=== PATIENT | male | born 1985 | race Caucasian/White ===

== ENCOUNTER 2016-06-19 22:52 | Emergency (ER) | payer SELFPAY ==
[~2016-06-19] VITALS: Ht 162.6 cm; Wt 91.3 kg
[~2016-06-19 22:52] MED LIST: ATOR-22 PO; ESOM20CA PO; LISI-461 PO
[2016-06-19 22:54] VITALS: TEMP 36.8; Ht 162.6 cm; Wt 91.3 kg
[2016-06-19 23:14] LABS: BASO % 0.5 %; BASO ABS # 0.05 K/uL (0-0.2); COMPLETE YES; EOS % 3.5 %; IG% 0.2 %; LYMPH % 38.9 %; LYMPH ABS # 4.27 K/uL (1.2-3.4); MEAN CELL VOLUME 86.9 fL (80-100); MEAN CORPUSCULAR HEMOGLOBIN 31.8 pg (25-34); MEAN CORPUSCULAR HGB CONC 36.6 g/dl (32-36); MEAN PLATELET VOLUME 10.1 fL (7.4-10.4); MONO % 11.1 %; NEUT % 45.8 %; PLATELET COUNT 203 K/uL (130-400); RED BLOOD COUNT 5.41 M/uL (4.7-6.1); WHITE BLOOD COUNT 10.99 K/uL (4.8-10.8)
[2016-06-19 23:16] VITALS: O2SAT 96
[2016-06-19] MEDS ORDERED: KETOROLAC TROMETHAMINE 30 MG/ML VIAL IV STA (23:30)
[2016-06-19 23:38] LABS: ALT/SGPT 42 U/L (12-78); AST/SGOT 12 U/L (15-37); BLOOD UREA NITROGEN 6 mg/dl (7-18); BUN/CREATININE RATIO 6.8 (10-20); CALCIUM 8.7 mg/dl (8.5-10.1); CARBON DIOXIDE 22 mmol/L (21-32); CHLORIDE 105 mmol/L (98-107); GLUCOSE 133 mg/dl (70-99); POTASSIUM 3.4 mmol/L (3.5-5.1); SODIUM 140 mmol/L (136-145)
[2016-06-19 23:44] LABS: ALKALINE PHOSPHATASE 53 U/L (45-117)
[2016-06-20] MEDS ORDERED: PRLSR20 PO (00:38)
[2016-06-20] MEDS ORDERED: ATOR10TA88 PO (00:39)
[2016-06-20] MEDS ORDERED: POTASSIUM CHLORIDE 10 MEQ TABCR PO STA (01:14)
--- NOTE | 2016-06-20 01:35 | EMERGENCY ROOM VISIT NOTE ---
History First contact with patient: 22:57 Chief Complaint: CHEST PAIN Stated Complaint: CHEST PAIN/PAIN IN L ARM, SHAKES, LIGHT HEADED Nursing Triage Summary: pt co intermittent cp since friday, states it is his left chest. hx smoking and htn. pt denies anything making pain worse or better. states he "sometimes feels sob." denies dizziness. co cough. pt alert and oriented x4. breathing WNL. History of Present Illness The patient is a 30 year old male who presents to the Emergency Room with complaints of chest pain for the past week described as aching, ranging in severity currently 4 out of 10 to the lower anterior chest. It does not radiate. Coughing makes it worse. Patient does smoke. Patient denies dyspnea , fever, chills, abdominal pain, nausea, vomiting, diarrhea, recent travel, leg pain or swelling. He does smoke. He has high blood pressure and cholesterol. No stress test in the past. His grandmother of heart disease in her 60s. No drug use. Review of Systems See HPI for pertinent positives & negatives. A total of 10 systems reviewed and were otherwise negative. Past Medical/Surgical History Medical Problems: (1) Acid reflux (2) Hypercholesteremia (3) Hypertension Family History Cancer Diabetes mellitus Hypertension Lung disease Social History Smoking Status: Current Every Day Smoker Alcohol Use: occasionally Drug Use: none Marital Status: Housing Status: lives with family Occupation Status: employed Current/Historical Medications Scheduled Atorvastatin (Lipitor), 10 MG PO DAILY Lisinopril (Lisinopril), 10 MG PO DAILY Omeprazole (Prilosec), 20 MG PO DAILY Allergies Coded Allergies: No Known Allergies (Unverified , NONE, 08/23/15) Physical Exam Vital Signs Date Time Temp Pulse Resp B/P Pulse Ox O2 Delivery O2 Flow Rate FiO2 06/20/16 00:13 86 18 153/97 97 Room Air 06/19/16 23:16 96 Room Air 06/19/16 23:14 96 Room Air 06/19/16 23:05 75 06/19/16 22:54 36.8 85 20 160/99 96 Room Air Physical Exam VITALS: Vitals are noted on the nurse's note and reviewed by myself. Vital signs stable. GENERAL: Pleasant male with tobacco odor, in no acute distress, nondiaphoretic, well-developed well-nourished. SKIN: The skin was without rashes, erythema, edema, or bruising. There is no tenting of the skin. Capillary reflex less than 2 seconds. HEAD: Normocephalic atraumatic. EARS: External auditory canals clear, tympanic membranes pearly knowles without erythema or effusion bilaterally. EYES: Pupils equal round and reactive to light and accommodation. Conjunctivae without injection, sclerae without icterus. Extraocular movements intact. NOSE: Patent, turbinates without inflammation or discharge. MOUTH: Mucous membranes moist. Pharynx without erythema or exudate. Uvula midline. Airway patent. Tongue does not deviate. NECK: Supple without nuchal rigidity. No lymphadenopathy. No thyromegaly. Cervical spine is nontender. No JVD. HEART: Regular rate and rhythm without murmurs gallops or rubs. Chest nontender to palpation LUNGS: Clear to auscultation bilaterally without wheezes, rales or rhonchi. No dullness to percussion. No retractions or accessory muscle use. ABDOMEN: Positive bowel sounds x 4. Normal tympanic percussion. Soft, nontender, without masses or organomegaly. Asencio sign negative. No guarding or rebound tenderness. MUSCULOSKELETAL: No muscle atrophy, erythema, or edema noted. NEURO: Patient was alert and oriented to person place and time. Normal sensation to light and sharp touch. No focal neurological deficits. Medical Decision & Procedures Laboratory Results 06/19/16 23:02 Red Blood Count 5.41, Mean Corpuscular Volume 86.9, Mean Corpuscular Hemoglobin 31.8, Mean Corpuscular Hemoglobin Concent 36.6, Mean Platelet Volume 10.1, Neutrophils (%) (Auto) 45.8, Lymphocytes (%) (Auto) 38.9, Monocytes (%) (Auto) 11.1, Eosinophils (%) (Auto) 3.5, Basophils (%) (Auto) 0.5, Neutrophils # (Auto ) 5.04, Lymphocytes # (Auto) 4.27, Monocytes # (Auto) 1.22, Eosinophils # (Auto ) 0.39, Basophils # (Auto) 0.05 06/19/16 23:02 Test 06/19/16 23:02 06/19/16 23:08 06/20/16 01:17 White Blood Count 10.99 K/uL (4.8-10.8) Red Blood Count 5.41 M/uL (4.7-6.1) Hemoglobin 17.2 g/dL (14.0-18.0) Hematocrit 47.0 % (42-52) Mean Corpuscular Volume 86.9 fL (80-100) Mean Corpuscular Hemoglobin 31.8 pg (25-34) Mean Corpuscular Hemoglobin Concent 36.6 g/dl (32-36) Platelet Count 203 K/uL (130-400) Mean Platelet Volume 10.1 fL (7.4-10.4) Neutrophils (%) (Auto) 45.8 % Lymphocytes (%) (Auto) 38.9 % Monocytes (%) (Auto) 11.1 % Eosinophils (%) (Auto) 3.5 % Basophils (%) (Auto) 0.5 % Neutrophils # (Auto) 5.04 K/uL (1.4-6.5) Lymphocytes # (Auto) 4.27 K/uL (1.2-3.4) Monocytes # (Auto) 1.22 K/uL (0.11-0.59) Eosinophils # (Auto) 0.39 K/uL (0-0.5) Basophils # (Auto) 0.05 K/uL (0-0.2) RDW Standard Deviation 40.5 fL (36.4-46.3) RDW Coefficient of Variation 12.7 % (11.5-14.5) Immature Granulocyte % (Auto) 0.2 % Immature Granulocyte # (Auto) 0.02 K/uL (0.00-0.02) Anion Gap 13.0 mmol/L (3-11) Est Creatinine Clear Calc Drug Dose 120.1 ml/min Estimated GFR () 130.5 Estimated GFR (Non- 112.6 BUN/Creatinine Ratio 6.8 (10-20) Calcium Level 8.7 mg/dl (8.5-10.1) Total Bilirubin 0.5 mg/dl (0.2-1) Direct Bilirubin 0.1 mg/dl (0-0.2) Aspartate Amino Transf (AST/SGOT) 12 U/L (15-37) Alanine Aminotransferase (ALT/SGPT) 42 U/L (12-78) Alkaline Phosphatase 53 U/L (45-117) Total Creatine Kinase 122 U/L (39-308) Creatine Kinase MB < 0.5 ng/ml (0.5-3.6) Creatine Kinase MB Ratio (0-3.0) Troponin I < 0.015 ng/ml (0-0.045) Total Protein 7.6 gm/dl (6.4-8.2) Albumin 4.2 gm/dl (3.4-5.0) Lipase 132 U/L (73-393) Bedside D-Dimer 87 ng/mlFEU (0-450) Bedside Troponin I 0.000 ng/ml (0-0.045) Medications Administered Medications (Trade) Dose Ordered Sig/Leon Route Start Time Stop Time Status Last Admin Dose Admin Ketorolac Tromethamine (Toradol Inj) 30 mg NOW STAT IV 06/19/16 23:30 06/19/16 23:31 DC 06/19/16 23:37 30 MG ED Course Prior records/ancillary studies reviewed. Triage Nursing notes reviewed. The patient's history was concerning for chest pain. Differential diagnosis: Etiologies such as cardiac ischemia, aortic dissection, pulmonary embolism, pneumonia, pneumothorax, musculoskeletal, infections, pericarditis, myocarditis , esophageal rupture, gastrointestinal, as well as others were entertained. Physical examination: As above. ER treatment provided: Toradol On reassessment the patient felt better. Diagnostic interpretation by me: The electrocardiogram was negative for pathologic change. Normal sinus, normal intervals, no acute ST-T wave changes. Impression normal sinus rhythm interpreted by myself The labs revealed negative troponin 2. Negative d-dimer Imaging studies: Chest x-ray with no acute consolidation, free air or pneumothorax per my interpretation Exam and history seem consistent with chest pain does not appear to be cardiac in nature. This could be related to pleurisy. Patient has been coughing. No pneumonia on x-ray. 2 negative troponins that are 2 hours apart. Negative d- dimer. Normal EKG. Patient was advised to rest, stay well-hydrated and he was encouraged to quit smoking. She was advised follow-up family medicine in a few days or here in the ER sooner for chest pain, difficulty breathing, fevers, worsening signs or symptoms or as needed. By the evaluation outlined above emergent etiologies such as cardiac ischemia, aortic dissection, pulmonary embolism, pneumonia, pneumothorax, infections, pericarditis, myocarditis, gastrointestinal, as well as others were deemed relatively unlikely. The pt informed about the findings as listed above. All questions were answered and pleased with the treatment. Return instructions were outlined and the patient was discharged in stable condition. Referral: The patient was referred back to primary care physician for follow-up in 2 to 3 days for a recheck of the current condition. Case reviewed with my attending Medical Decision As above Impression Primary Impression: Precordial chest pain Departure Information Dispostion Home / Self-Care Condition GOOD Referrals Erika Sebastian D.O. (PCP) Patient Instructions A Signature Page, My [facility] Additional Instructions Ibuprofen(Motrin, Advil) may be used for fever or pain. Use 600mg every six hours as needed. Take with food. Avoid using more than 2400mg in a 24 hour period. Do not use 2400mg per day for more than three consecutive days without physician direction. Prolonged inappropriate use can lead to stomach upset or ulcers. (AND/OR) Acetaminophen(Tylenol) may be used for fever or pain. Use 1000mg every six hours as needed. Avoid using more than 3000mg in a 24 hour period. Rest and drink plenty of fluids as tolerated. Continue current medications. Avoid strenuous activities and anything that worsens your pain. Resume normal activities once your symptoms resolve. Return to the ER immediately for worsening or persistent chest pain, abdominal pain, vomiting, fevers, chest pains, difficulty breathing, worsening of your condition, or as needed. Follow up with your primary physician in 2-3 days for a recheck of your current condition.
[2016-06-20 01:45] VITALS: BP 141/90; PULSE 71; O2SAT 98
--- NOTE | 2016-06-20 07:27 | DIAGNOSTIC IMAGING REPORT ---
SINGLE VIEW CHEST CLINICAL HISTORY: Atypical chest pain. FINDINGS: An AP, portable, upright chest radiograph is compared to study dated 12/05/2015. The cardiomediastinal silhouette is unremarkable. The lungs and pleural spaces are clear. No pneumothorax is seen. The bony thorax is grossly intact. IMPRESSION: No active disease in the chest. Electronically signed by: Carlos Alegria M.D. 06/20/2016 7:26 AM Dictated Date/Time: 06/20/2016 7:25 AM
== END 2016-06-20 01:48 | disposition home or self-care (01) ==
LOC: C.EDB 22:53 → C.EDA 06-20 01:48
DX: R07.2 Precordial pain (principal); E78.00 Pure hypercholesterolemia, unspecified; I10 Essential (primary) hypertension; K21.9 Gastro-esophageal reflux disease without esophagitis; F17.200 Nicotine dependence, unspecified, uncomplicated; Z80.9 Family history of malignant neoplasm, unspecified; Z83.3 Family history of diabetes mellitus; Z82.49 Family history of ischemic heart disease and other diseases of the circulatory system

== ENCOUNTER 2016-10-21 20:50 | Emergency (ER) | payer SELFPAY ==
[~2016-10-21] VITALS: Ht 162.6 cm; Wt 91.0 kg
[~2016-10-21 20:50] MED LIST changes: -ATOR-22 PO; +ATOR10TA82 PO; -ESOM20CA PO; +PRLSR20 PO
[2016-10-21 20:56] VITALS: TEMP 36.8; Ht 162.6 cm; Wt 91.0 kg
--- NOTE | 2016-10-21 21:04 | EMERGENCY ROOM VISIT NOTE ---
History Report prepared by Yany: Ness Macedo Under the Supervision of: Dr. Josh Bhardwaj M.D. First contact with patient: 20:56 Chief Complaint: CHEST PAIN Stated Complaint: CHEST PAINS History of Present Illness The patient is a 31 year old male who presents to the Emergency Room with complaints of persistent chest pain that began today around 0700. He currently rates his discomfort as a 5/10 in severity. The patient states that he has a history of chest pain, noting that he has been evaluated in the emergency department before for his symptoms. He states that he has followed up with cardiology in the past. The patient states that he is an every day smoker, noting that he smokes approximately 2 packs per day. He states that his pain increases when the pressure increases in his chest, noting that he notices increased pain with smoking or drinking thorough a straw. The patient states that he is noncompliant with his blood pressure medications. Source of History: patient Onset: today around 0700 Position: chest Symptom Intensity: 5/10 Timing: other (persistent) Modifying Factors (Worsening): other (increased pressure in chest, drinking through a straw, smoking) Review of Systems See HPI for pertinent positives & negatives. A total of 10 systems reviewed and were otherwise negative. Past Medical & Surgical Medical Problems: (1) Acid reflux (2) Hypercholesteremia (3) Hypertension Family History Cancer Diabetes mellitus Hypertension Lung disease Social History Smoking Status: Current Every Day Smoker Alcohol Use: occasionally Drug Use: none Marital Status: Housing Status: lives with family Occupation Status: employed Current/Historical Medications Scheduled Atorvastatin (Lipitor), 10 MG PO DAILY Lisinopril (Lisinopril), 10 MG PO DAILY Lisinopril (Zestril), 1 TAB PO DAILY Omeprazole (Prilosec), 20 MG PO DAILY Allergies Coded Allergies: No Known Allergies (Unverified , NONE, 08/23/15) Physical Exam Vital Signs Date Time Temp Pulse Resp B/P Pulse Ox O2 Delivery O2 Flow Rate FiO2 10/21/16 22:43 67 16 149/80 99 10/21/16 22:00 76 12 160/102 98 Room Air 10/21/16 21:15 97 Room Air 10/21/16 21:15 97 Room Air 10/21/16 21:15 97 Room Air 10/21/16 21:06 71 10/21/16 20:56 36.8 68 16 175/114 97 Room Air Physical Exam GENERAL: Patient is a healthy-appearing well-nourished HEAD: Normocephalic atraumatic EYES: Ocular movements intact pupils equal and react to light OROPHARYNX mucous membranes are moist no exudates present no erythema or edema present NECK: Supple no nuchal rigidity CHEST WALL: Tender to palpation on the chest wall CHEST: Good equal expansion LUNGS: Clear and equal to auscultation CARDIAC: Normal S1 and S2 ABDOMEN: Soft nontender no guarding BACK: No CVA tenderness EXTREMITIES: No pain upon palpation normal muscle strength in all groups no clubbing cyanosis or edema NEURO: Patient is following commands is answering questions appropriately. Alert and oriented x3 Cranial Nerves 2-12 grossly intact Medical Decision & Procedures ER Provider Diagnostic Interpretation: X-ray results as stated below per interpretation by me and the radiologist: SINGLE VIEW CHEST CLINICAL HISTORY: Atypical chest pain. FINDINGS: An AP, portable, upright chest radiograph is compared to study dated 06/19/2016. The cardiomediastinal silhouette is unremarkable. The lungs and pleural spaces are clear. No pneumothorax is seen. The bony thorax is grossly intact. IMPRESSION: No active disease in the chest. Electronically signed by: Carlos Alegria M.D. 10/21/2016 9:28 PM Dictated Date/Time: 10/21/2016 9:27 PM Laboratory Results 10/21/16 21:15 Red Blood Count 5.43, Mean Corpuscular Volume 88.4, Mean Corpuscular Hemoglobin 30.9, Mean Corpuscular Hemoglobin Concent 35.0, Mean Platelet Volume 9.6, Neutrophils (%) (Auto) 43.4, Lymphocytes (%) (Auto) 40.5, Monocytes (%) (Auto) 11.9, Eosinophils (%) (Auto) 3.4, Basophils (%) (Auto) 0.6, Neutrophils # (Auto ) 4.35, Lymphocytes # (Auto) 4.05, Monocytes # (Auto) 1.19, Eosinophils # (Auto ) 0.34, Basophils # (Auto) 0.06 10/21/16 21:15 Test 10/21/16 21:15 White Blood Count 10.01 K/uL (4.8-10.8) Red Blood Count 5.43 M/uL (4.7-6.1) Hemoglobin 16.8 g/dL (14.0-18.0) Hematocrit 48.0 % (42-52) Mean Corpuscular Volume 88.4 fL (80-100) Mean Corpuscular Hemoglobin 30.9 pg (25-34) Mean Corpuscular Hemoglobin Concent 35.0 g/dl (32-36) Platelet Count 213 K/uL (130-400) Mean Platelet Volume 9.6 fL (7.4-10.4) Neutrophils (%) (Auto) 43.4 % Lymphocytes (%) (Auto) 40.5 % Monocytes (%) (Auto) 11.9 % Eosinophils (%) (Auto) 3.4 % Basophils (%) (Auto) 0.6 % Neutrophils # (Auto) 4.35 K/uL (1.4-6.5) Lymphocytes # (Auto) 4.05 K/uL (1.2-3.4) Monocytes # (Auto) 1.19 K/uL (0.11-0.59) Eosinophils # (Auto) 0.34 K/uL (0-0.5) Basophils # (Auto) 0.06 K/uL (0-0.2) RDW Standard Deviation 43.5 fL (36.4-46.3) RDW Coefficient of Variation 13.5 % (11.5-14.5) Immature Granulocyte % (Auto) 0.2 % Immature Granulocyte # (Auto) 0.02 K/uL (0.00-0.02) Anion Gap 8.0 mmol/L (3-11) Est Creatinine Clear Calc Drug Dose 116.2 ml/min Estimated GFR () 126.2 Estimated GFR (Non- 108.9 BUN/Creatinine Ratio 5.9 (10-20) Calcium Level 9.3 mg/dl (8.5-10.1) Total Bilirubin 0.3 mg/dl (0.2-1) Direct Bilirubin < 0.1 mg/dl (0-0.2) Aspartate Amino Transf (AST/SGOT) 16 U/L (15-37) Alanine Aminotransferase (ALT/SGPT) 35 U/L (12-78) Alkaline Phosphatase 43 U/L (45-117) Total Creatine Kinase 165 U/L (39-308) Creatine Kinase MB 0.5 ng/ml (0.5-3.6) Creatine Kinase MB Ratio 0.3 (0-3.0) Troponin I < 0.015 ng/ml (0-0.045) Total Protein 7.3 gm/dl (6.4-8.2) Albumin 4.1 gm/dl (3.4-5.0) Lipase 121 U/L (73-393) Labs reviewed by ED physician. Medications Administered Medications (Trade) Dose Ordered Sig/Leon Route Start Time Stop Time Status Last Admin Dose Admin Sodium Chloride (Nss 1000ml) 1,000 ml @ 999 mls/hr Q1H1M STAT IV 10/21/16 21:40 10/21/16 22:40 DC 10/21/16 22:08 999 MLS/HR Ketorolac Tromethamine (Toradol Inj) 30 mg NOW STAT IV 10/21/16 21:40 10/21/16 21:41 DC 10/21/16 22:08 30 MG Potassium Chloride (Klor-Con Tab) 40 meq NOW STAT PO 10/21/16 22:01 10/21/16 22:02 DC 10/21/16 22:14 40 MEQ Lisinopril (Zestril Tab) 10 mg NOW STAT PO 10/21/16 22:02 10/21/16 22:03 DC 10/21/16 22:13 10 MG ECG Indication: chest pain Rate (beats per minute): 5/10 Rhythm: normal sinus Findings: no acute ischemic change, no ectopy ED Course 2058: Past medical records reviewed. The patient was evaluated in room A10. A complete history and physical examination was performed. 2139: Ordered Toradol Inj 30 mg IV, Sodium Chloride 1000 ml @ 999 mls/hr IV. 2200: Potassium Chloride 40 meq PO. 2201: Ordered Lisinopril 10 mg PO. 2205: I reevaluated the patient and he is resting comfortably. I discussed the exam findings with him and I discussed the treatment plan. He verbalized complete understanding and agreement. He is ready to go home. Medical Decision Differential diagnosis: Etiologies such as cardiac ischemia, aortic dissection, pulmonary embolism, pneumonia, pneumothorax, musculoskeletal, infections, pericarditis, myocarditis , esophageal rupture, gastrointestinal, as well as others were entertained. This is a 31-year-old male who presents emergency department complaining of chest pain as well as hypertension. The patient has been evaluated in the emergency department several times for this. I will note that his chest pain has been ongoing for the past 12 hours and because of this I would expect his CK -MB troponin to be elevated if this were related to cardiac ischemia. As such it is not. Based on these findings an IV was established, patient given normal saline bolus. The patient reports he has not been taking his blood pressure medication. For this reason he was given his Cipro and emergency department I strongly cautioned that the patient's blood pressure was elevated here in the emergency department and that he needed to start taking His blood pressure medication as well as stop smoking. I also advised the patient that he needs follow-up with cardiology however I will note that his chest pain appears to be reproducible on physical examination. Impression Primary Impression: Precordial chest pain Additional Impression: Hypertension Scribe Attestation The scribe's documentation has been prepared under my direction and personally reviewed by me in its entirety. I confirm that the note above accurately reflects all work, treatment, procedures, and medical decision making performed by me. Departure Information Dispostion Home / Self-Care Prescriptions Lisinopril (ZESTRIL) 10 Mg Tab 1 TAB PO DAILY for 30 Days, #30 TAB Prov: Josh Bhardwaj MD 10/21/16 Referrals No Doctor, Assigned (PCP) Bernard Hogan, Erika Little DIno. Forms HOME CARE DOCUMENTATION FORM, IMPORTANT VISIT INFORMATION, School Instructions, Work Instructions Patient Instructions Chest Pain - [facility], ED Hypertension Conf Out Of Control, My [facility] Additional Instructions Take Blood pressure medication as prescribed Follow up with DR Hogan's office No strenuous activity until follow up You have been examined and treated today on an emergency basis only. This is not a substitute for, or an effort to provide, complete comprehensive medical care. It is impossible to recognize and treat all injuries or illnesses in a single emergency department visit. It is therefore important that you follow up closely with DR Sebastian. Call as soon as possible for an appointment. Thank you for your time and consideration. I look forward to speaking with you again soon. Please don't hesitate to call us if you have any questions. Problem Qualifiers Additional Impression: Hypertension Hypertension type: unspecified secondary hypertension Qualified Codes: I15.9 - Secondary hypertension, unspecified
[2016-10-21 21:15] VITALS: O2SAT 97
[2016-10-21 21:27] LABS: BASO % 0.6 %; BASO ABS # 0.06 K/uL (0-0.2); COMPLETE YES; EOS % 3.4 %; IG% 0.2 %; LYMPH % 40.5 %; LYMPH ABS # 4.05 K/uL (1.2-3.4); MEAN CELL VOLUME 88.4 fL (80-100); MEAN CORPUSCULAR HEMOGLOBIN 30.9 pg (25-34); MEAN PLATELET VOLUME 9.6 fL (7.4-10.4); MONO % 11.9 %; NEUT % 43.4 %; PLATELET COUNT 213 K/uL (130-400); RED BLOOD COUNT 5.43 M/uL (4.7-6.1); WHITE BLOOD COUNT 10.01 K/uL (4.8-10.8)
--- NOTE | 2016-10-21 21:29 | DIAGNOSTIC IMAGING REPORT ---
SINGLE VIEW CHEST CLINICAL HISTORY: Atypical chest pain. FINDINGS: An AP, portable, upright chest radiograph is compared to study dated 06/19/2016. The cardiomediastinal silhouette is unremarkable. The lungs and pleural spaces are clear. No pneumothorax is seen. The bony thorax is grossly intact. IMPRESSION: No active disease in the chest. Electronically signed by: Carlos Alegria M.D. 10/21/2016 9:28 PM Dictated Date/Time: 10/21/2016 9:27 PM
[2016-10-21] MEDS ORDERED: SODIUM CHLORIDE 0.9% 1000ML 1,000 ML IV STA (21:40)
[2016-10-21] MEDS ORDERED: KETOROLAC TROMETHAMINE 30 MG/ML VIAL IV STA (21:40)
[2016-10-21 21:42] LABS: ALT/SGPT 35 U/L (12-78); BLOOD UREA NITROGEN 5 mg/dl (7-18); BUN/CREATININE RATIO 5.9 (10-20); CARBON DIOXIDE 26 mmol/L (21-32); CHLORIDE 105 mmol/L (98-107); CREATININE 0.92 mg/dl (0.60-1.40); GLUCOSE 93 mg/dl (70-99); POTASSIUM 3.4 mmol/L (3.5-5.1); SODIUM 139 mmol/L (136-145)
[2016-10-21 21:47] LABS: ALKALINE PHOSPHATASE 43 U/L (45-117); AST/SGOT 16 U/L (15-37); CKMB/CK RATIO 0.3 (0-3.0)
[2016-10-21 21:58] LABS: CALCIUM 9.3 mg/dl (8.5-10.1)
[2016-10-21] MEDS ORDERED: POTASSIUM CHLORIDE 20 MEQ TABCR PO STA (22:01)
[2016-10-21] MEDS ORDERED: LISINOPRIL 10 MG TAB PO STA (22:02)
[2016-10-21] MEDS ORDERED: LISI-461 PO (22:10)
[2016-10-21 22:43] VITALS: BP 149/80; PULSE 67; O2SAT 99
== END 2016-10-21 22:44 | disposition home or self-care (01) ==
LOC: C.EDB 20:51 → C.EDA 22:44
DX: R07.2 Precordial pain (principal); I15.9 Secondary hypertension, unspecified; F17.210 Nicotine dependence, cigarettes, uncomplicated; Z91.14 Patient's other noncompliance with medication regimen; K21.9 Gastro-esophageal reflux disease without esophagitis; E78.00 Pure hypercholesterolemia, unspecified; Z80.9 Family history of malignant neoplasm, unspecified; Z83.3 Family history of diabetes mellitus; Z82.49 Family history of ischemic heart disease and other diseases of the circulatory system; Z79.899 Other long term (current) drug therapy

== ENCOUNTER 2017-07-21 19:09 | Emergency (ER) | payer OTHER ==
[~2017-07-21] VITALS: Ht 162.6 cm; Wt 93.0 kg
[2017-07-21 19:46] VITALS: TEMP 36.8; Ht 162.6 cm; Wt 93.0 kg
[2017-07-21] MEDS ORDERED: IBUPROFEN 600 MG TAB PO STA (20:09)
[2017-07-21] MEDS ORDERED: HYDROCODONE/ACETAMIN 5/325MG TAB PO ONE (20:15)
--- NOTE | 2017-07-21 20:53 | DIAGNOSTIC IMAGING REPORT ---
(CHEST) THORAX WITHOUT CT DOSE: 539.28 mGy.cm CLINICAL HISTORY: 31 years-old Male with Fall from ice. Mid back and right chest pain. Acute chest injury status post fall TECHNIQUE: Multiaxial CT images of the chest were performed without contrast. A dose lowering technique was utilized adhering to the principles of ALARA. COMPARISON: The thoracic spine of same day. FINDINGS: Thyroid is homogeneous without dominant nodule. Probable residual thymic tissue of the anterior mediastinum. No pathologic adenopathy identified. Coronary arterial calcifications are seen, greater than expected in a patient of this age group. Thoracic aorta is normal in both course and caliber. There is no pneumothorax, pleural effusion or focal airspace consolidation. There are patchy ill-defined groundglass opacities of the right lower lobe with ill-defined groundglass centrilobular opacities of the bilateral lower lobes. Central airways appear patent with mild bilateral bronchial wall thickening. No acute abnormality of the imaged upper abdomen. Contracted gallbladder. Soft tissues are unremarkable. Bones appear intact. No rib or sternal fracture. Schmorl's nodes are seen within the thoracic spine. IMPRESSION: 1. No acute posttraumatic abnormality of the chest identified. 2. Subtle patchy groundglass opacities of the right lower lobe with bibasilar centrilobular groundglass opacities suggesting mild bronchopneumonia or infectious/inflammatory pneumonitis. No lobar airspace consolidations. 3. Mild bilateral bronchial wall thickening suggests bronchitis. Electronically signed by: Albino Escalante M.D. 07/21/2017 8:52 PM Dictated Date/Time: 07/21/2017 8:44 PM
--- NOTE | 2017-07-21 20:57 | DIAGNOSTIC IMAGING REPORT ---
THORACIC SPINE WITHOUT HISTORY: 31 years-old Male Fall from ice. Mid back and right chest pain acute mid thoracic spine pain status post fall COMPARISON: CT chest of same day, thoracic spine radiographs 12/09/2009 TECHNIQUE: Multiple axial CT images of the thoracic spine were obtained without contrast. A dose lowering technique was used consistent with the principals of JAIMIE. FINDINGS: No acute fracture or subluxation identified. No compression deformity. Small multilevel Schmorl's nodes are seen throughout. No significant intervertebral disc space narrowing, central canal or foraminal narrowing identified. No rib fracture identified. Mild residual thymic tissue of the anterior mediastinum. Coronary arterial disease, greater than expected in a patient of this age group. Mild groundglass opacities are noted of the bilateral lung bases. IMPRESSION: 1. Mild multilevel degenerative changes of the thoracic spine without acute fracture or subluxation. 2. Coronary arterial disease appears greater than expected in a patient of this age group. The above report was generated using voice recognition software. It may contain grammatical, syntax or spelling errors. Electronically signed by: Albnio Escalante M.D. 07/21/2017 8:56 PM Dictated Date/Time: 07/21/2017 8:52 PM
[2017-07-21 21:57] VITALS: BP 159/98; PULSE 90; O2SAT 95
[2017-07-21] MEDS ORDERED: NORCO 5/325MG HOME PACK PO ONE (22:00)
--- NOTE | 2017-07-22 00:16 | EMERGENCY ROOM VISIT NOTE ---
History First contact with patient: 20:02 Chief Complaint: BACK PAIN Stated Complaint: BACK PAIN - SHARP STABBING PAIN TO BACK AND RIBS History of Present Illness The patient is a 31 year old male who presents to the Emergency Room with complaints of mid back and right-sided rib pain after falling about 2 hours ago. The patient states that he slipped on ice, and landed onto concrete. He did not strike his head or lose consciousness. His discomfort worsens with certain range of motion. He rates his discomfort at rest at 3/10 which increases to 8/10 with certain positions. The patient does not have distinct shortness of breath or chest pain. He has not taken anything [id number] for his discomfort. Review of Systems More than 10 systems were reviewed and otherwise negative with the exception of history of present illness. Past Medical/Surgical History Medical Problems: (1) Acid reflux (2) Hypercholesteremia (3) Hypertension Family History Cancer Diabetes mellitus Hypertension Lung disease Social History Smoking Status: Current Every Day Smoker Alcohol Use: occasionally Drug Use: none Marital Status: Housing Status: lives with family Occupation Status: employed Current/Historical Medications No Active Prescriptions or Reported Meds Physical Exam Vital Signs Date Time Temp Pulse Resp B/P (MAP) Pulse Ox O2 Delivery O2 Flow Rate FiO2 07/21/17 21:57 90 18 159/98 95 07/21/17 19:46 36.8 90 18 154/83 95 Room Air Physical Exam VITALS: Vitals are noted on the nurse's note and reviewed by myself. Vital signs stable. GENERAL: Well-developed, well-nourished, white male, who is in no acute distress and resting comfortably. Patient is cooperative with the examination. HEAD: Normocephalic atraumatic. EARS: External ear normal. External auditory canals clear, tympanic membranes pearly knowles without erythema or effusion bilaterally. EYES: Pupils equal round and reactive to light and accommodation. Conjunctivae without injection, sclerae without icterus. Extraocular movements intact. NOSE: Patent, turbinates without inflammation or discharge. MOUTH: Mucous membranes moist. Tonsils are not enlarged. Pharynx without erythema, blood, or exudate. Uvula midline. Airway patent. NECK: Supple without nuchal rigidity. No lymphadenopathy. No thyromegaly. Cervical spine is nontender. HEART: Regular rate and rhythm without murmurs gallops or rubs. LUNGS: Clear to auscultation bilaterally without wheezes, rales or rhonchi. No retractions or accessory muscle use. ABDOMEN: Positive normal bowel sounds x 4. Soft, nontender, without masses or organomegaly. No guarding or rebound tenderness. MUSCULOSKELETAL: Tenderness appreciated throughout the mid right side of the thoracic spine. No upper or lower spinal tenderness appreciated. There is rib visible tenderness throughout the right side ribs roughly the seventh and eighth distribution laterally NEURO: Patient was alert and oriented to person place and time. CN II through XII grossly intact. No focal neurological deficits. Deep tendon reflexes 2+ throughout. SKIN: The skin was without rashes, erythema, edema, or bruising. Capillary refill less than 2 seconds. Medical Decision & Procedures ER Provider Diagnostic Interpretation: (CHEST) THORAX WITHOUT CT DOSE: 539.28 mGy.cm CLINICAL HISTORY: 31 years-old Male with Fall from ice. Mid back and right chest pain. Acute chest injury status post fall TECHNIQUE: Multiaxial CT images of the chest were performed without contrast. A dose lowering technique was utilized adhering to the principles of ALARA. COMPARISON: The thoracic spine of same day. FINDINGS: Thyroid is homogeneous without dominant nodule. Probable residual thymic tissue of the anterior mediastinum. No pathologic adenopathy identified. Coronary arterial calcifications are seen, greater than expected in a patient of this age group. Thoracic aorta is normal in both course and caliber. There is no pneumothorax, pleural effusion or focal airspace consolidation. There are patchy ill-defined groundglass opacities of the right lower lobe with ill-defined groundglass centrilobular opacities of the bilateral lower lobes. Central airways appear patent with mild bilateral bronchial wall thickening. No acute abnormality of the imaged upper abdomen. Contracted gallbladder. Soft tissues are unremarkable. Bones appear intact. No rib or sternal fracture. Schmorl's nodes are seen within the thoracic spine. IMPRESSION: 1. No acute posttraumatic abnormality of the chest identified. 2. Subtle patchy groundglass opacities of the right lower lobe with bibasilar centrilobular groundglass opacities suggesting mild bronchopneumonia or infectious/inflammatory pneumonitis. No lobar airspace consolidations. 3. Mild bilateral bronchial wall thickening suggests bronchitis. THORACIC SPINE WITHOUT HISTORY: 31 years-old Male Fall from ice. Mid back and right chest pain acute mid thoracic spine pain status post fall COMPARISON: CT chest of same day, thoracic spine radiographs 12/09/2009 TECHNIQUE: Multiple axial CT images of the thoracic spine were obtained without contrast. A dose lowering technique was used consistent with the principals of JAIMIE. FINDINGS: No acute fracture or subluxation identified. No compression deformity. Small multilevel Schmorl's nodes are seen throughout. No significant intervertebral disc space narrowing, central canal or foraminal narrowing identified. No rib fracture identified. Mild residual thymic tissue of the anterior mediastinum. Coronary arterial disease, greater than expected in a patient of this age group. Mild groundglass opacities are noted of the bilateral lung bases. IMPRESSION: 1. Mild multilevel degenerative changes of the thoracic spine without acute fracture or subluxation. 2. Coronary arterial disease appears greater than expected in a patient of this age group. Medications Administered Medications (Trade) Dose Ordered Sig/Leon Route Start Time Stop Time Status Last Admin Dose Admin Acetaminophen/ Hydrocodone Bitart ([place] 5/325 Tab) 1 tab NOW ONCE PO 07/21/17 20:15 07/21/17 20:16 DC 07/21/17 20:24 1 TAB Ibuprofen (Motrin Tab) 600 mg NOW STAT PO 07/21/17 20:09 07/21/17 20:10 DC 07/21/17 20:24 600 MG Acetaminophen/ Hydrocodone Bitart ([place] 5/325mg Home Pack) 1 homepack UD ONCE PO 07/21/17 22:00 07/21/17 22:01 DC 07/21/17 21:54 1 HOMEPACK ED Course Physical exam and history were performed. Nursing notes, EMR, and Medication List were personally reviewed. Patient appears to have suffered a fall on ice with injury to his back and right -sided ribs. The patient does have reproducible tenderness on palpation. He was given a dose of Vicodin and ibuprofen by mouth here in the department. CT scans were performed. The patient's CT scans are as above and reviewed by myself and radiology. He does not appear to have an acute bony abnormality. I did review the results with the patient, who is not currently having respiratory difficulty. The patient will need to follow with his primary care physician in the next few days for recheck. I will give him a home pack of a medication and invited back to the ER with any new, worsening, or concerning symptoms. The chart was completed utilizing [employer] Speech Voice Recognition Software. Grammatical errors, random word insertions, pronoun errors, and incomplete sentences are an occasional consequence of this system due to software limitations, ambient noise, and hardware issues. Any formal questions or concerns about the content, text, or information contained within the body of this dictation should be directly addressed to the provider for clarification. . Medical Decision Differential diagnosis includes, but is not limited to: Sprain, strain, fracture , dislocation, subluxation, contusion, and others Impression Primary Impression: Fall from slipping on ice Additional Impression: Contusion of back Departure Information Dispostion Home / Self-Care Condition GOOD Prescriptions No Active Prescriptions or Reported Meds Forms HOME CARE DOCUMENTATION FORM, Work Instructions, Additional Instructions: Patient was seen and evaluated today in the emergency department fo medical care. Return to work on 07/25/2017. Please excuse. IMPORTANT VISIT INFORMATION Patient Instructions [facility] Additional Instructions You were seen and evaluated today on an emergency basis only. This is not a substitute for, or an effort to provide, complete comprehensive medical care. It is not possible to recognize and treat all injuries or illnesses in a single emergency department visit. For this reason it is recommended that you followup with your primary care physician this week for recheck For baseline pain relief you may alternate ibuprofen and acetaminophen every 4 hours for pain control. Take 600 mg ibuprofen (Advil) and then 4 hours later take 1000 mg acetaminophen (Tylenol). Do not take more than 3000 mg acetaminophen in a single day. [place] (hydrocodone/acetaminophen) 5/325 mg (homepack) every 6 hours as needed for worsening breakthrough pain. Do not drink or drive on [place]. This medication will likely make you tired. Do not take [place] and Tylenol at the same time as both contain acetaminophen. [place] may cause constipation. You may wish to take an [id number] stool softener like Colace if this occurs. You are welcome to return to the emergency department anytime with new, worsening, or concerning symptoms. Work Instructions Additional Work Instructions: Patient was seen and evaluated today in the emergency department for medical care. Return to work on 07/25/2017. Please excuse. Problem Qualifiers
== END 2017-07-21 21:57 | disposition home or self-care (01) ==
LOC: C.EDB 19:10 → C.EDD 21:57
DX: S20.229A Contusion of unspecified back wall of thorax, initial encounter (principal); R07.9 Chest pain, unspecified; W00.0XXA Fall on same level due to ice and snow, initial encounter; I10 Essential (primary) hypertension; E78.00 Pure hypercholesterolemia, unspecified; F17.210 Nicotine dependence, cigarettes, uncomplicated

== ENCOUNTER 2017-08-05 22:24 | Emergency (ER) | payer OTHER ==
[~2017-08-05] VITALS: Ht 162.6 cm; Wt 91.5 kg
[2017-08-05 22:26] VITALS: TEMP 36.8; Ht 162.6 cm; Wt 91.5 kg
[2017-08-05] MEDS ORDERED: ACETAMINOPHEN 325 MG TAB PO STA (22:32)
[2017-08-05] MEDS ORDERED: IBUPROFEN 600 MG TAB PO STA (22:32)
[2017-08-05] MEDS ORDERED: DOXYCYCLINE HYCLATE 100 MG CAP PO STA (22:32)
--- NOTE | 2017-08-05 22:41 | EMERGENCY ROOM VISIT NOTE ---
History Report prepared by Yany: Lamine Mckeon Under the Supervision of: Dr. Chapito Banegas M.D. First contact with patient: 22:32 Chief Complaint: BITE Stated Complaint: ACHES, RANDOM FALLING OVER, TICK BITE History of Present Illness The patient is a 31 year old white male with a past medical history of HTN and HLD who presents to the ED with a cc of persistent weakness beginning yesterday morning. Positive tick bite (removed), lower extremity joint pain, black area on right thigh where bite was. Negative nausea, vomiting. He notes that he probably got bitten by the tick 2 days ago, and removed the tick bite yesterday afternoon by himself. The patient says that he does not take any medications on a daily basis, and he has no surgical history. He is a smoker. Source of History: patient Onset: Yesterday morning Position: other (global) Symptom Intensity: tick bite Quality: other (weakness) Timing: other (persistent) Associated Symptoms: No nausea, No vomiting Note: Positive lower extremity joint pain, black area on right thigh where bite was. Review of Systems See HPI for pertinent positives and negatives. A total of ten systems were reviewed and were otherwise negative. Past Medical & Surgical Medical Problems: (1) Acid reflux (2) Hypercholesteremia (3) Hypertension Family History Cancer Diabetes mellitus Hypertension Lung disease Social History Smoking Status: Current Every Day Smoker Alcohol Use: occasionally Drug Use: none Marital Status: Housing Status: lives with family Occupation Status: employed Current/Historical Medications Scheduled Atorvastatin (Lipitor), 10 MG PO DAILY Doxycycline Monohydrate (Monodox), 100 MG PO BID Lisinopril (Lisinopril), 10 MG PO DAILY Omeprazole (Prilosec), 20 MG PO DAILY [Hydroxycut], 1 TAB PO DAILY Allergies Coded Allergies: No Known Allergies (Unverified , NONE, 08/23/15) Physical Exam Vital Signs Date Time Temp Pulse Resp B/P (MAP) Pulse Ox O2 Delivery O2 Flow Rate FiO2 08/05/17 22:26 36.8 77 18 125/77 96 Room Air Physical Exam GENERAL: Awake, alert, well-appearing, NAD HENT: Normocephalic, atraumatic. EYES: Normal conjunctiva. Sclera non-icteric. NECK: Supple. No nuchal rigidity. FROM. RESPIRATORY: CTAB, no rhonchi, wheezing, crackles CARDIAC: RRR, no MRG ABDOMEN: Soft, NTND, BS+ MSK: Proximal anterior thigh, small half-cm eschar with surrounding blanching erythema. Compartments are soft in that thigh, MVI distally, good ROM of hip, knee, and ankle. No chest wall TTP. NEURO: GCS 15, CN 2-12 intact, moves all 4s on command SKIN: No rash or jaundice noted. Medical Decision & Procedures Laboratory Results 08/05/17 22:00 Red Blood Count 4.94, Mean Corpuscular Volume 88.7, Mean Corpuscular Hemoglobin 33.0, Mean Corpuscular Hemoglobin Concent 37.2, Mean Platelet Volume 9.8, Neutrophils (%) (Auto) 47.0, Lymphocytes (%) (Auto) 34.5, Monocytes (%) (Auto) 13.1, Eosinophils (%) (Auto) 4.6, Basophils (%) (Auto) 0.6, Neutrophils # (Auto ) 4.85, Lymphocytes # (Auto) 3.55, Monocytes # (Auto) 1.35, Eosinophils # (Auto ) 0.47, Basophils # (Auto) 0.06 08/05/17 22:00 Test 08/05/17 22:00 White Blood Count 10.30 K/uL (4.8-10.8) Red Blood Count 4.94 M/uL (4.7-6.1) Hemoglobin 16.3 g/dL (14.0-18.0) Hematocrit 43.8 % (42-52) Mean Corpuscular Volume 88.7 fL (80-100) Mean Corpuscular Hemoglobin 33.0 pg (25-34) Mean Corpuscular Hemoglobin Concent 37.2 g/dl (32-36) Platelet Count 190 K/uL (130-400) Mean Platelet Volume 9.8 fL (7.4-10.4) Neutrophils (%) (Auto) 47.0 % Lymphocytes (%) (Auto) 34.5 % Monocytes (%) (Auto) 13.1 % Eosinophils (%) (Auto) 4.6 % Basophils (%) (Auto) 0.6 % Neutrophils # (Auto) 4.85 K/uL (1.4-6.5) Lymphocytes # (Auto) 3.55 K/uL (1.2-3.4) Monocytes # (Auto) 1.35 K/uL (0.11-0.59) Eosinophils # (Auto) 0.47 K/uL (0-0.5) Basophils # (Auto) 0.06 K/uL (0-0.2) RDW Standard Deviation 42.1 fL (36.4-46.3) RDW Coefficient of Variation 13.1 % (11.5-14.5) Immature Granulocyte % (Auto) 0.2 % Immature Granulocyte # (Auto) 0.02 K/uL (0.00-0.02) Anion Gap 6.0 mmol/L (3-11) Est Creatinine Clear Calc Drug Dose 126.1 ml/min Estimated GFR () 132.7 Estimated GFR (Non- 114.5 BUN/Creatinine Ratio 10.5 (10-20) Calcium Level 8.4 mg/dl (8.5-10.1) Medications Administered Medications (Trade) Dose Ordered Sig/Leon Route Start Time Stop Time Status Last Admin Dose Admin Ibuprofen (Motrin Tab) 600 mg NOW STAT PO 08/05/17 22:32 08/05/17 22:42 DC 08/05/17 22:59 600 MG Acetaminophen (Tylenol Tab) 650 mg NOW STAT PO 08/05/17 22:32 08/05/17 22:42 DC 08/05/17 22:59 650 MG Doxycycline Hyclate (Vibramycin Cap) 100 mg NOW STAT PO 08/05/17 22:32 08/05/17 22:42 DC 08/05/17 22:59 100 MG ED Course 2234: The patient was evaluated in room B9. A complete history and physical exam was performed. 1157: Upon reexamination, the patient was feeling well. I discussed the test results and treatment plan with him. The patient will be d/c'ed to home w/ antibiotics. Medical Decision The patient is a 31 year old white male with a past medical history of HTN and HLD who presents to the ED with a cc of persistent weakness beginning yesterday morning. Positive tick bite (removed), lower extremity joint pain, black area on right thigh where bite was. Negative nausea, vomiting Differential diagnosis: Lyme disease, cellulitis Patient was seen and evaluated the bedside. Patient did state that he had a tick bite that he noticed yesterday. Patient removed it. This was noted on the right upper thigh. Patient was complaining of some mild joint discomfort as well. Patient not taking anything for pain. Patient does have a area of small eschar with surrounding erythema. Not a true target lesion at this time. Given that the patient states that it was a tick with the erythema and the patient was given doxycycline. Patient was also tested for Lyme's. Patient's blood work did show mild hypokalemia and hypocalcemia. Patient was told of these findings. Patient was given a prescription for doxycycline. Given that true Lyme's arthritis is more of a late manifestation he was treated for 14 days and not for 28 days. Patient was deemed suitable for outpatient follow-up and treatment at this time. Patient was counseled on smoking cessation. Patient was also told that he may apply warm compresses to the area and when he is not he should apply bandage with antibiotic limit. Patient was given strict follow-up, discharge, and return precautions. All questions were answered. Patient was deemed suitable for outpatient follow-up at this time. Patient agreed with the plan of care and was safely discharged home. Medication Reconcilliation Current Medication List: was personally reviewed by me Blood Pressure Screening Patient's blood pressure: Normal blood pressure Impression Primary Impression: Lyme disease Additional Impressions: Tick bite of right lower leg Hypokalemia Hypocalcemia Encounter for smoking cessation counseling Scribe Attestation The scribe's documentation has been prepared under my direction and personally reviewed by me in its entirety. I confirm that the note above accurately reflects all work, treatment, procedures, and medical decision making performed by me. Departure Information Dispostion Home / Self-Care Prescriptions Doxycycline Monohydrate (Monodox) 100 Mg Cap 100 MG PO BID for 14 Days, #28 CAP Prov: Chapito Banegas M.D. 08/05/17 Referrals Erika Sebastian D.O. (PCP) Patient Instructions ED Bite Tick Abx Tx, ED Facts Tick, ED Hypocalcemia, ED Lyme Disease, ED Smoking Cessation, Hypokalemia [place], [facility] Additional Instructions Please return to the emergency department if you have worsening or recurrent symptoms not amenable to at-home treatment. Please call for a follow-up appointment with her primary care physician. Please take your medications as prescribed. If you have other concerns and/or complaints please feel free to also call your primary care physician's office or return the ED for further evaluation, management, and treatment. You may take 600 mg Ibuprofen every 6 hours as needed for pain with food for no more than 2 consecutive days. You may take tylenol 1000 mg every 6 hours as needed for pain. You may take motrin and tylenol separately or at the same time. You may apply warm compresses to the bite area. Apply some antibiotic ointment to the area and bandage. Take your medications as prescribed. If taking an antibiotic consider taking a probiotic and/or eating yogurt, but at the least, please take with food as it can cause upset stomach. Consider smoking cessation. You have been examined and treated today on an emergency basis only. This is not a substitute for, or an effort to provide, complete comprehensive medical care. It is impossible to recognize and treat all injuries or illnesses in a single emergency department visit. It is therefore important that you follow up closely with [facility], your PCP, and/or your specialist(s). Call as soon as possible for an appointment. Thank you for your time and consideration. I look forward to speaking with you again soon. Please don't hesitate to call us if you have any questions. Problem Qualifiers Additional Impressions: Tick bite of right lower leg Encounter type: initial encounter Qualified Codes: S80.861A - Insect bite ( nonvenomous), right lower leg, initial encounter; W57.XXXA - Bitten or stung by nonvenomous insect and other nonvenomous arthropods, initial encounter
[2017-08-05] MEDS ORDERED: LISI-461 PO (23:00)
[2017-08-05] MEDS ORDERED: HYDROXYCUT PO (23:02)
[2017-08-05] MEDS ORDERED: ATOR10TA82 PO (23:02)
[2017-08-05] MEDS ORDERED: PRLSR20 PO (23:02)
[2017-08-05 23:03] LABS: BASO % 0.6 %; BASO ABS # 0.06 K/uL (0-0.2); EOS % 4.6 %; EOS ABS # 0.47 K/uL (0-0.5); HEMATOCRIT 43.8 % (42-52); HEMOGLOBIN 16.3 g/dL (14.0-18.0); IG# 0.02 K/uL (0.00-0.02); LYMPH % 34.5 %; LYMPH ABS # 3.55 K/uL (1.2-3.4); MEAN CELL VOLUME 88.7 fL (80-100); MEAN CORPUSCULAR HGB CONC 37.2 g/dl (32-36); MEAN PLATELET VOLUME 9.8 fL (7.4-10.4); MONO % 13.1 %; MONO ABS # 1.35 K/uL (0.11-0.59); NEUT ABS # 4.85 K/uL (1.4-6.5); PLATELET COUNT 190 K/uL (130-400); RED CELL DISTRIBUTION WIDTH CV 13.1 % (11.5-14.5); RED CELL DISTRIBUTION WIDTH SD 42.1 fL (36.4-46.3)
[2017-08-05 23:22] LABS: CALCIUM 8.4 mg/dl (8.5-10.1); CREATININE 0.85 mg/dl (0.60-1.40); POTASSIUM 3.2 mmol/L (3.5-5.1)
[2017-08-05] MEDS ORDERED: DOXY100C76 PO (23:47)
[2017-08-06 00:09] VITALS: BP 124/82; PULSE 78; O2SAT 98
== END 2017-08-06 00:15 | disposition home or self-care (01) ==
LOC: C.EDB 22:25
DX: A69.20 Lyme disease, unspecified (principal); S80.861A Insect bite (nonvenomous), right lower leg, initial encounter; W57.XXXA Bitten or stung by nonvenomous insect and other nonvenomous arthropods, initial encounter; I10 Essential (primary) hypertension; E87.6 Hypokalemia; E78.5 Hyperlipidemia, unspecified; E83.51 Hypocalcemia; F17.210 Nicotine dependence, cigarettes, uncomplicated; K21.9 Gastro-esophageal reflux disease without esophagitis; E78.00 Pure hypercholesterolemia, unspecified; Z79.899 Other long term (current) drug therapy; Z71.6 Tobacco abuse counseling

== ENCOUNTER 2017-10-19 14:04 | Emergency (ER) | payer OTHER ==
[~2017-10-19] VITALS: Ht 162.6 cm; Wt 90.2 kg
[~2017-10-19 14:04] MED LIST changes: +HYDROXYCUT PO
[2017-10-19 14:10] VITALS: TEMP 36.6; Ht 162.6 cm; Wt 90.2 kg
[2017-10-19] MEDS ORDERED: GUAISYP4 PO (14:23)
[2017-10-19] MEDS ORDERED: PRED10TA PO (14:23)
[2017-10-19] MEDS ORDERED: AZITTAB PO (14:23)
[2017-10-19] MEDS ORDERED: ATOR-22 PO (14:23)
--- NOTE | 2017-10-19 14:26 | EMERGENCY ROOM VISIT NOTE ---
History First contact with patient: 14:15 Chief Complaint: BACK PAIN Stated Complaint: BACK PAIN FROM FALL History of Present Illness The patient is a 32 year old male who presents to the Emergency Room via private vehicle with complaints of "back pain from fall". The patient states that earlier today around 730 or 8 AM he was walking with his kids down steps when he fell landing on his tailbone causing him to slide down about 20 steps on his tailbone. He notes pain since that time in the tailbone region that radiates up into his low back. He denies any worsening neck pain, mid back pain , chest pain, abdominal pain, hip pain or extremity pain. He notes the pain is localized to that of the tailbone and the low back. He rates this pain as a 7/ 10. He states that he is currently taking azithromycin, prednisone and hydrocodone cough syrup for bronchitis of which he began yesterday. He denies any syncope, loss of consciousness, chest pain or shortness of breath as a cause of his fall today. Review of Systems A complete 6-point Review of Systems was discussed with the patient, with pertinent positives and negatives listed in the History of Present Illness. All remaining Review of Systems questions can be considered negative unless otherwise specified. Past Medical/Surgical History Medical Problems: (1) Acid reflux (2) Hypercholesteremia (3) Hypertension Family History Cancer Diabetes mellitus Hypertension Lung disease Social History Smoking Status: Current Every Day Smoker Alcohol Use: occasionally Drug Use: none Marital Status: Housing Status: lives with family Occupation Status: employed Current/Historical Medications Scheduled Atorvastatin (Lipitor), 20 MG PO DAILY Azithromycin (Zithromax Z-David), 1 PKT PO UD Lisinopril (Lisinopril), 10 MG PO DAILY Omeprazole (Prilosec), 20 MG PO DAILY Scheduled PRN Guaifenesin/Codeine (Robitussin-Ac Syrup), 5 ML PO Q4 PRN for Cough Miscellaneous Medications Prednisone Tab (Prednisone), 10 MG PO Physical Exam Vital Signs Date Time Temp Pulse Resp B/P (MAP) Pulse Ox O2 Delivery O2 Flow Rate FiO2 10/19/17 14:10 36.6 94 18 137/82 93 Room Air Physical Exam VITAL SIGNS - Vital signs and nursing notes were reviewed. Stable. GENERAL -32-year-old male appearing his stated age who is in no acute distress. Communicates well with provider and answers questions appropriately. SKIN - Without rashes. No meningeal or petechial rash. The skin overlying the low back is unremarkable. HEAD - NC/AT. EYES - PERRL with EOMI bilaterally. Sclera anicteric. EARS - No deformities of external structures noted on gross examination bilaterally. NOSE - Midline and without cyanosis. No epistaxis or purulent drainage noted. MOUTH/OROPHARYNX - Without perioral cyanosis. NECK - Neck with FROM. Supple to palpation. no lymphadenopathy noted. No nuchal rigidity. LUNGS - Chest wall symmetric without accessory muscle use, intercostals retractions, or central cyanosis. Normal vesicular breath sounds CTA B/L. No wheezes, rales, or rhonchi appreciated. CARDIAC - RRR with S1/S2. No murmur, rubs, or gallops appreciated. ABDOMEN - Abdominal contour normal without pulsations or visible masses. BS normoactive all four quadrants. No tenderness, palpable masses, hepatosplenomegaly, or ascites noted. EXTREMITIES - No clubbing or peripheral cyanosis. No pretibial edema present.+5/ 5 strength noted in UE/LE bilaterally. Patient is able to axially load. MUSCULOSKELETAL: There is minimal tenderness to that of the sacrum, coccyx and inferior lumbar paraspinous musculature and spinous process region. No other tenderness to palpation overlying the back, chest, abdomen or pelvis region. Extremities are unremarkable. NEUROLOGIC - Cranial nerves II through XII grossly intact. Sensory intact to light touch throughout. PSYCH - A&O, and cooperates fully with examiner. Pt is very pleasant and interacts well with examiner. Medical Decision & Procedures ER Provider Diagnostic Interpretation: L-SPINE MIN 4 VIEWS ROUTINE, SACRUM COCCYX MIN 2 VIEWS CLINICAL HISTORY: Fall down steps on tailbone, Low back pain and tailbone pain COMPARISON STUDY: Thoracic spine 05/20/2018. Lumbar spine 12/09/2009. FINDINGS: Mild disc space are at L5-S1, unchanged. The remaining disc spaces are relatively preserved. Small endplate osteophytes seen at L3 and L4. No fractures identified within the lumbar spine, sacrum, or coccyx. Presacral soft tissues are intact. No subluxation within the lumbar spine. IMPRESSION: No fractures within the lumbar spine, sacrum, or coccyx. Electronically signed by: Ravindra Major M.D. 10/19/2017 2:51 PM Dictated Date/Time: 10/19/2017 2:47 PM Medical Decision Patient was seen and evaluated as above in room D9. Review was performed of nursing notes and vital signs. After obtaining a thorough history and physical examination the above work up was performed. He is tender overlying the coccyx region as well as inferior lumbar region. He is able to axially load. He declined pain medication. He is nontoxic on exam. X-rays were obtained. No acute fracture dislocation. This was verified by the radiologist. Results as above. I believe he is stable for outpatient management. He is to utilize over -the-counter pain medication and follow with the family doctor. The patient was educated upon management, had questions answered prior to discharge, and was discharged home in good condition. I suspect is likely experiencing contusion. In the evaluation and treatment of this patient the following differential diagnoses were entertained: Fracture, dislocation, subluxation, strain, among others. Impression Primary Impression: Fall down steps Additional Impressions: Tail bone pain Low back pain Departure Information Dispostion Home / Self-Care Condition GOOD Referrals Erika Sebastian D.O. (PCP) Patient Instructions My [facility] Additional Instructions You have been treated in the Emergency Department for Back Pain. For pain control, you can use the following [id number] medicines: - Regular strength (325mg/tab) Tylenol (acetaminophen) 2 tabs every 4-6 hours as needed. Do not exceed 12 tablets in a 24 hour period. Avoid taking more than 3 grams (3000 mg) of Tylenol per day. This includes any other sources of acetaminophen you may take on a regular basis. - Regular strength (200 mg/tab) Advil (ibuprofen) 1-2 tabs every 4-6 hours as needed. Do not exceed a dose of 3200 mg per day. If this is an acute injury, ice can be applied to the area of pain for the first 3 days to help decrease pain and inflammation. After the first 3 days, a heating pad can be used over the area for continued soothing relief. You should schedule a follow-up appointment in 2-3 days with your Primary Care Provider for further evaluation and treatment of your back pain. Return to the Emergency Department if your current symptoms worsen despite treatment course outlined above, or if you develop any of the following symptoms : intractable pain despite aforementioned treatment course, loss of control of your bowel or bladder, numbness or tingling in your groin, or development of a fever. Problem Qualifiers
--- NOTE | 2017-10-19 14:52 | DIAGNOSTIC IMAGING REPORT ---
L-SPINE MIN 4 VIEWS ROUTINE, SACRUM COCCYX MIN 2 VIEWS CLINICAL HISTORY: Fall down steps on tailbone, Low back pain and tailbone pain COMPARISON STUDY: Thoracic spine 05/20/2018. Lumbar spine 12/09/2009. FINDINGS: Mild disc space are at L5-S1, unchanged. The remaining disc spaces are relatively preserved. Small endplate osteophytes seen at L3 and L4. No fractures identified within the lumbar spine, sacrum, or coccyx. Presacral soft tissues are intact. No subluxation within the lumbar spine. IMPRESSION: No fractures within the lumbar spine, sacrum, or coccyx. Electronically signed by: Ravindra Major M.D. 10/19/2017 2:51 PM Dictated Date/Time: 10/19/2017 2:47 PM
[2017-10-19 15:22] VITALS: BP 131/76; PULSE 77; O2SAT 98
== END 2017-10-19 15:23 | disposition home or self-care (01) ==
LOC: C.EDB 14:07 → C.EDD 15:23
DX: M54.5 Low back pain (principal); M53.3 Sacrococcygeal disorders, not elsewhere classified; W10.9XXA Fall (on) (from) unspecified stairs and steps, initial encounter; E78.00 Pure hypercholesterolemia, unspecified; I10 Essential (primary) hypertension; F17.200 Nicotine dependence, unspecified, uncomplicated

== ENCOUNTER 2023-10-07 13:15 | Inpatient (IN) ==
[2023-10-07] MEDS: TICAGRELOR 90 MG TAB ONE (13:27)
--- NOTE | 2023-10-07 13:38 | Emergency Department Note ---
Impression & Plan Acute TN, inferior wall, Acute TN, true posterior wall, Chest pain ED Provider Note NAME: ERIN MORAN AGE: 38 SEX: M : 1985 ARRIVES VIA: Ambulance INFORMANT: Patient, EMS ED PROVIDER(S): Nazario Pemberton DO CHIEF COMPLAINT: Chest pain HPI: The patient is a 38-year-old male who presented to the emergency department by ambulance for chest pain. The patient states approximate hour and 20 minutes ago he was at rest when he noticed he was having trouble breathing and shortness of breath as well as chest pain. The patient states that his significant other did call 911. The patient was evaluated by the ambulance. I did receive a prehospital notification about the patient. The patient was found to have an abnormal EKG. He was treated with aspirin and IV fluids prior to arrival. After the medic command call was over and the heart alert was called the patient did receive a dose of push dose epinephrine for ongoing hypotension. At this time the patient states his pain is mildly improved but he still rates it a 4-5 out of 10. The patient does not have a history of coronary artery disease but he does have a history of hypertension high cholesterol diabetes and tobacco use. ROS: See above HPI for pertinent positives & negatives. A total of 10 systems reviewed and were otherwise negative. PAST MEDICAL HISTORY: See Below PAST SURGICAL HISTORY: See Below FAMILY HISTORY: See Below SOCIAL HISTORY: See Below HOME MEDICATIONS: See Below ALLERGIES: See Below VITALS: See Below PHYSICAL EXAMINATION: GENERAL: The patient is awake and alert. The patient is somewhat anxious appearing. EYES: The conjunctivae are clear. The pupils are round and reactive. EARS, NOSE, MOUTH AND THROAT: The nose is without any evidence of any deformity. NECK: The neck is nontender and supple. RESPIRATORY: Normal respiratory effort is noted there is no evidence of wheezing rhonchi or rales CARDIOVASCULAR: Regular rate and rhythm noted there no murmurs rubs or gallops normal S1 normal S2. GASTROINTESTINAL: The abdomen is soft. Abdomen is nontender. MUSCULOSKELETAL/EXTREMITIES: There is no evidence of gross deformity full range of motion is noted in the hips and shoulders. SKIN: There is no significant pedal edema. Pulses are symmetric in both wrist. NEUROLOGIC: Patient is awake alert and oriented x3 MEDICAL DECISION MAKING: The patient is a 38-year-old male who presented to the emergency department for an evaluation of chest pain. The patient was made a heart alert prior to arrival after I received a prehospital notification about the patient. His initial EKG appeared to be consistent with an inferior wall TN with reciprocal changes. Subsequent EKGs do appear to be consistent with posterior wall extension. I discussed the patient's EKG with him. The patient was evaluated by the access services librarian at the bedside. He was felt to be a good candidate for cardiac catheterization. The patient was agreeable this and signed consent. The patient was treated with aspirin prior to arrival. He also received a fluid bolus as well as push dose epinephrine prior to arrival. The patient received Brilinta in the emergency department as well as heparin. The patient's pain was slightly improved on my reevaluation. I did discuss the patient's condition with his as well. She was taken directly to the cardiac Director Case Management waiting room. Triage Nursing notes reviewed. Prior medical records reviewed Vital Signs: reviewed and remarkable for no significant abnormalities Differential diagnosis: Cardiac ischemia, aortic dissection, pulmonary embolism, pneumothorax, pneumonia, pericarditis, myocarditis, esophageal rupture, GERD, cholecystitis, pancreatitis, musculoskeletal, as well as other pathologies. ER treatment provided: See below Diagnostics interpreted by me: ECG: EKG was obtained in the emergency department. My interpretation is normal sinus rhythm at 85 bpm. There is no ectopy. There is ST segment elevation noted in the inferior leads with reciprocal changes noted in the high lateral anterior and apical leads. This appears to be consistent with acute inferior posterior wall myocardial infarction. This was compared to a tracing from December 07, 2020. The ST segment abnormalities are new compared to the previous tracing. Prehospital EKG was reviewed. My interpretation is normal sinus rhythm at 84 bpm. There is no ectopy. Acute ST segment elevations were noted in the inferior leads. Reciprocal changes were noted in the high lateral and anterior leads. This appears to be consistent with acute inferior wall TN with possible posterior wall extension. The posterior wall changes are increased compared to the tracing obtained in the emergency department. Cardiac Monitoring: An order was placed for continuous cardiac monitoring. The monitor shows a rate of 89 bpm with sinus rhythm. Laboratory studies: As stated above and show below. Imaging studies: See below. Consultation(s): I discussed this case with Dr. Felipe who is on for cardiac catheterization. He did evaluate the patient in the emergency department. I discussed this case with N[facility] ED COURSE: Procedures: none Critical Care: I have personally spent greater than 35 minutes of critical care time in the direct management of this patient. This includes bedside care, interpretation of diagnostic studies, and testing, discussion with consultants, patient, and family members, and other required patient management activities. This 35 minutes is in excess of all separately billable procedures. Past Med/Surg History Medical History Diabetes Acid reflux Hypercholesteremia Hypertension Surgical History No pertinent past surgical history Social History Smoking Status: Current every day smoker Tobacco Type: Cigarettes packs per day: 2.5; Preferred Language: Moldovan Feels Safe at Home: Yes Allergies Allergies Allergy/AdvReac Type Severity Reaction Status Date / Time No Known Allergies Allergy Verified 06/21/23 23:31 Home Meds Home Medications Medication Instructions Recorded Confirmed No Known Home Medications 06/21/23 06/21/23 Results & Data (ED) Vital Signs Vital Signs - 24 hr 10/07/23 13:19 10/07/23 13:26 Temperature 36.8 C Temperature Source Oral Pulse Rate 86 89 Respiratory Rate 18 Respiratory Effort / Characteristics Non-Labored Spontaneous Respiratory Depth Normal Blood Pressure 145/110 H Blood Pressure Mean 121 Pulse Oximetry 99 Oxygen Delivery Method Nasal Cannula Oxygen Flow Rate 2 Sepsis Recent Fever Within 48 Hours No Sepsis New/Unexplained Change in Mental Status N/A Sepsis Action Taken by Nursing No Action Required Home Medications Current Medication List: was personally reviewed by hi Laboratory Data Attestation: I reviewed the patient's lab results. 10/07/23 13:48 10/07/23 13:48 Lab Results 10/07/23 10/07/23 Range/Units 13:48 13:49 WBC 12.35 H (4.8-10.8) K/ul RBC 5.11 (4.70-6.10) M/uL Hgb 15.8 (14.0-18.0) g/dl Hct 43.5 (42.0-52.0) % MCV 85.1 (80.0-100.0) fL MCH 30.9 (25.0-34.0) pg MCHC 36.3 H (32.0-36.0) g/dL RDW Std Deviation 37.6 (36.4-46.3) fL RDW Coeff of Kylee 12.1 (11.5-14.5) % Plt Count 244 (130-400) K/uL MPV 10.5 (9.4-12.4) fL Immature Gran % (Auto) 0.4 % Neut % (Auto) 60.7 % Lymph % (Auto) 26.2 % [place] % (Auto) 9.0 % Eos % (Auto) 2.8 % Baso % (Auto) 0.9 % Neut # (Auto) 7.51 H (1.40-6.50) K/uL Lymph # (Auto) 3.23 (1.20-3.40) K/uL [place] # (Auto) 1.11 H (0.11-0.59) K/uL Eos # (Auto) 0.34 (0.00-0.50) K/uL Baso # (Auto) 0.11 (0.00-0.20) K/uL Immature Gran # (Auto) 0.05 (0.01-0.20) K/uL Activ Coag Time Kaolin 190 H (94-140) SECONDS Sodium 137 (136-145) mmol/L Potassium 3.4 L (3.5-5.1) mmol/L Chloride 104 (98-107) mmol/L Carbon Dioxide 21 (21-32) mmol/L Anion Gap 12 H (3-11) BUN 15 (6-23) mg/dl Creatinine 1.01 (0.6-1.4) mg/dl Est Cr Clr Drug Dosing 116.1 ml/min Est GFR ( Amer) 107.3 ml/min Est GFR (Non-Af Amer) 92.6 ml/min BUN/Creatinine Ratio 14.9 (10-20) Glucose 196 H (70-99(Fasting)) mg/dl Calcium 9.0 (8.6-10.3) mg/dl Total Bilirubin 0.5 (0.2-1.0) mg/dl AST 35 (13-39) U/L ALT 59 H (7-52) U/L Alkaline Phosphatase 54 (34-104) U/L Total Protein 6.9 (6.0-8.3) gm/dl Albumin 4.1 (3.4-5.0) gm/dl Globulin 2.8 (2.5-4.0) gm/dl Albumin/Globulin Ratio 1.5 (0.9-2) Lipase 140 H (11-82) U/L Administered Medications Discontinued Medications Atropine Sulfate (Atropine Sulfate 0.1 Mg/Ml 10ml Syr) Confirm Administered Dose 1 mg IV .STK-MED ONE Stop: 10/07/23 13:38 Last Admin: 10/07/23 14:26 Dose: Not Given Documented By: [facility] Diphenhydramine HCl (Diphenhydramine 50 Mg/Ml Vial) Confirm Administered Dose 50 mg .ROUTE .STK-MED ONE Stop: 10/07/23 14:01 Last Admin: 10/07/23 14:25 Dose: 50 mg Documented By: [facility] Fentanyl Citrate (Fentanyl Citrate Pf 100 Mcg/2 Ml Vial) Confirm Administered Dose 100 mcg .ROUTE .STK-MED ONE Stop: 10/07/23 13:13 Last Admin: 10/07/23 14:24 Dose: 100 mcg Documented By: [facility] Fentanyl Citrate (Fentanyl Citrate Pf 100 Mcg/2 Ml Vial) Confirm Administered Dose 100 mcg .ROUTE .STK-MED ONE Stop: 10/07/23 14:11 Last Increment: 10/07/23 14:30 Dose: 50 mcg Documented By: [facility] Heparin Sodium (Porcine) (Heparin (Porcine) 1000 Unit/Ml 10 Ml (Director Case Management Use Only)) Confirm Administered Dose 10,000 units .ROUTE .STK-MED ONE Stop: 10/07/23 13:13 Last Admin: 10/07/23 14:30 Dose: 10,000 units Documented By: [facility] Heparin Sodium (Porcine) (Heparin (Porcine) 1000 Unit/Ml 10 Ml (Director Case Management Use Only)) Confirm Administered Dose 10,000 units .ROUTE .STK-MED ONE Stop: 10/07/23 14:28 Last Admin: 10/07/23 14:30 Dose: 4,000 units Documented By: [facility] Heparin Sodium/Sodium Chloride (Heparin In Nss Infusion 1000 Unit/500 Ml (2 U/Ml) Bag) Confirm Administered Dose 3,000 units IV .STK-MED ONE Stop: 10/07/23 13:13 Last Admin: 10/07/23 14:24 Dose: 3,000 units Documented By: [facility] Ioversol (Optiray 350) Confirm Administered Dose 1 ml .ROUTE .STK-MED ONE Stop: 10/07/23 13:13 Last Admin: 10/07/23 14:29 Dose: 180 ml Documented By: [facility] Midazolam HCl (Midazolam Hcl 1 Mg/Ml 2ml Vial) Confirm Administered Dose 2 mg .ROUTE .STK-MED ONE Stop: 10/07/23 13:13 Last Admin: 10/07/23 14:25 Dose: 2 mg Documented By: [facility] Midazolam HCl (Midazolam Hcl 1 Mg/Ml 2ml Vial) Confirm Administered Dose 2 mg .ROUTE .STK-MED ONE Stop: 10/07/23 13:53 Last Admin: 10/07/23 14:25 Dose: 2 mg Documented By: [facility] Midazolam HCl (Midazolam Hcl 1 Mg/Ml 2ml Vial) Confirm Administered Dose 2 mg .ROUTE .STK-MED ONE Stop: 10/07/23 14:10 Last Admin: 10/07/23 14:25 Dose: 2 mg Documented By: [facility] Nicardipine HCl (Nicardipine Hcl Inj 2.5 Mg/Ml 10 Ml Amp) Confirm Administered Dose 25 mg .ROUTE .STK-MED ONE Stop: 10/07/23 13:13 Last Admin: 10/07/23 14:25 Dose: 25 mg Documented By: [facility] Nitroglycerin/Dextrose (Nitroglycerin/D5w 100mcg/Ml 20ml Syr) Confirm Administered Dose 2,000 mcg .ROUTE .STK-MED ONE Stop: 10/07/23 13:13 Last Admin: 10/07/23 14:25 Dose: 2,000 mcg Documented By: [facility] Ondansetron HCl (Ondansetron Inj 2 Mg/Ml 2 Ml Vial) Confirm Administered Dose 4 mg .ROUTE .STK-MED ONE Stop: 10/07/23 13:57 Last Admin: 10/07/23 14:25 Dose: 4 mg Documented By: [facility] Ticagrelor (Ticagrelor 90 Mg Tab) Confirm Administered Dose 180 mg .ROUTE .STK- MED ONE Stop: 10/07/23 13:16 Last Admin: 10/07/23 13:27 Dose: 180 mg Documented By: [facility] Discharge Plan Visit Data Chief Complaint: Heart Alert Stated Complaint: CHEST PAIN, HEART ALERT ED Provider: Nazario Pemberton Discharge Problem: Acute TN, inferior wall, Acute TN, true posterior wall, Chest pain Patient Disposition: Being Evaluated by Hospitalist Discharge Instructions Interventions: ED Discharge Assessment Last Done: 10/07/23 13:28 Discharge Problem: Chest pain Qualifiers: Chest pain type: chest pain due to myocardial ischemia Ischemic chest pain type: unspecified angina pectoris type Qualified Code(s): I25.9 - Chronic ischemic heart disease, unspecified
[2023-10-07 14:11] LABS: Basophils # (auto) 0.11 K/uL (0.00-0.20); Basophils % (auto) 0.9 %; Eosinophils # (auto) 0.34 K/uL (0.00-0.50); Eosinophils % (auto) 2.8 %; Hematocrit (blood only) 43.5 % (42.0-52.0); Hemoglobin 15.8 g/dl (14.0-18.0); Immature Granulocytes # (auto) 0.05 K/uL (0.01-0.20); Immature Granulocytes % (auto) 0.4 %; Lymphocytes # (auto) 3.23 K/uL (1.20-3.40); Lymphocytes % (auto) 26.2 %; Mean Corpuscular Hemoglobin 30.9 pg (25.0-34.0); Mean Corpuscular Hgb Conc 36.3 g/dL (32.0-36.0); Mean Corpuscular Volume 85.1 fL (80.0-100.0); Mean Platelet Volume 10.5 fL (9.4-12.4); Monocytes # (auto) 1.11 K/uL (0.11-0.59); Neutrophils # (auto) 7.51 K/uL (1.40-6.50); Neutrophils % (auto) 60.7 %; Platelet Count 244 K/uL (130-400); RDW Coefficient of Variation 12.1 % (11.5-14.5); RDW Standard Deviation 37.6 fL (36.4-46.3); Red Blood Count 5.11 M/uL (4.70-6.10); White Blood Count 12.35 K/ul (4.8-10.8)
[2023-10-07] MEDS: fentaNYL citrate PF 100 MCG/2 ML VIAL ONE ×2 (14:24→14:30)
[2023-10-07] MEDS: niCARdipine HCL INJ 2.5 MG/ML 10 ML AMP ONE (14:25)
[2023-10-07] MEDS: diphenhydrAMINE 50 MG/ML VIAL ONE (14:25)
[2023-10-07] MEDS: ONDANSETRON INJ 2 MG/ML 2 ML VIAL ONE (14:25)
[2023-10-07] MEDS: NITROGLYCERIN/D5W 100MCG/ML 20ML SYR ONE (14:25)
[2023-10-07] MEDS: MIDAZOLAM HCL 1 MG/ML 2ML VIAL ONE ×3 (14:25)
[2023-10-07] MEDS: ATROPINE SULFATE 0.1 MG/ML 10ML SYR IV ONE (14:26)
[2023-10-07 14:29] LABS: Albumin Globulin Ratio 1.5 (0.9-2); Albumin Level 4.1 gm/dl (3.4-5.0); BUN Creatinine Ratio 14.9 (10-20); Bilirubin,Total 0.5 mg/dl (0.2-1.0); Creatinine Clr Calc Pharmacy 116.1 ml/min; Est GFR (African American) 107.3 ml/min; Est GFR (Non-African American) 92.6 ml/min; Globulin 2.8 gm/dl (2.5-4.0); Potassium 3.4 mmol/L (3.5-5.1); Total Protein 6.9 gm/dl (6.0-8.3)
[2023-10-07] MEDS: OPTIRAY 350 ONE (14:29)
[2023-10-07] MEDS: HEPARIN (PORCINE) 1000 UNIT/ML 10 ML (CATH LAB USE ONLY) ONE ×3 (14:30→14:57)
[2023-10-07 14:35] LABS: Troponin I High Sensitivity 11.1 pg/ml (0-20)
[2023-10-07 14:38] LABS: Partial Thromboplastin Ratio 2.7; Partial Thromboplastin Time 75 Seconds (21-31); Prothrombin Time 11.2 Seconds (9.0-12.0)
[2023-10-07] MEDS ORDERED: EPTIFIBATIDE BOLUS/DRIP IV STA (14:39)
[2023-10-07] MEDS ORDERED: STAT IV Infusion **Titration per Protocol STA (14:39)
--- NOTE | 2023-10-07 14:42 | Pre Anesthesia Assessment ---
Date of Service October 07, 2023 Pre Sedation Assessment Vital Signs Temp Pulse Resp BP Pulse Ox O2 Del Method O2 Flow Rate 10/07/23 13:26 89 10/07/23 13:19 36.8 C 86 18 145/110 H 99 Nasal Cannula 2 Cardiovascular RRR, no murmur, no edema Respiratory normal respiratory effort, lungs clear to auscultation Pre-Sedation Airway Assessment Smoking Status: Current every day smoker mallampati 3 ASA 4 Notes The planned sedation has been discussed with the patient. Informed Consent was obtained. I have identified the patient, determined the appropriateness of sedation and have assessed the patient immediately prior to the procedure. All medicine(s) and interventions are by my order.
[2023-10-07] MEDS: EPTIFIBATIDE 0.75 MG/ML 75MG VIAL (CATH LAB USE ONLY) IV ONE (14:57)
[2023-10-07] MEDS: EPTIFIBATIDE 2 MG/ML 10 ML VIAL (CATH LAB USE ONLY) IV ONE (14:57)
[2023-10-07] MEDS: HEPARIN 25000 UNIT/500 ML D5W IV ONE (14:58)
--- NOTE | 2023-10-07 15:11 | Post Anesthesia Assessment ---
Date of Service October 07, 2023 Post Sedation Assessment Vital Signs Temp Pulse Pulse Resp BP BP Pulse Ox 10/07/23 15:00 36.8 C 90 18 145/96 H 100 10/07/23 14:45 36.8 C 80 18 136/80 98 10/07/23 13:26 89 10/07/23 13:19 36.8 C 86 18 145/110 H 99 O2 Del Method O2 Flow Rate 10/07/23 15:00 Room Air 10/07/23 14:45 Room Air 10/07/23 13:26 10/07/23 13:19 Nasal Cannula 2 Recovery Score Activity: Moves 4 extremities Respiration: Deep Breath/Cough Circulation: +/-20% PreAnes Value Consciousness: Fully Awake Oxygen Saturation: > 92% On Room Air Post Anesthesia Score: 10 Discharge Sedation Level of Care: Fast Track Phase II Post Sedation Plan On clinical assessment, the patient appears to have tolerated the sedation without complications. Patient is recovering as anticipated. Patient will continue to be monitored by nursing and may be discharged when sedation discharge criteria are met per below protocol. Upon Completions of procedure up to 15 minutes continue every 5 minute vital signs and the P.A.R. score; then discharge to a Phase I or Fast Track to Phase II per the following guidelines: * Discharge Patient to appropriate Phase II area if PAR is 8 or greater or return to pre- procedure baseline. The post - procedure orders will be as directed. * If PAR score is less than 8 or not return to pre-procedure baseline then patient will follow Phase I monitoring till PAR is reached for Phase II. The Phase I may be done in procedure room or may call to secure a Phase I area. * If naloxone or flumazenil are used for reversal, hold in Phase I for continued monitoring from when last reversal dose was given for a minimum of 60 minutes or longer pending the nurse and/or physician discretion of patient condition before discharge to Phase II. Please call the Sedation Physician to re-evaluate and complete post-note for discharge to Phase II area. Do NOT discharge from procedure sedation or Phase 1 until post- sedation evaluation note is complete by procedure /sedation MD Sedation Discharge Instructions to be given to the patient at discharge to home. [facility] Procedure Codes (Charges) Indication for Procedure Indication for procedure: INFERIOR STEMI Sedation/Anesthesia Procedure 1: Sedation/Anesthesia: 83075 Mod Sedation by the same physician;Init15 Min Child Age 5 & Up (initial 15 min, start 1340) Total Sedation Time (minutes): 54 Procedure 2: Sedation/Anesthesia: 28897 Mod Sedation by the same physician; Ea [id number] Minutes (additional 39 min, end 1434) Total Sedation Time (minutes): 54
--- NOTE | 2023-10-07 15:14 | Post Anesthesia Assessment ---
Date of Service October 07, 2023 Post Sedation Assessment Vital Signs Temp Pulse Pulse Resp BP BP Pulse Ox 10/07/23 15:00 36.8 C 90 18 145/96 H 100 10/07/23 14:45 36.8 C 80 18 136/80 98 10/07/23 13:26 89 10/07/23 13:19 36.8 C 86 18 145/110 H 99 O2 Del Method O2 Flow Rate 10/07/23 15:00 Room Air 10/07/23 14:45 Room Air 10/07/23 13:26 10/07/23 13:19 Nasal Cannula 2 Recovery Score Activity: Moves 4 extremities Respiration: Deep Breath/Cough Circulation: +/-20% PreAnes Value Consciousness: Fully Awake Oxygen Saturation: > 92% On Room Air Post Anesthesia Score: 10 Discharge Sedation Level of Care: Fast Track Phase II Post Sedation Plan On clinical assessment, the patient appears to have tolerated the sedation without complications. Patient is recovering as anticipated. Patient will continue to be monitored by nursing and may be discharged when sedation discharge criteria are met per below protocol. Upon Completions of procedure up to 15 minutes continue every 5 minute vital signs and the P.A.R. score; then discharge to a Phase I or Fast Track to Phase II per the following guidelines: * Discharge Patient to appropriate Phase II area if PAR is 8 or greater or return to pre- procedure baseline. The post - procedure orders will be as directed. * If PAR score is less than 8 or not return to pre-procedure baseline then patient will follow Phase I monitoring till PAR is reached for Phase II. The Phase I may be done in procedure room or may call to secure a Phase I area. * If naloxone or flumazenil are used for reversal, hold in Phase I for continued monitoring from when last reversal dose was given for a minimum of 60 minutes or longer pending the nurse and/or physician discretion of patient condition before discharge to Phase II. Please call the Sedation Physician to re-evaluate and complete post-note for discharge to Phase II area. Do NOT discharge from procedure sedation or Phase 1 until post- sedation evaluation note is complete by procedure /sedation MD Sedation Discharge Instructions to be given to the patient at discharge to home.
[2023-10-07] MEDS ORDERED: ATROPINE SULFATE 0.1 MG/ML 10ML SYR IV PRN (15:15)
--- NOTE | 2023-10-07 15:25 | Critical Care Consultation ---
Date of Consultation October 07, 2023 Assessment & Plan (1) Acute PR, true posterior wall: (2) Acute PR, inferior wall: (3) Chest pain: (4) Hypertension: (5) Tobacco abuse: (6) Obstructive sleep apnea, adult: Plan 38-year-old male status post left heart cath which revealed RCA occlusion. Stenting was unsuccessful. Patient currently on Integrilin infusion. Plan per cardiology is to reattempt left heart catheterization with stenting in the next 24 to 48 hours depending on clinical picture. Completed Integrilin infusion. Continue dual antiplatelet therapy. Initiate beta-blockade when hemodynamics allow. Initiate high-dose statin. Initiate DAVID inhibitor. Check lipids and A1c. Monitor on telemetry. Continue frequent neurovascular checks. Follow-up echo results. Trend troponins till peak. IV fluids per cardiology. Patient also with elevated BPs. Will give an metoprolol dose of 25 mg now. Smoking cessation strongly encouraged to the patient is a 2.5 pack/day smoker since this teenage years. Will provide the patient with a nicotine patch to help with nicotine withdrawal. He also has a history of JONAS and is noncompliant with CPAP. Will monitor in the ICU per cardiology recommendations over the next 24 to 48 hours. Thank you for the consult. Please call questions History of Present Illness Reason for Consultation: STEMI status post left heart cath Attending Physician: Stanley Felipe MD, PhD History of Present Illness 38-year-old male with a history of significant tobacco abuse, hypertension, hyperlipidemia and acid reflux who presented to the ER via ambulance today. Around noon he noticed shortness of breath and substernal chest pain. Patient was hypotensive on arrival then reduced a bolus of epinephrine. Hypotension and pain have resolved. He was evaluated in the ER and received aspirin and Brilinta. EKG was concerning for inferior and posterior wall PR. Left heart catheterization was performed by news video editor in the cardiac suite. There was difficulty with radial access and ultimately femoral access was utilized. He was found to have an occluded RCA. Stent was unable to be a past and the procedure was aborted. Patient was started on Integrilin infusion. Plan is for recatheterization in 24 to 48 hours per cardiology. Patient will be monitored in the ICU for hemodynamic and telemetry issues. Allergies Allergy/AdvReac Type Severity Reaction Status Date / Time No Known Allergies Allergy Verified 06/21/23 23:31 Home Medications Medication Instructions Recorded Confirmed Type albuterol sulfate 2.5 mg NEB DIRECTED 10/07/23 10/07/23 History atorvastatin 20 mg tablet 20 mg PO DAILY 10/07/23 10/07/23 History lisinopril 10 12.5 tab PO DAILY 10/07/23 10/07/23 History mg-hydrochlorothiazide 12.5 mg tablet metformin 1,000 mg tablet 1,000 mg PO BIDM 10/07/23 10/07/23 History omeprazole 20 mg capsule,delayed 20 mg PO DAILY 10/07/23 10/07/23 History release varenicline 0.5 mg tablet 0.5 mg PO BID 10/07/23 10/07/23 History Patient History Medical History (Updated 10/07/23 @ 16:44 by Baldomero Steele MD) Obstructive sleep apnea, adult Tobacco abuse Diabetes Acid reflux Hypercholesteremia Hypertension Surgical History No pertinent past surgical history Social History Smoking Status: Current every day smoker Tobacco Type: Cigarettes packs per day: 2.5; Cigarettes Per Day: 2 ppd; Do You Dip or Chew Tobacco: No; Hx Alcohol Use: No Hx Substance Use: No Preferred Language: Czech Communication Ability: Effective Strategic Planning Analyst Required: No Beliefs That Will Affect Care: None Current Living Situation: Spouse Feels Safe at Home: Yes Assistive Devices: CPAP and Glasses Review of Systems Review of Systems: All systems reviewed & are unremarkable except as noted in HPI & below Physical Exam Physical Exam: Constitutional: Patient appears to be of their stated age. Patient is in no apparent distress. Patient is well-developed. Eyes: Pupils are equal round and reactive to light. Conjunctivae are normal. Anicteric sclera. Ears nose, mouth and throat: Mallampati class []. Normal posterior oropharynx. Uvula is midline. Neck: Trachea is midline. Visual inspection is normal. Respiratory: Clear to auscultation bilaterally. No use of accessory muscles. No significant clubbing noted. Cardiovascular: Regular rate and rhythm. No murmurs. No edema. Gastrointestinal: Normal bowel sounds, soft, nontender and nondistended. No hep atosplenomegaly noted. Musculoskeletal: No cyanosis. Patient is able to move all extremities. Strength is 5 out of 5 in the upper and lower extremities. Skin: No rashes, warm dry and intact. Neurologic: No obvious focal neurological deficits seen. Psychiatric: Alert and oriented x3 with a euthymic affect. Results & Data Results & Data Vital Signs (Past 12 Hours) Vital Signs Temp Pulse Pulse Resp BP BP Pulse Ox 10/07/23 15:00 36.8 C 90 18 145/96 H 100 10/07/23 14:45 36.8 C 80 18 136/80 98 10/07/23 13:26 89 10/07/23 13:19 36.8 C 86 18 145/110 H 99 O2 Del Method O2 Flow Rate 10/07/23 15:00 Room Air 10/07/23 14:45 Room Air 10/07/23 13:26 10/07/23 13:19 Nasal Cannula 2 Coding Level of Care Code 63997 IN/OBS CONSULT LVL 4,60M Diagnoses Acute PR, true posterior wall I21.29 Acute PR, inferior wall I21.19 Chest pain I25.9 Chest pain type: chest pain due to myocardial ischemia Ischemic chest pain type: unspecified angina pectoris type Hypertension, unspecified type I10 Hypertension type: unspecified Tobacco abuse Z72.0 Obstructive sleep apnea, adult G47.33 (3) Chest pain Chest pain type: chest pain due to myocardial ischemia Ischemic chest pain type: unspecified angina pectoris type Qualified Code(s): I25.9 - Chronic ischemic heart disease, unspecified (4) Hypertension Hypertension type: unspecified Qualified Code(s): I10 - Essential (primary) hypertension
[2023-10-07] MEDS ORDERED: GLUCAGON FOR INJ 1 MG VIAL SQ PRN (16:05)
[2023-10-07] MEDS ORDERED: PHARMACY GLYCEMIC MGMT CONSULT PRN (16:05)
[2023-10-07] MEDS ORDERED: GLUCOSE 40% GEL 15 GM TUBE PO PRN (16:05)
[2023-10-07] MEDS ORDERED: GLUCOSE 10 TAB/TUBE PO PRN (16:05)
[2023-10-07] MEDS ORDERED: CARBOHYDRATES FOR HYPOGLYCEMIA PO PRN (16:05)
[2023-10-07] MEDS ORDERED: DEXTROSE 50% 50 ML SYRINGE IV PRN (16:05)
--- NOTE | 2023-10-07 16:21 | Cardiology Consultation ---
Date of Consultation October 07, 2023 Assessment & Plan (1) Acute IN, inferior wall: He had a large caliber very tortuous RCA with occlusion of the large posterolateral branch. Some flow established after heparin and wire passage. Mechanically unable to deliver a stent to the lesion where it bifurcated. Reattempts in combination with his movement/coughing or suggestive of dissection at the lesion or lifting of the plaque. In any case, we chose medical management using heparin drip and Integrilin drip. We will initiate guideline directed medical therapy for secondary prevention including low-dose aspirin, high intensity statin therapy, beta-jason, and angiotensin receptor jason. We will clinically reassess him and as long as he has little to no chest pain we will remain conservative in our approach. We also need to obtain an echocardiogram. Consider reattempt here pending evolution of his clinical course versus potential transfer to tertiary center given difficulty and risk of complication of his known lesion. (2) Hypertension: Metoprolol to tartrate 25 mg p.o. twice daily and losartan 25 mg daily. We will titrate for target blood pressure. (3) Hypercholesteremia: Patient is high risk (diabetes and coronary disease). High intensity statin therapy initiated with atorvastatin 40 mg daily. Will check a fasting lipid panel. Plan Patient to remain in the ICU for 24 hours. Will likely run the heparin drip for 48 hours. Integrilin will stop after 12 hours. Follow enzymes and obtain an echocardiogram. Further recommendations pending results and evolution of his clinical course. History of Present Illness Reason for Consultation: Inferior ST elevation IN Attending Physician: Valeria Frias MD History of Present Illness 38-year-old diabetic male with comorbid disease including hypertension and hyper lipidemia presented with acute onset chest pain and shortness of breath. EMS was called and they obtained an EKG in the field suggesting acute inferior ST elevation IN. He was provided nitroglycerin but his blood pressure dropped and they therefore gave him epinephrine. He came to the emergency department apartment where I was asked to see him. At that time he continued with significant chest discomfort, EKG consistent with acute inferior ST elevation IN, and we therefore took him emergently to the cardiac catheterization suite. We performed diagnostic coronary angiography via the right radial artery approach. However, the patient was uncooperative, moved often, was difficult to sedate, and had a chronic cough. We attempted PCI of a very tortuous occluded RCA into the posterolateral branch. We did reestablish some blood flow but we could not deliver any stents to the area. His chest pain resolved with medication and advancement of the guidewire. We decided to attempt femoral access in hopes that we would gain mechanical advantage and be able to deliver stents. This initially seemed to give us better backup but we were unable to deliver balloon or stents to the lesion because of tortuosity and the fact that the vessel affected by the stenosis was distal. The patient continued with coughing and inability to lay still well enough for us to keep equipment in [place] ce. Since he was having no further chest pain we decided to discontinue attempts out of concern for potential devastating complication. He was therefore placed on heparin drip plus Integrilin drip. He had been loaded with Brilinta and aspirin. Patient has not been taking his medications as ordered by his primary care provider. He continues to smoke 2-1/2 packs/day despite the fact that he has diabetes. He has had no syncope, near syncope, orthopnea, PND, racing heartbeat, palpitations, or edema. Unfortunately, I do not have access to his outpatient records so I am not clear on what has been previously attempted or in fact his current medications. At this time he is being transferred to the ICU for further workup and management. Allergies Allergy/AdvReac Type Severity Reaction Status Date / Time No Known Allergies Allergy Verified 06/21/23 23:31 Home Medications Medication Instructions Recorded Confirmed Type No Known Home Medications 06/21/23 06/21/23 History Patient History Medical History Tobacco abuse Diabetes Acid reflux Hypercholesteremia Hypertension Surgical History No pertinent past surgical history Social History Smoking Status: Current every day smoker Tobacco Type: Cigarettes packs per day: 2.5; Preferred Language: Omani Feels Safe at Home: Yes Review of Systems Review of Systems: Negative except as per HPI Physical Exam Constitutional: WD/WN, vitals as above (Morbidly obese middle-age male) Eyes: Extraocular muscles intact. Sclera are anicteric ENMT: [place] is pink moist and intact Neck: No JVD. Thick. Respiratory: Clear to auscultation bilaterally. No wheezing, rhonchi, or rales. Poor air movement. Cardiovascular: Regular rate and rhythm. Distant heart sounds. S4 gallop. Cannot appreciate any murmurs today. Musculoskeletal: no cyanosis or clubbing, extremities motor strength 5/5 Neurologic: Cognition is intact. Speech is fluent. No focal deficits. No tremor. Psychiatric: A+Ox3, euthymic affect Results & Data Vital Signs (Past 12 Hours) Vital Signs Temp Pulse Pulse Resp BP BP Pulse Ox 10/07/23 15:00 36.8 C 90 18 145/96 H 100 10/07/23 14:45 36.8 C 80 18 136/80 98 10/07/23 13:26 89 10/07/23 13:19 36.8 C 86 18 145/110 H 99 O2 Del Method O2 Flow Rate 10/07/23 15:00 Room Air 10/07/23 14:45 Room Air 10/07/23 13:26 10/07/23 13:19 Nasal Cannula 2 PG Care Time/CCT Total # of Minutes Spent Total Time Spent with Patient: Total time spent is greater than 50% in coordination of care (as documented) at patient's floor/unit and/or counseling patient: 60 minutes A total of 60 minutes critical care time was spent in the initial evaluation, review of records, examination, discussion with the patient, discussion with care team in the emergency department, discussion with the Relief Man team, formulation and implementation of a plan of care and all associated documentation. This time is exclusive of the time spent on the procedure. Coding Level of Care Code 74576 CRITICAL CARE 1ST 30-74M Diagnoses Acute IN, inferior wall I21.19 Hypertension I10 Hypercholesteremia E78.00
--- NOTE | 2023-10-07 16:22 | Electrocardiogram Report ---
Test Reason : Blood Pressure : / mmHG Vent. Rate : 085 BPM Atrial Rate : 085 BPM P-R Int : 146 ms QRS Dur : 084 ms QT Int : 340 ms P-R-T Axes : 029 062 107 degrees QTc Int : 404 ms Normal sinus rhythm Acute inferior infarction ACUTE IA / STEMI Abnormal ECG When compared with ECG of 07-DEC-2020 21:37, Acute inferior infarction is now Present ST now depressed in Anterolateral leads Confirmed by Bud Knight ([id number]) on 10/07/2023 4:22:06 PM Referred By: Confirmed By:Bud Knight
[2023-10-07] MEDS: SODIUM CHLORIDE 0.9% 1,000 ML IV SCH (16:43)
[2023-10-07 17:12] LABS: Basophils # (auto) 0.06 K/uL (0.00-0.20); Basophils % (auto) 0.4 %; Eosinophils # (auto) 0.09 K/uL (0.00-0.50); Eosinophils % (auto) 0.7 %; Hematocrit (blood only) 46.6 % (42.0-52.0); Hemoglobin 16.7 g/dl (14.0-18.0); Immature Granulocytes # (auto) 0.07 K/uL (0.01-0.20); Immature Granulocytes % (auto) 0.5 %; Lymphocytes # (auto) 2.23 K/uL (1.20-3.40); Lymphocytes % (auto) 16.4 %; Mean Corpuscular Hemoglobin 30.9 pg (25.0-34.0); Mean Corpuscular Hgb Conc 35.8 g/dL (32.0-36.0); Mean Corpuscular Volume 86.1 fL (80.0-100.0); Mean Platelet Volume 10.1 fL (9.4-12.4); Monocytes # (auto) 0.85 K/uL (0.11-0.59); Monocytes % (auto) 6.2 %; Neutrophils # (auto) 10.32 K/uL (1.40-6.50); Neutrophils % (auto) 75.8 %; Platelet Count 242 K/uL (130-400); RDW Coefficient of Variation 12.2 % (11.5-14.5); RDW Standard Deviation 38.5 fL (36.4-46.3); Red Blood Count 5.41 M/uL (4.70-6.10); White Blood Count 13.62 K/ul (4.8-10.8)
[2023-10-07] MEDS: TICAGRELOR 90 MG TAB PO ONE (17:29)
[2023-10-07] MEDS: HEPARIN SOD (PORCINE) 1000 UNIT/ML ONE (17:29)
[2023-10-07] MEDS: SODIUM CHLORIDE 0.9% 500 ML IV STA (17:29)
[2023-10-07] MEDS: METOPROLOL TARTRATE 25 MG TAB PO STA (17:44)
[2023-10-07] MEDS: INSULIN ASPART PER UNIT CHARGE SC SCH (17:45)
[2023-10-07] MEDS: NICOTINE 21 MG/24 HR TDSY TD SCH (18:01)
--- NOTE | 2023-10-07 18:15 | History & Physical Report ---
Date of Service October 07, 2023 Assessment & Plan (1) Acute OR, inferior wall: Plan: Bennie Cohen is a 38y/o male with PMH of HTN, DM type II, hypercholesteremia, acid reflux, obesity, JONAS and tobacco use disorder [2.5 pack/day] who presented to the ED via EMS for evaluation of chest pain and was found to have an acute inferior ST elevation OR. -Patient was emergently taken to the cardiac catheterization suite, where he was discovered to have an occlusion in the large posterolateral branch of the RCA. Partial flow was established following heparin and wire passage, however, Dr. Felipe was unable to mechanically deliver a stent and the procedure was a borted. -Per cardiology, will reattempt cardiac catheterization w/ stenting in the next 24-48hrs depending on clinical picture. -Continue Integrilin drip, stop after 12hrs per cardiology. Continue heparin drip, stop after 48hrs per cardiology. -Cardiology initiated high-intensity statin, low-dose aspirin, beta-jason and DAVID inhibitor therapy for secondary prevention. -Monitor on telemetry -Trend troponins till peak, F/U echo results -Continue frequent neurovascular checks (2) Acute OR, true posterior wall: (3) Obstructive sleep apnea, adult: Plan: -Hx of noncompliance with CPAP (4) Tobacco abuse: Plan: -Smoking cessation strongly encouraged to the patient. -Provided with nicotine patch to alleviate symptoms of nicotine withdrawal. (5) Diabetes: Plan: -Order ISS, check A1C in AM (6) Hypertension: Plan: -Started on metoprolol tartrate 25mg po BID and losartan 25mg daily, per cardiology. -Titrate for target blood pressure (7) Hypercholesteremia: Plan: -Started on high-intensity statin therapy with atorvastatin 40mg daily, per cardiology. -Check fasting lipid panel in AM. DVT Prophylaxis: IV Heparin Code Status: Full Code PCP: Erika Sebastian, Dispo: Admit to ICU for monitoring Patient seen in collaboration with Dr. Frias. Please see addendum. I spent a total of 75 minutes coordinating, documenting, and providing care for this patient excluding time spent in the performance of separately billed services. This included personally reviewing all current laboratories and imaging studies, medical reconciliation, outpatient chart review and discussion with specialists. Admission and Anticipated Discharge Date Admission Date: October 07, 2023 History of Present Illness Chief Complaint: Chest Pain Primary Care Provider: Erika Sebastian DO Bennie Cohen is a 38y/o male with PMH of HTN, DM type II, hypercholesteremia, acid reflux, obesity, JONAS and tobacco use disorder [2.5 pack/day] who presented to the ED via EMS for evaluation of chest pain. History obtained from the patient, PCP records and prior documentation from current visit. Patient reported SOB and substernal chest pain beginning around noon. Patient's spouse called 911. Patient was found to have an abnormal EKG by EMS. Heart alert was activated at that time. He was then evaluated in the ED, where he was loaded with aspirin and Brilinta. EKG was confirmed to be an acute inferior ST elevation OR by Dr. Felipe in the ED. Patient was seen in the ICU s/p cardiac catheterization. Patient was accompanied by his , Trista. Patient reiterated the events leading up to his arrival in the ED via EMS, which are described above. Patient states that he did not take any of his prescribed home medications this morning before going to work. Patient reports that he left work around 10am this morning [patient works day s hift] d/t feeling sweaty and generally uncomfortable. He continued to not feel well at home. Then, as mentioned above, the substernal chest pain and SOB started around noon. He called his , who had recently left their house to take her mother to an appointment, and instructed her to return back home. His then called 911 from their house when she returned home, as previously outlined, and that led to his arrival at the ED for further evaluation. Patient does report that he consumes approximately 3-4 Monster energy drinks per day, in addition to smoking [as described above]. Patient's states that he was provided with a nicotine patch to help ease the symptoms of nicotine withdrawal. At this time, patient reports no chest pain or SOB. He also denies any GI dysfunction or urinary issues. Patient mentions that he is feeling much better now since being transferred from the cardiac catheterization suite to the ICU. Patient reports that he did consume dinner w/o any complications, such as dysphagia. Allergies Allergy/AdvReac Type Severity Reaction Status Date / Time No Known Allergies Allergy Verified 10/07/23 19:01 Home Medications Medication Instructions Recorded Confirmed Type albuterol sulfate 2.5 mg NEB DIRECTED 10/07/23 10/07/23 History atorvastatin 20 mg tablet 20 mg PO DAILY 10/07/23 10/07/23 History lisinopril 10 12.5 tab PO DAILY 10/07/23 10/07/23 History mg-hydrochlorothiazide 12.5 mg tablet metformin 1,000 mg tablet 1,000 mg PO BIDM 10/07/23 10/07/23 History omeprazole 20 mg capsule,delayed 20 mg PO DAILY 10/07/23 10/07/23 History release varenicline 0.5 mg tablet 0.5 mg PO BID 10/07/23 10/07/23 History Past Med/Surg History Medical History Obstructive sleep apnea, adult Tobacco abuse Diabetes Acid reflux Hypercholesteremia Hypertension Surgical History No pertinent past surgical history Social History Smoking Status: Current every day smoker Tobacco Type: Cigarettes packs per day: 2.5; Cigarettes Per Day: 2 ppd; Do You Dip or Chew Tobacco: No; Hx Alcohol Use: No Hx Substance Use: No Preferred Language: Telugu Communication Ability: Effective Furniture Inspector Required: No Beliefs That Will Affect Care: None Current Living Situation: Spouse Other Information That Helps Us Care for You: No Feels Safe at Home: Yes Safety Concerns: Feels Safe At This Time Assistive Devices: CPAP and Glasses Review of Systems Review of Systems: At least ten systems reviewed and negative, except as noted in the HPI. Physical Exam Physical Exam: General Appearance: WD/WN, vitals as above, NAD, sitting up in bed, pleasant, conversing. Head: Normocephalic, atraumatic Eyes: Normal inspection, PERRL, conjunctivae normal, anicteric sclerae ENT: External ear and nose normal, oropharynx normal Neck: Normal visual inspection, trachea midline. Nontender and supple. Respiratory: Normal respiratory effort, lungs clear to auscultation, no wheeze, rales, rhonchi. No accessory muscle use. Cardiovascular: Regular rate, rhythm, no murmur, normal peripheral pulses, no BLE edema. Vessels: No JVD Chest: Normal inspection of chest Abdomen/GI: Normal bowel sounds, soft, nontender, no hepatosplenomegaly Extremities/Musculoskeletal: Right wrist guard in place, no evidence of bleeding at this radial artery access site. Neurologic: PERRL, EOMI, accommodation nl, no face palsy, no dysarthria, CN's II-XI intact bilaterally and moves all extremities Psychiatric: A+Ox3, euthymic affect Skin: No rashes, normal color, warm/dry Results & Data Results & Data Vital Signs (Past 12 Hours) Vital Signs Temp Pulse Pulse Resp BP BP Pulse Ox 10/07/23 16:30 88 13 158/95 H 98 10/07/23 16:20 102 H 18 178/103 H 96 10/07/23 16:15 90 21 178/103 H 98 10/07/23 16:00 90 14 99 10/07/23 16:00 90 10/07/23 15:45 90 21 97 10/07/23 15:30 90 13 98 10/07/23 15:00 36.8 C 90 18 145/96 H 100 10/07/23 14:45 36.8 C 80 18 136/80 98 10/07/23 13:26 89 10/07/23 13:19 36.8 C 86 18 145/110 H 99 O2 Del Method O2 Flow Rate 10/07/23 16:30 Room Air 10/07/23 16:20 Room Air 10/07/23 16:15 Room Air 10/07/23 16:00 10/07/23 16:00 10/07/23 15:45 10/07/23 15:30 10/07/23 15:00 Room Air 10/07/23 14:45 Room Air 10/07/23 13:26 10/07/23 13:19 Nasal Cannula 2 Laboratory Results Short CBC 10/07/23 10/07/23 Range/Units 13:48 16:52 WBC 12.35 H 13.62 H (4.8-10.8) K/ul Hgb 15.8 16.7 (14.0-18.0) g/dl Hct 43.5 46.6 (42.0-52.0) % Plt Count 244 242 (130-400) K/uL BMP 10/07/23 13:48 Sodium 137 Potassium 3.4 L Chloride 104 Carbon Dioxide 21 BUN 15 Creatinine 1.01 Glucose 196 H Calcium 9.0 Liver Function 10/07/23 Range/Units 13:48 Total Bilirubin 0.5 (0.2-1.0) mg/dl AST 35 (13-39) U/L ALT 59 H (7-52) U/L Alkaline Phosphatase 54 (34-104) U/L Albumin 4.1 (3.4-5.0) gm/dl Medications Administered Sodium Chloride (Nss) 1,000 mls @ 75 mls/hr IV .[id number] [facility] Stop: 11/06/23 15:14 Last Admin: 10/07/23 16:43 Dose: 75 mls/hr Documented By: ROSAMARIA Insulin Aspart (Insulin Aspart Per Unit Charge) 0 units SC ACHS [facility] Stop: 11/06/23 16:59 Last Admin: 10/07/23 17:45 Dose: 5 units Documented By: ROSAMARIA Co-signed By: BLAKE Nicotine (Nicotine 21 Mg/24 Hr Tdsy) 1 patch TD QAM [facility] Stop: 11/06/23 16:29 Last Admin: 10/07/23 18:01 Dose: 1 patch Documented By: ROSAMARIA Discontinued Medications Atropine Sulfate (Atropine Sulfate 0.1 Mg/Ml 10ml Syr) Confirm Administered Dose 1 mg IV .STK-MED ONE Stop: 10/07/23 13:38 Last Admin: 10/07/23 14:26 Dose: Not Given Documented By: [facility] Diphenhydramine HCl (Diphenhydramine 50 Mg/Ml Vial) Confirm Administered Dose 50 mg .ROUTE .STK-MED ONE Stop: 10/07/23 14:01 Last Admin: 10/07/23 14:25 Dose: 50 mg Documented By: [facility] Eptifibatide (Eptifibatide 2 Mg/Ml 10 Ml Vial (Dispatch Coordinator Use Only)) Confirm Ad ministered Dose 60 mg IV .STK-MED ONE Stop: 10/07/23 14:39 Last Admin: 10/07/23 14:57 Dose: 22.6 ml Documented By: [facility] Eptifibatide (Eptifibatide 0.75 Mg/Ml 75mg Vial (Dispatch Coordinator Use Only)) Confirm Administered Dose 75 mg IV .STK-MED ONE Stop: 10/07/23 14:39 Last Admin: 10/07/23 14:57 Dose: 75 mg Documented By: [facility] Fentanyl Citrate (Fentanyl Citrate Pf 100 Mcg/2 Ml Vial) Confirm Administered Dose 100 mcg .ROUTE .STK-MED ONE Stop: 10/07/23 13:13 Last Admin: 10/07/23 14:24 Dose: 100 mcg Documented By: [facility] Fentanyl Citrate (Fentanyl Citrate Pf 100 Mcg/2 Ml Vial) Confirm Administered Dose 100 mcg .ROUTE .STK-MED ONE Stop: 10/07/23 14:11 Last Increment: 10/07/23 14:30 Dose: 50 mcg Documented By: [facility] Heparin Sodium (Porcine) (Heparin (Porcine) 1000 Unit/Ml 10 Ml (Dispatch Coordinator Use Only)) Confirm Administered Dose 10,000 units .ROUTE .STK-MED ONE Stop: 10/07/23 13:13 Last Admin: 10/07/23 14:30 Dose: 10,000 units Documented By: [facility] Heparin Sodium (Porcine) (Heparin Sod (Porcine) 1000 Unit/Ml) Confirm Administered Dose 1,000 units .ROUTE .STK-MED ONE Stop: 10/07/23 13:18 Last Admin: 10/07/23 17:29 Dose: Not Given Documented By: [facility] Heparin Sodium (Porcine) (Heparin (Porcine) 1000 Unit/Ml 10 Ml (Dispatch Coordinator Use Only)) Confirm Administered Dose 10,000 units .ROUTE .STK-MED ONE Stop: 10/07/23 14:28 Last Admin: 10/07/23 14:30 Dose: 4,000 units Documented By: [facility] Heparin Sodium (Porcine) (Heparin (Porcine) 1000 Unit/Ml 10 Ml (Dispatch Coordinator Use Only)) Confirm Administered Dose 10,000 units .ROUTE .STK-MED ONE Stop: 10/07/23 14:51 Last Admin: 10/07/23 14:57 Dose: 5,000 units Documented By: [facility] Heparin Sodium/Dextrose (Heparin 31912 Unit/500 Ml D5w) Confirm Administered Dose 25,000 units IV .STK-MED ONE Stop: 10/07/23 14:31 Last Admin: 10/07/23 14:58 Dose: 1,500 units Documented By: [facility] Co-signed By: AP Heparin Sodium/Sodium Chloride (Heparin In Nss Infusion 1000 Unit/500 Ml (2 U/Ml) Bag) Confirm Administered Dose 3,000 units IV .STK-MED ONE Stop: 10/07/23 13:13 Last Admin: 10/07/23 14:24 Dose: 3,000 units Documented By: ELLEN Sodium Chloride (Nss) 500 mls @ 999 mls/hr IV .Q31M STA Stop: 10/07/23 13:34 Last Admin: 10/07/23 17:29 Dose: Not Given Documented By: ROSAMARIA Ioversol (Optiray 350) Confirm Administered Dose 1 ml .ROUTE .STK-MED ONE Stop: 10/07/23 13:13 Last Admin: 10/07/23 14:29 Dose: 180 ml Documented By: TULIO Metoprolol Tartrate (Metoprolol Tartrate 25 Mg Tab) 25 mg PO NOW STA Stop: 10/07/23 16:44 Last Admin: 10/07/23 17:44 Dose: 25 mg Documented By: ROSAMARIA Midazolam HCl (Midazolam Hcl 1 Mg/Ml 2ml Vial) Confirm Administered Dose 2 mg .ROUTE .STK-MED ONE Stop: 10/07/23 13:13 Last Admin: 10/07/23 14:25 Dose: 2 mg Documented By: ELLEN Midazolam HCl (Midazolam Hcl 1 Mg/Ml 2ml Vial) Confirm Administered Dose 2 mg .ROUTE .STK-MED ONE Stop: 10/07/23 13:53 Last Admin: 10/07/23 14:25 Dose: 2 mg Documented By: ELLEN Midazolam HCl (Midazolam Hcl 1 Mg/Ml 2ml Vial) Confirm Administered Dose 2 mg .ROUTE .STK-MED ONE Stop: 10/07/23 14:10 Last Admin: 10/07/23 14:25 Dose: 2 mg Documented By: ELLEN Nicardipine HCl (Nicardipine Hcl Inj 2.5 Mg/Ml 10 Ml Amp) Confirm Administered Dose 25 mg .ROUTE .STK-MED ONE Stop: 10/07/23 13:13 Last Admin: 10/07/23 14:25 Dose: 25 mg Documented By: ELLEN Nitroglycerin/Dextrose (Nitroglycerin/D5w 100mcg/Ml 20ml Syr) Confirm Administered Dose 2,000 mcg .ROUTE .STK-MED ONE Stop: 10/07/23 13:13 Last Admin: 10/07/23 14:25 Dose: 2,000 mcg Documented By: ELLEN Ondansetron HCl (Ondansetron Inj 2 Mg/Ml 2 Ml Vial) Confirm Administered Dose 4 mg .ROUTE .STK-MED ONE Stop: 10/07/23 13:57 Last Admin: 10/07/23 14:25 Dose: 4 mg Documented By: ELLEN Ticagrelor (Ticagrelor 90 Mg Tab) Confirm Administered Dose 180 mg .ROUTE .STK- MED ONE Stop: 10/07/23 13:16 Last Admin: 10/07/23 13:27 Dose: 180 mg Documented By: CHEO Ticagrelor (Ticagrelor 90 Mg Tab) 180 mg PO ONE ONE Stop: 10/07/23 13:33 Last Admin: 10/07/23 17:29 Dose: Not Given Documented By: NMS Code Status & VTE Plan Code Status FULL CODE Supervising Physician Co-Signing Physician Notes I have seen and discussed the case with the collaborating advanced practitioner. I agree with the above H&P. I have reviewed and confirmed the patients medical history, the findings on physical examination, and the patients diagnosis and treatment plan with Jose R REINA and agree with the information documented. In short, Mr. Cohen is a 38 year old gentleman with history of tobacco use, JONAS, morbid obesity who is admitted for anterior wall OR. Patient is s/p LHC with noted "large caliber very tortuous RCA with occlusion of the large posterolateral branch." The vessel was unable to be stented. Patient feels well and is chest pain free after LHC. Resting comfortably at bedside. GENERAL APPEARANCE: AxOx4, no acute distress. HEENT: NC, AT. MMM. EOMI, clear conjunctiva, oropharynx clear. NECK: Supple without lymphadenopathy. No stiffness or restricted ROM. HEART: Normal rate and regular rhythm, borderline tachycardic LUNGS: CTAB, moving air well. No crackles or wheezes are heard. ABDOMEN: Soft, nontender, nondistended with good bowel sounds heard. BACK: No CVAT, no obvious deformity. EXTREMITIES: Without cyanosis, clubbing or edema. NEUROLOGICAL: Grossly nonfocal. Alert and oriented, moving all 4 extremities. CN not formally tested but appear grossly intact Skin: Warm and dry without any rash. #Acute OR, inferior wall: -large caliber very tortuous RCA with occlusion of the large posterolateral branch, unable to stent Continue heparin drip and Integrilin drip. -low-dose aspirin, high intensity statin therapy, beta-jason, and angiotensin receptor jason. -Transition to PO Brilinta in am upon d/c of integrellin # Hypertension Metoprolol to tartrate 25 mg p.o. twice daily losartan 25 mg daily. #Hypercholesteremia: atorvastatin 40 mg daily. lipid panel am #DMTII A1C in am rest of plan as above I spent a total of 35 minutes coordinating, documenting, and providing care for this patient excluding time spent in the performance of separately billed services. All of the aforementioned completed outside of collaborating with the assigned advanced practitioner for a full treatment plan. I have reviewed the advanced practitioner's documentation, and I agree with, and take responsibility for the plan of care (5) Diabetes Diabetes mellitus type: type 2 (6) Hypertension Hypertension type: unspecified Qualified Code(s): I10 - Essential (primary) hypertension
[2023-10-07] MEDS ORDERED: Heparin IV Adult Wt-Based Low-Dose w/ INITIAL Bolus Protocol IV STA (18:45)
[2023-10-07] MEDS ORDERED: HEPARIN SOD (PORCINE) 1000 UNIT/ML IV ONE (19:01)
[2023-10-07] MEDS: EPTIFIBATIDE 75 MG/100 ML VIAL IV SCH (19:13)
[2023-10-07] MEDS: HEPARIN SODIUM/DEXTROSE 25,000 UNITS/500 ML BAG IV SCH (19:15)
[2023-10-07] MEDS: METOPROLOL TARTRATE 25 MG TAB PO SCH (20:41)
[2023-10-07 23:41] LABS: ANTI-Xa, UFH(UnfractionatedHep 0.15 IU/ml (0.3-0.7)
[2023-10-08] MEDS: HEPARIN SOD (PORCINE) 1000 UNIT/ML IV ONE ×3 (00:42→17:32)
--- NOTE | 2023-10-08 02:42 | Communication Note ---
Date of Service: October 08, [id number]- called to bedside secondary to increase in ventricular ectopy associated with BP in 90s/50s and patient feeling short of breath. He states that his greta st pain is not any worse. - Patient is resting in bed and also just got done rolling in bed to assist nurses with linen change- not objectively having difficulty breathing. - ECG obtained that is without ischemic changes as noted on presenting ECG- as well as PVCS appear to have resolved - Electrolytes are pending - Bedside POCUS performed - without evidence of pericardial effusion, squeeze ap pears to be adequate with limited views and technique limitations - His HR is in the 60s, which may be new for him as well as his BP in the now 100s range which is also new- may consider reduction in BB dose. - He is warm and well perfused with strong pulses, no change in right groin cath site, remains soft without strikethrough or hematoma- doubt at this time acute blood loss - Tolerated CPAP for about 1-2 hours and self removed. Await BMP for electrolytes. No immediate emergent cause for symptoms- at this time likely related to hemodynamics, which both HR and BP are reduced from his normal ranges. Consider crystalloid bolus if needed and replete electrolytes. Cem CARDOZA (ACN-)
[2023-10-08 02:43] LABS: Calcium 8.5 mg/dl (8.6-10.3); Magnesium 1.6 mg/dl (1.7-2.4); Potassium 3.7 mmol/L (3.5-5.1)
[2023-10-08 02:49] LABS: BUN Creatinine Ratio 16.8 (10-20); Est GFR (African American) 107.3 ml/min; Est GFR (Non-African American) 92.6 ml/min
[2023-10-08] MEDS: MAGNESIUM SULFATE / D5W 1 GM/100 ML BAG IV SCH (02:54)
[2023-10-08] MEDS: POTASSIUM CHLORIDE CRTAB 20 MEQ TABCR PO STA (03:02)
[2023-10-08] MEDS: SODIUM CHLORIDE 0.9% 500 ML IV ONE (05:47)
[2023-10-08 08:10] LABS: Chol HDL Ratio 4.2 (0-5)
[2023-10-08 08:12] LABS: Estimated Average Glucose 157 mg/dl; Hemoglobin A1C 7.1 % (4.5-5.6)
[2023-10-08 08:21] LABS: Troponin I High Sensitivity 24670.5 pg/ml (0-20)
--- NOTE | 2023-10-08 08:27 | Critical Care Progress Note ---
Date of Service October 08, 2023 Assessment & Plan (1) Acute NH, true posterior wall: (2) Acute NH, inferior wall: (3) Chest pain: (4) Hypertension: (5) Tobacco abuse: (6) Obstructive sleep apnea, adult: (7) Shortness of breath: (8) Hypotension: (9) Nauseated: Plan 38-year-old male status post left heart cath which revealed RCA occlusion. Stenting was unsuccessful. Patient currently on Integrilin infusion. Unfortunately, the patient's left heart cath 10/07/2023 was unsuccessful at ballooning or stenting the culprit RCA lesion due to difficult anatomy. Today he is having episodic shortness of breath is also nauseated. He has been hypotensive mildly with systolics in the 80s to 100s. EKG this morning reveals a probable STEMI with a right ventricular inferior distribution. EKG findings communicated with cardiology. Patient remains on heparin infusion. I jose castillo reviewed the patient's chest x-ray which was ordered stat this morning. There were slightly increased interstitial markings, but otherwise it was clear. No mediastinal widening was noted. Repeat stat CBC and BMP with magnesium this morning. Replace electrolytes as needed. Acute acute STEMI care per cardiology. As reviewed from Dr. Felipe's note yesterday evening, patient may need transfer to tertiary center for further evaluation. Smoking cessation strongly encouraged to the patient is a 2.5 pack/day smoker since this teenage years. Continue nicotine patch to help with nicotine withdrawal. He also has a history of JONAS and is noncompliant with CPAP. Will monitor in the ICU per cardiology recommendations. Thank you for the consult. Please call questions Admission and Anticipated Discharge Date Admission Date: October 07, 2023 Subjective Patient seen and examined this morning. Overnight he had some runs of ventricular ectopy and associated asymptomatic hypotension. This did improve transiently, but this morning he remains hypotensive with systolics ranging from the 80s to the low 100s. He also noted some nausea earlier today. He describes shortness of breath at rest which is a new symptom for him. Review of Systems Review of Systems: All systems reviewed & are unremarkable except as noted in HPI & below Physical Exam Physical Exam: Constitutional: Patient appears to be of their stated age. Mildly distressed Eyes: Pupils are equal round and reactive to light. Conjunctivae are normal. Anicteric sclera. Ears nose, mouth and throat: Mallampati class 3. Normal posterior oropharynx. Uvula is midline. Neck: Trachea is midline. Visual inspection is normal. Respiratory: Diminished bilaterally. No significant increase in work of breathing. Mild crackles lower lobes. No wheezing. Cardiovascular: Regular rate and rhythm. No murmurs. No edema. Gastrointestinal: Normal bowel sounds, soft, nontender and nondistended. No hepatosplenomegaly noted. Musculoskeletal: No cyanosis. Patient is able to move all extremities. Strength is 5 out of 5 in the upper and lower extremities. Skin: No rashes, warm dry and intact. Neurologic: No obvious focal neurological deficits seen. Psychiatric: Alert and oriented x3 with a euthymic affect. Results & Data Results & Data Vital Signs (Past 12 Hours) Vital Signs Temp Pulse Resp BP Pulse Ox O2 Del Method O2 Flow Rate 10/08/23 04:12 36.6 C 10/08/23 03:30 59 L 27 H 100 Nasal Cannula 2 10/08/23 03:00 107/66 10/08/23 03:00 64 13 98 10/08/23 02:33 66 18 98 10/08/23 02:33 100/59 L 10/08/23 02:30 63 14 98 10/08/23 02:30 92/54 L 10/08/23 02:20 94/56 L 10/08/23 02:20 70 21 96 10/08/23 02:00 65 20 97 10/08/23 02:00 93/59 L 10/08/23 01:50 79 24 99 10/08/23 01:46 92/56 L 10/08/23 01:46 72 17 99 10/08/23 01:40 74 12 98 10/08/23 01:31 72 14 91 10/08/23 01:31 92/50 L 10/08/23 01:30 68 18 97 10/08/23 01:20 67 16 97 10/08/23 01:10 74 16 97 10/08/23 01:01 107/63 10/08/23 01:01 72 23 96 10/08/23 00:45 64 29 H 96 10/08/23 00:30 128/70 10/08/23 00:30 61 27 H 96 10/08/23 00:30 36.6 C 10/08/23 00:15 83 22 96 10/08/23 00:00 112/76 10/08/23 00:00 70 30 H 96 10/07/23 23:45 68 28 H 96 10/07/23 23:31 65 17 97 10/07/23 23:30 121/78 10/07/23 23:29 73 12 96 10/07/23 23:22 73 14 97 10/07/23 23:02 81 19 94 10/07/23 23:02 108/43 L 10/07/23 23:00 73 21 96 10/07/23 22:41 76 10/07/23 22:30 131/70 10/07/23 22:30 75 19 96 10/07/23 22:00 83 14 100 10/07/23 21:31 106/61 10/07/23 21:31 77 18 96 10/07/23 21:30 84 16 96 10/07/23 21:00 77 20 96 10/07/23 21:00 150/93 H 10/07/23 20:30 151/93 H 10/07/23 20:30 81 15 95 Coding Level of Care Code 24546 CRITICAL CARE 1ST 30-74M Diagnoses Acute NH, true posterior wall I21.29 Acute NH, inferior wall I21.19 Chest pain I25.9 Chest pain type: chest pain due to myocardial ischemia Ischemic chest pain type: unspecified angina pectoris type Hypertension, unspecified type I10 Hypertension type: unspecified Tobacco abuse Z72.0 Obstructive sleep apnea, adult G47.33 Shortness of breath R06.02 Hypotension I95.9 Nauseated R11.0 Time Spent (min) 44 (3) Chest pain Chest pain type: chest pain due to myocardial ischemia Ischemic chest pain type: unspecified angina pectoris type Qualified Code(s): I25.9 - Chronic ischemic heart disease, unspecified (4) Hypertension Hypertension type: unspecified Qualified Code(s): I10 - Essential (primary) hypertension
[2023-10-08] MEDS: LANTUS PER UNIT CHARGE SC SCH ×2 (08:30→20:07)
--- NOTE | 2023-10-08 08:35 | XRay Report ---
SINGLE VIEW CHEST CLINICAL HISTORY: Hypoxia FINDINGS: An AP, portable, upright chest radiograph is compared to study dated 05/24/2022. The cardio mediastinal silhouette is unremarkable. There is prominence of the pulmonary vasculature. There is mi ld bibasilar atelectasis. The lungs and pleural spaces are otherwise clear. No pneumothorax is seen. The bony thorax is grossly intact. IMPRESSION: 1. There is prominence of the pulmonary vasculature. Correlate clinically for evidence of fluid overl oad. 2. No airspace consolidation or pleural effusion is identified. ACT 112: Negative or not required by law. Electronically signed by: Carlos Alegria M.D. 10/08/2023 8:33 AM
[2023-10-08 08:42] LABS: ANTI-Xa, UFH(UnfractionatedHep 0.15 IU/ml (0.3-0.7)
[2023-10-08 08:49] LABS: Basophils # (auto) 0.08 K/uL (0.00-0.20); Basophils % (auto) 0.4 %; Eosinophils # (auto) 0.15 K/uL (0.00-0.50); Eosinophils % (auto) 0.8 %; Hematocrit (blood only) 41.2 % (42.0-52.0); Hemoglobin 14.1 g/dl (14.0-18.0); Immature Granulocytes # (auto) 0.13 K/uL (0.01-0.20); Immature Granulocytes % (auto) 0.7 %; Lymphocytes # (auto) 3.15 K/uL (1.20-3.40); Mean Corpuscular Hemoglobin 30.3 pg (25.0-34.0); Mean Corpuscular Hgb Conc 34.2 g/dL (32.0-36.0); Mean Corpuscular Volume 88.4 fL (80.0-100.0); Mean Platelet Volume 10.6 fL (9.4-12.4); Monocytes # (auto) 1.99 K/uL (0.11-0.59); Monocytes % (auto) 10.8 %; Neutrophils # (auto) 12.99 K/uL (1.40-6.50); Neutrophils % (auto) 70.3 %; Platelet Count 242 K/uL (130-400); RDW Coefficient of Variation 12.6 % (11.5-14.5); RDW Standard Deviation 40.5 fL (36.4-46.3); Red Blood Count 4.66 M/uL (4.70-6.10); White Blood Count 18.49 K/ul (4.8-10.8)
[2023-10-08] MEDS ORDERED: LOSARTAN POTASSIUM 25 MG TAB PO SCH (09:00)
[2023-10-08 09:02] LABS: BUN Creatinine Ratio 14.4 (10-20); Calcium 8.1 mg/dl (8.6-10.3); Creatinine Clr Calc Pharmacy 124.6 ml/min; Est GFR (African American) 123.4 ml/min; Est GFR (Non-African American) 106.5 ml/min; Magnesium 2.5 mg/dl (1.7-2.4); Potassium 4.2 mmol/L (3.5-5.1)
[2023-10-08] MEDS: ATORVASTATIN 40 MG TAB PO SCH (09:09)
[2023-10-08] MEDS: FUROSEMIDE INJ 20 MG/2 ML VIAL IV ONE (09:09)
[2023-10-08] MEDS: ASPIRIN 81 MG ECTAB PO SCH (09:09)
[2023-10-08] MEDS: TICAGRELOR 90 MG TAB PO SCH (09:10)
[2023-10-08] MEDS: PANTOprazole 40 MG TAB PO SCH (09:10)
[2023-10-08] MEDS: oxyCODONE/ACETAMINOPHEN 5mg/325mg TAB PO PRN (12:09)
--- NOTE | 2023-10-08 15:10 | Pharmacy Report ---
Pharmacy Glycemic Short Note 2 - Date of Service October 08, 2023 - Glycemic Short BSG Results (Last 24 hours): 10/07/23 10/07/23 10/08/23 15:59 20:40 02:00 Glucose 162 H POC Glucose 147 H 136 H 10/08/23 10/08/23 10/08/23 07:25 07:33 11:09 Glucose 162 H POC Glucose 248 H 160 H OUTPATIENT ANTIDIABETIC REGIMEN: * metformin 1000 mg BIDM * A1c 7.1 % 10/08/23 ASSESSMENT: * Patient is a 38 yo male w/ hx of type II diabetes admitted with STEMI. Tighter glycemic control desired in setting of ACS. * Initially ordered between weight based stress of 1 and 2 novolog and basal held * Fasting this morning 248 mg/dL, will add stress of 1 basal insulin today. * Continue current novolog parameters PLAN FOR INPATIENT GLYCEMIC CONTROL: * Hold outpatient oral diabetes medications * Basal insulin * Lantus 5 units SQ x1 this morning, start 9 units BID this evening * Bolus insulin * NovoLog per scale ACHS or Q6hrs while NPO * Goal Range: Low 120 mg/dL - High 150 mg/dL * Correction Factor: 30 mg/dL/unit * Nutritional / Prandial insulin per carb ratio of 1 unit per 10 grams CHO consumed
[2023-10-08 15:45] LABS: Basophils # (auto) 0.04 K/uL (0.00-0.20); Basophils % (auto) 0.3 %; Eosinophils # (auto) 0.07 K/uL (0.00-0.50); Eosinophils % (auto) 0.4 %; Hematocrit (blood only) 39.8 % (42.0-52.0); Hemoglobin 13.9 g/dl (14.0-18.0); Immature Granulocytes # (auto) 0.07 K/uL (0.01-0.20); Immature Granulocytes % (auto) 0.4 %; Lymphocytes # (auto) 2.03 K/uL (1.20-3.40); Lymphocytes % (auto) 12.8 %; Mean Corpuscular Hemoglobin 30.9 pg (25.0-34.0); Mean Corpuscular Hgb Conc 34.9 g/dL (32.0-36.0); Mean Corpuscular Volume 88.4 fL (80.0-100.0); Mean Platelet Volume 10.1 fL (9.4-12.4); Monocytes # (auto) 1.71 K/uL (0.11-0.59); Monocytes % (auto) 10.8 %; Neutrophils # (auto) 11.96 K/uL (1.40-6.50); Neutrophils % (auto) 75.3 %; Platelet Count 200 K/uL (130-400); RDW Coefficient of Variation 12.4 % (11.5-14.5); RDW Standard Deviation 40.2 fL (36.4-46.3); White Blood Count 15.88 K/ul (4.8-10.8)
[2023-10-08 15:51] LABS: ANTI-Xa, UFH(UnfractionatedHep 0.17 IU/ml (0.3-0.7)
[2023-10-08] MEDS: ONDANSETRON INJ 2 MG/ML 2 ML VIAL IV PRN (16:27)
--- NOTE | 2023-10-08 16:40 | Cardiology Progress Note ---
Date of Service October 08, 2023 Assessment & Plan (1) Shortness of breath: Plan: Seems to be most likely secondary to mild CHF on top of his chronic lung disease from smoking. There may be some contribution of the Brilinta given sudden onset of symptoms. Will diurese with IV loop diuretics to see how he does. Fortunately, there is no echo evidence of mechanical complication from his myocardial infarction at this point. We will reassess again tomorrow. (2) Acute IN, inferior wall: Plan: Occluded posterolateral branch. We could not deliver stent or angioplasty balloon to the lesion although we initially had some success clearing clot. He will complete 48 hours of heparin therapy. He should remain on aspirin as well but I think the Brilinta should be changed to Plavix at this point. This may help improve his dyspnea. He is still at risk for mechanical complication of IN until tomorrow. He should remain in the ICU. In the event that he has VSD or papillary muscle rupture as a complication we would have to identify them by echo and then transfer emergently to tertiary center for cardiac surgery. An intra-aortic balloon pump or Impella device would be a prerequisite to transfer. For now, he will continue with his current medical regimen except as altered above or below. (3) Hypertension: Plan: He was having some lower blood pressures. He does not take his home medications regularly and I suspect that he actually needs a little less blood pressure medication that he is currently taking. We would like to keep him on an DAVID inhibitor and at least a low-dose beta-jason. Because of the lower blood pressures today and think will continue to hold until he begins to show an elevated blood pressure. (4) Hypercholesteremia: Plan: He is high risk. High intensity statin therapy ongoing. Plan I will have Dr. Han assessed the patient tomorrow as I will not be in town. I will also have him review the coronary angiography. Depending on the patient's clinical course consideration may be made for repeat angiography and then appropriate therapy determined at that time. Medical management is the foundation for his treatment at this point and it would be most ideal if we could postpone angiography for a few weeks. Of course, if he becomes clinically unstable and that we will not be possible. Likelihood that would be able to deliver a stent to the occluded posterior lateral branch with his known tortuous vessels remains low, however, if he is not coughing and moving there remains a small possibility of success. Admission and Anticipated Discharge Date Admission Date: October 08, 2023 Subjective Asked to see the patient about dyspnea. He has several episodes of dyspnea overnight but he denies any chest pain heaviness or tightness. His EKG showed residual inferior ST elevations. Patient had undergone full study echo earlier in the day but his new onset symptoms which were more protracted this a.m. occurred after that. Therefore we had a very brief stat echo performed to exclude mechanical complication of myocardial infarction. This did not show papillary muscle rupture with acute severe mitral regurgitation nor did show evidence of VSD or free wall rupture. He was hemodynamically stable. Patient wishes to go outside and smoke. Review of Systems Review of Systems: Negative except as per HPI Physical Exam Constitutional: WD/WN, vitals as above (Morbidly obese middle-age male) Eyes: Extraocular muscles intact. Sclera are anicteric ENMT: [place] is pink moist and intact Neck: No JVD. Thick. Respiratory: Bilateral crackles bases to half up. No wheezing or rhonchi appreciated. Poor air movement. Cardiovascular: Regular rate and rhythm. Distant heart sounds. S4 gallop. Cannot appreciate any murmurs or rubs today. Access site is clean dry and intact. Good distal perfusion. Neurologic: Cognition is intact. Speech is fluent. No focal deficits. No tremor. Psychiatric: A+Ox3, euthymic affect Results & Data Vital Signs (Past 12 Hours) Vital Signs Temp Pulse Pulse Resp BP BP Pulse Ox 10/08/23 13:02 37.6 C 70 20 110/75 97 10/08/23 11:01 69 14 98 10/08/23 11:01 124/70 10/08/23 11:00 70 12 98 10/08/23 10:00 90/52 L 10/08/23 10:00 66 11 L 90/52 L 99 10/08/23 08:50 69 16 122/66 98 10/08/23 08:30 72 15 107/70 97 10/08/23 08:30 10/08/23 08:23 100/66 10/08/23 08:17 74 19 85/68 L 90 10/08/23 08:01 68 23 91/56 L 100 10/08/23 08:00 10/08/23 08:00 75 05/01/24 07:00 66 20 123/66 98 O2 Del Method O2 Flow Rate 10/08/23 13:02 Nasal Cannula 2 10/08/23 11:01 10/08/23 11:01 10/08/23 11:00 10/08/23 10:00 10/08/23 10:00 Nasal Cannula 2 10/08/23 08:50 Nasal Cannula 2 10/08/23 08:30 Nasal Cannula 2 10/08/23 08:30 Nasal Cannula 2 10/08/23 08:23 10/08/23 08:17 Nasal Cannula 2 10/08/23 08:01 Nasal Cannula 2 10/08/23 08:00 Nasal Cannula 10/08/23 08:00 10/08/23 07:00 Room Air PG Care Time/CCT Total # of Minutes Spent Total Time Spent with Patient: Total time spent is greater than 50% in coordination of care (as documented) at patient's floor/unit and/or counseling patient: Coding Level of Care Code 18534 SUB INP/OBS CARE 3/50MIN Diagnoses Shortness of breath R06.02 Acute IN, inferior wall I21.19 Hypertension, unspecified type I10 Hypertension type: unspecified Hypercholesteremia E78.00 (3) Hypertension Hypertension type: unspecified Qualified Code(s): I10 - Essential (primary) hypertension
--- NOTE | 2023-10-08 16:44 | Hospitalist Progress Note ---
Date of Service October 08, 2023 Assessment & Plan (1) Acute [place], inferior wall: Plan: Bennie Cohen is a 38y/o male with PMH of HTN, DM type II, hypercholesteremia, acid reflux, obesity, JONAS and tobacco use disorder [2.5 pack/day] who presented to the ED via EMS for evaluation of chest pain and was found to have an acute inferior ST elevation [place]. STEMI --S/P left heart catheterization on 10/07/2023--unsuccessful at ballooning/stenting of culprit RCA lesion due to difficult anatomy --CXR:There is prominence of the pulmonary vasculature. Correlate clinically for evidence of fluid overload.. No airspace consolidation or pleural effusion is identified. --ECHO pending -- HbA1c 7.9 --Lipid panel within normal limits --Elevated troponins --Continue aspirin, Lipitor, IV heparin, Brilinta Consider resuming metoprolol as able Appreciate critical care, cardiology input Continue to monitor in ICU (2) Acute [place], true posterior wall: (3) Obstructive sleep apnea, adult: Plan: -Hx of noncompliance with CPAP (4) Tobacco abuse: Plan: Counseled to quit smoking . (5) Diabetes: Plan: HbA1c 7.9 Continue insulin per protocol Monitor BGs (6) Hypertension: Plan: On Lisinopril-HCTZ at home Currently not on meds Monitor and adjust medications as needed (7) Hypercholesteremia: Plan: Continue statin DVT Px: IV Heparin Code Status: Full Code Admission and Anticipated Discharge Date Admission Date: October 08, 2023 Subjective Patient is seen and examined at bedside States having retrosternal chest pain associated with nausea, dyspnea and dizziness Also reports some back pain Discussed with cardiology and patient's family at bedside Currently on IV heparin drip No other complaints Review of Systems Review of Systems: All systems reviewed & are unremarkable except as noted in Subjective Physical Exam Physical Exam: Physical Exam: Vitals signs as noted above General Appearance:Obese, no apparent distress Head: normocephalic, Atraumatic Eyes: normal inspection, EOMI Neck: supple, Trachea midline Respiratory/Chest: Decreased breath sounds, CTA, No accessory muscle use Cardiovascular: S1, S2, No murmur Abdomen/GI:Soft, Non tender, Bowel sounds present Extremities/Musculoskeletal:normal inspection, no edema Neurologic/Psych:AAOX3, grossly no focal neurological deficits Skin: normal color, warm Results & Data Results & Data Vital Signs (Past 12 Hours) Vital Signs Temp Pulse Pulse Resp BP BP Pulse Ox 10/08/23 13:02 37.6 C 70 20 110/75 97 10/08/23 11:01 69 14 98 10/08/23 11:01 124/70 10/08/23 11:00 70 12 98 10/08/23 10:00 90/52 L 10/08/23 10:00 66 11 L 90/52 L 99 10/08/23 08:50 69 16 122/66 98 10/08/23 08:30 72 15 107/70 97 10/08/23 08:30 10/08/23 08:23 100/66 10/08/23 08:17 74 19 85/68 L 90 10/08/23 08:01 68 23 91/56 L 100 10/08/23 08:00 10/08/23 08:00 75 10/08/23 07:00 66 20 123/66 98 O2 Del Method O2 Flow Rate 10/08/23 13:02 Nasal Cannula 2 10/08/23 11:01 10/08/23 11:01 10/08/23 11:00 10/08/23 10:00 10/08/23 10:00 Nasal Cannula 2 10/08/23 08:50 Nasal Cannula 2 10/08/23 08:30 Nasal Cannula 2 10/08/23 08:30 Nasal Cannula 2 10/08/23 08:23 10/08/23 08:17 Nasal Cannula 2 10/08/23 08:01 Nasal Cannula 2 10/08/23 08:00 Nasal Cannula 10/08/23 08:00 10/08/23 07:00 Room Air Laboratory Results Short CBC 10/07/23 10/08/23 10/08/23 Range/Units 16:52 07:33 15:29 WBC 13.62 H 18.49 H 15.88 H (4.8-10.8) K/ul Hgb 16.7 14.1 13.9 L (14.0-18.0) g/dl Hct 46.6 41.2 L 39.8 L (42.0-52.0) % Plt Count 242 242 200 (130-400) K/uL BMP 10/08/23 10/08/23 02:00 07:33 Sodium 133 L 133 L Potassium 3.7 4.2 Chloride 103 105 Carbon Dioxide 23 21 BUN 17 13 Creatinine 1.01 0.90 Glucose 162 H 162 H Calcium 8.5 L 8.1 L (5) Diabetes Diabetes mellitus type: type 2 (6) Hypertension Hypertension type: unspecified Qualified Code(s): I10 - Essential (primary) hypertension
--- NOTE | 2023-10-08 17:10 | Cardiac Catheterization ---
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 Cardiac Status Clinical evaluation leading to the procedure CAD Presenation: STEMI Anginal Classification: CCS IV Heart Failure: No Cardiogenic Shock within 24 Hours: No Cardiac Arrest within 24 Hours: No Imaging Studies Past 6 Months: No Coronary Anatomy Dominant: Right Left Main (% Stenosis): Normal LAD (% Stenosis): Proximal (Less than 20%) and Distal (Up to 50%) D1 (% Stenosis): Normal D2 (% Stenosis): Normal D3 (% Stenosis): Normal Circumflex (% Stenosis): Normal OM1 (% Stenosis): Normal RCA (% Stenosis): Proximal (Mild) R PDA (% Stenosis): Normal R PL1 (% Stenosis): Proximal (100% with thrombus) Diagnostic Physicians Name: Stanley Felipe MD, PhD Closure Device Percutaneous Entry Location: Radial and femoral Closure Device: Angio-Seal and Radial Band Recommendations: Medical Therapy and/or Counseling Reason For Delay in PCI:: Difficulty crossing culprit lesion Intraprocedure Events Significant Disection: No Perforation: No Cardiac Cath Procedure Full Procedure Date October 08, 2023 Pre-Procedure Diagnosis Pre-Procedure Diagnosis: STEMI AUC Score AUC Score: 09 Post-Procedure Diagnosis Post-Procedure Diagnosis: Severe CAD and Unsuccessful PCI Procedure(s) Performed Procedure(s) Performed: Coronary Angiography and Ultrasound Guided Vascular Access Die Polisher Stanley Felipe MD, PhD Estimated Blood Loss Estimated Blood Loss: 20 mL Medication(s) Medication(s): Diphenhydramine, Fentanyl and Versed Summary of Findings Brief description: Patient was brought emergently to the cardiac catheterization suite where he was shaved and prepped in a sterile fashion. Sedated using IV Versed, fentanyl, and Benadryl. Soft tissues of the right wrist were anesthetized using 2 mL of 1% Xylocaine. The right radial artery was accessed using ultrasound and a modified Seldinger technique. A 6 British radial artery glide sheath was placed. Patient was provided with anticoagulation using IV heparin and antispasmodics including nicardipine and nitroglycerin. All catheters were advanced and exchanged over a 0.035 J-tip wire. Right coronary angiography was performed in orthogonal views with a 6 British JR4 guide catheter. We proceeded immediately to attempted PCI. BMW reversal guidewire was advanced through the guidewire but could not cross the lesion in the posterolateral branch of the RCA. Therefore, a 5 British guide liner guide catheter was advanced over the wire. The guidewire was able to be advanced further and then and positioned beyond the lesion. A 2.5 x 12 mm trek balloon was advanced to help in advancing the guidewire far enough down the branch of the posterior lateral so that we could deliver the balloon and perform angioplasty. However, the patient has nausea and persistent coughing. Each time that he coughs and moves we are unable to maintain guide catheter position and the guidewire and even the trek balloon were moved out of position. Patient was given Zofran and additional sedation but we continued to have this issue. Ultimately, we decided to attempt intervention from the right groin. Soft tissue the right groin were anesthetized using 10 mL of 1% Xylocaine. Using ultrasound for guidance, the right femoral artery was accessed and a 6 British femoral artery sheath was placed. A 6 British JR4 guide catheter was then advanced over the J-wire and used to engage the right coronary artery. A new BMW reversal guidewire was advanced and again could not adequately pass the lesion in the posterolateral. Therefore a 2.5 x 12 mm trek balloon was advanced to add support but we could not advance the guidewire adequately. Trek balloon was removed and the guide liner was reinserted. The trek balloon was then reinserted through this but we were unable to deliver the balloon across the l esion. Patient continued with coughing and only had increasingly more difficult time advancing the balloon and the guidewire. Fortunately the patient's chest pain was significantly improved although not completely resolved. We did shoot ticketer angiography and what had been initially opened with the guidewire was no longer open. I was concerned for dissection at the plaque from attempts to pass the wire and the trek balloon. I also was concerned about causing additional problems or worsening/extending the occluded segment. It was very evident that we would not be able to deliver anything safely to this branch vessel and decision was made to abandon further attempts. Therefore, the trek balloon, guide liner, and BMW wire were withdrawn and final angiographic evaluation was performed demonstrating the vessel to be with residual OLAF 0 flow. The guide catheter was then removed from the patient. We completed coronary angiography with a 5 British JL 3.5 diagnostic catheter. All catheters were removed. Limited right femoral artery angiography was performed to evaluate for closure. Findings were favorable, therefore, the femoral artery sheath was removed and hemostasis was obtained using a 6 British Angio-Seal closure device. Then, the radial artery sheath was removed and hemostasis there was obtained using the TR band. Patient was hemodynamically stable. He was then admitted to the ICU for further workup and management. He was placed on heparin drip, Integrilin drip after double bolus administration, and he had been given Brilinta in the emergency department prior to catheterization. This ended the case. Coronary angiography findings: RCA-large caliber ectatic and very tortuous vessel. Bifurcates distally into a large PDA and a large branching posterolateral. Proximal RCA has mild less than 30% stenosis. The mid and distal vessel also have diffuse luminal irregularities. PDA is large and long with mild luminal irregularities. The posterolateral branch is large and is 100% occluded proximally with significant thrombus and OLAF 0 flow. [id number] and short vessel with luminal irregularities. LAD-large and reaches apex. Proximal has diffuse less than 20% stenosis. First 2 branches are the septal and first diagonal. Each of these are relatively small. Mid LAD has no significant disease. He gives a large branching second diagonal which has mild luminal irregularities. The distal vessel becomes smaller as it approaches the apex. There is up to 50% stenosis. There is a medium caliber third diagonal without significant disease. [id number] and nondominant. Proximal segment with mild luminal irregularities. Gives a small atrial branch and then becomes a large caliber OM1 which has luminal irregularities. Attempted PCI of posterolateral branch. Remains 100% occluded proximally. OLAF 0 flow. No perforation. Cannot exclude dissection versus rethrombosis. After initial wire passage and heparin there was some flow beyond the occluded portion and most of the clot seemed to have resolved. The posterolateral is seen to have several branches with a probable atherosclerotic lesion at the first branch point appearing 90% stenosed or greater. Unfortunately, attempts to maintain the wire distally and deliver a balloon for angioplasty were unsuccessful. Summary: 1. Acute inferior FL secondary to posterolateral branch occlusion. 2. Mild nonocclusive disease in the left coronary system. 3. Attempted PCI of the posterolateral branch unsuccessful secondary to a multitude of complicating factors including tortuous and ectatic RCA and tortuous posterolateral branch. Also, inadequate guide support and patient with persistent coughing and movement causing equipment to dislodge and not remain in place. 4. Patient will remain on heparin drip for 48 hours, dual antiplatelet therapy, and Integrilin drip for 12 hours. We are hoping for resolution of the thrombus which seems to be the main component of his posterolateral branch occlusion. ICU admission for close monitoring. He will be placed on guideline directed medical therapy for secondary prevention of coronary disease. We will consider repeat catheterization and attempt at PCI pending evolution of his clinical course. Hemodynamics Rest Ao:: 150/106 mmHg Final Ao: 135/106 mmHg LV: Not performed Recommendations Recommendations: Medical Therapy and/or Counseling Radiation Exposure (mGy) 2442 mGy, fluoroscopy time 13.2 minutes Contrast (mls) 180 Anesthesia 50 mg Benadryl, 150 mcg fentanyl, 6 mg Versed IV. Start 1340, end 1434 Procedural Complication(s) None Disposition ICU I attest to the content of the Intraoperative Record and any orders documented therein. Any exceptions are noted below. [facility] Card Cath Procedure Codes Cardiac Catheterization Procedure 1: Cardiovascular Cath Procedures: 09069 Coronaries Therapeutic Services & Ancillary Procedure 1: Cardiovascular Tx and Anc Procedures: 43729 Ultrasonic Guidance Vascular Access Moderate Sedation Procedure 1: Sedation/Anesthesia: 38664 Mod Sedation by the same physician;Init15 Min Child Age 5 & Up (Initial 15 min, start 1340) Procedure 2: Sedation/Anesthesia: 97576 Mod Sedation by the same physician; Ea [id number] Minutes (Additional 41 minutes, end time 1434) PG Care Time/CCT Total # of Minutes Spent Total Time Spent with Patient: Total time spent is greater than 50% in coordination of care (as documented) at patient's floor/unit and/or counseling patient:
--- OUTSIDE RECORDS SUMMARY | 2023-10-08 17:59 | External Medical Summary | Summary of Care ---
Author Name Unknown Organization [facility] Address [address] [place] [address] Phone [phone] Care Team Providers Care Float Tender Name Role Phone Erika Sebastian DO Primary Care Provider Encounter Details Date Type Department Care Team (Late st Contact Info) Description 10/06/2023 Orders Only [facility] [address] [place] [id number] Erika Sebastian DO [address], [place] [phone] Allergies No known active allergiesdocumented as of this encounter (statuses as of 10/06/2023) Medications Medication Sig Dispensed Refills Start Date End Date Status Michelle Olivia 30GIndications:Type 2 diabetes mellitus with hemoglobin A1c goal of less than 7.0% (HCC) Use as directed 4 times a day 200 Each 5 01/25/2021 Active Albuterol Sulfate 2.5 MG/0.5ML Inhalation Nebulization Solution (Proventil) Inhale 0.5 mL via nebulizer. 0 Active CPAP every night at bedtime. Unknown dose 0 Active Atorvastatin Calcium 20 MG Oral Tablet (Lipitor)Indications :Dyslipidemia, goal LDL below 100 Take 1 Tablet by mouth in the morning. 90 Tablet 3 09/18/2023 Active metFORMIN HCl 1000 MG Oral Tablet (Glucophage)Indicati ons:Type 2 diabetes mellitus with hemoglobin A1c goal of less than 7.0% (HCC) Take 1 Tablet by mouth 2 times a day with morning and evening meals. 180 Tablet 3 09/18/2023 Active Omeprazole 20 MG Oral Capsule Delayed Release (PriLOSEC)Indication s:Gastric hyperacidity Take 1 Capsule by mouth in the morning. 90 Capsule 3 09/18/2023 Active OneTouch Delica Lancets 30G Route: Use as directed 4 times a day. E11.9 400 Each 3 09/18/2023 Active OneTouch Verio In Vitro Strip (Glucose Blood) Use 4 times a day E11.9 100 Strip 11 09/18/2023 Active OneTouch Verio w/Device Kit Use 4 times a day E11.9 1 Kit 0 09/18/2023 Active Lisinopril-hydroCHLO ROthiazide 10-12.5 MG Oral Tablet Take 1 Tablet by mouth in the morning. 90 Tablet 3 09/18/2023 Active Varenicline Tartrate 0.5 MG Oral Tablet (Chantix) Take 1 Tablet by mouth daily for 7 days, THEN 1 Tablet 2 times a day for 21 days. 49 Tablet 0 09/18/2023 10/16/2023 Active documented as of this encounter (statuses as of 10/06/2023) Active Problems Problem Noted Date Diagnosed Date Hematuria, gross 06/24/2023 Body mass index (BMI) of 40.0 to 44.9 in adult 0 02/19/2021 Overview: Per Obesity protocol Type 2 diabetes mellitus wit h hemoglobin A1c goal of less than 7.0% 01/25/2021 HTN, goal below 130/80 01/25/2021 Morbid obesity due to excess calories 01/18/2021 Daytime somnolence 01/01/2016 JONAS (obstructive sleep apnea) 09/20/2013 Overview: 09/14/13 -- AHI 4.5, RDI 7.0 DME: [employer] Dyslipidemia, goal LDL below 100 07/09/2013 Tobacco use disorder 07/12/2011 documented as of this encounter (statuses as of 10/06/2023) Resolved Problems Problem Noted Date Diagnosed Date Resolved Date Acute right flank pain 06/24/202309/18 HTN, goal below 140/90 08/23/201409/17 Chest pain 02/02/2014 05/25/2019 Dyslipidemia, goal to be determined 02/02/2014 05/25/2019 Hyperlipidemia 07/09/2013 07/09/2013 HTN, goal below 130/80 07/09/201308/23 Obesity, Class II, BMI 35-39 .9, isolated (see actual BMI) 07/12/2011 09/19/2023 Overview: BMI= 37.20 07/12/11 Cough 07/12/2011 05/25/2019 Acute sinusitis 07/12/2011 05/25/2019 Acute bronchitis, complicated 07/12/2011 05/25/2019 Tobacco use disorder 11/02/2010 012 Chronic bronchitis, simple 11/02/2010 1 07/26/2018 documented as of this encounter (statuses as of 10/06/2023) Immunizations Name Administration Dates Next Due COVID-19 mRNA, LNP-s, No Pre serve, 2-Dose Series ([employer]) 10/25/2020,09/28/2020 Seasonal Influenza, PF, 6 M & above, IM , (FluLaval or Fluzone) 04/12/2021 documented as of this encounter Social History Tobacco Use Types Packs/Day Years Used Date Smoking Tobacco: Every Day Cigarettes 2 13 Passive Smoke Exposure: Current Smokeless Tobacco: Never Comments:pt wants to talk to the Dr about chantix Alcohol Use Standard Drinks/Week Comments Yes 0 (1 standard drink = 0.6 oz pur e alcohol) occasionally AUDIT-C Answer Date Recorded Q1: How often do you have a drink containing alc ohol? Never 03/12/2021 Q2: How many drinks containi ng alcohol do you have on a typical day when you are drinking? Not asked 03/12/2021 Q3: How often do you have six or more drinks on one occasion? Never 03/12/2021 PHQ-2 Answer Date Recorded PHQ Adult Total Score 1 09/18/2023 Hunger Vital Sign Answer Date Recorded Within the past 12 months, y ou worried that your food would run out before you got the money to buy more. Patient declined Within the past 12 months, t he food you bought just didn't last and you didn't have money to get more. Patient declined 04/2024 Sex and Gender Information Value Date Recorded Sex Assigned at Male 01/18/2021 9:24 AM EDT Gender Identity Male 01/18/2021 9:24 AM EDT Sexual Orientation Straight 01/18/2021 9: 24 AM EDT Job Start Date Occupation Industry Not on file Not on file Not on file documented as of this encounter Plan of Treatment Upcoming Encounters Date Type Department Care Team (Late st Contact Info) Description 12/01/2023 10:30 AM EDT Office Visit Otolaryngology [facility] [address] [place] [id number] Alex Hernandez DO [address] [place] [phone] Health Maintenance Due Date Last Done Comments DISCUSS TOBACCO CESSATION (REFER TO SMARTSET #[id number]) 1983 Pneumococcal Vaccine: Pediatrics (0 to 5 Years) and At-Risk Patients (6 to 64 Years) (1 of 2 - PCV) 08/18/1989 Diabetic Eye Exam 08/18/2001 09/30/2023 DTaP,Tdap,and Td Vaccines (1 - Tdap) 08/18/2002 HbA1c 12/25/2021 06/27/2021, 01/18/2021 COVID-19 Vaccine (3 - season) 2023 10/25/2020, 09/28/2020 Influenza Vaccine (FLU shot) (Season Ended) 2024 04/12/2021 GFR 07/16/2024 07/16/2023, 06/09, 01/18/2021, Additional history exists Albumin/Creatinine Ratio 09/17/2024 09/18/2023, 06/09 Depression Screening 09/17/2024 09/18/2023 Diabetic Foot Exam 09/17/2024 09/18/2023, 06/27/2021 Lipid Panel 06/27/2026 06/27/2021, 07/11, 07/31/2017, Additional history exists GARDASIL-HPV IMMUNIZATION SERIES Aged Out No longer eligible based on patient's age to complete this topic Hepatitis B Discontinued MENINGOCOCCAL (MENACTRA/MENVEO) Aged Out No longer eligible based on patient's age to complete this topic documented as of this encounter Medical Devices Not on filedocumented as of this encounter Procedures Procedure Name Priority Date/Time Associated Diagnosis Comments DIABETIC EYE EXAM Routine 09/30/2023 documented in this encounter Results * DIABETIC EYE EXAM (09/30/2023) 09/30/2023 History Per Patient OTHER OUTSIDE LAB (SEE SCANNED REPORT) documented in this encounter Advance Directives Latest Code Status on File Code Status Date Activated Date Inactivated Comments Full Code 07/21/2023 10:59 AM 07/21/2023 5:07 PM This order reflects the patients wishes and were consensually agreed upon. Question Answer Comments Discussion of Advance Directives occurred with: Not Discussed due to patient's condition Care Teams Float Tender Relationship Specialty Start Date End Date Erika Sebastian DO [address] [place] [facility] [place] [address] PCP - General Family Medicine 10/26/10 documented as of this encounter
--- OUTSIDE RECORDS SUMMARY | 2023-10-08 18:00 | External Medical Summary | Summary of Care ---
Author Name Unknown Organization [facility] Address [address] [place] [address] Phone [phone] Care Team Providers Care Rigger Third Name Role Phone Zach Ca Primary Care Provider [phone] Reason for Visit * Auth/Cert Specialty Diagnoses / Procedures Referred By Dorinda martin Referred To Contact Diagnoses Hematuria, gross Acute right flank pain Hematuria, gross [R31.0] Acute right flank pain [R10.9] Procedures FLUORO PYELOGRAM RETROGRADE UROGRAHY, RETROGRADE, WITH OR WITHOUT KUB Referral ID Status Reason Start Date Expiration Date Visits Re quested Visits Authorized [id number] Encounter Details Date Type Department Care Team (Latest Contact Info) Description 07/21/2023 9:19 AM EST - 07/21/2023 12:10 PM EST Hospital Encounter OR [facility], Operating Room, [facility] - 4th Floor [address] [facility] [place] [address] Bud Caldera Jr., MD [address] [facility] [address] [place] [address] Discharge Disposition: Home - Self Care Allergies No known active allergiesdocumented as of this encounter (statuses as of 07/22/2023) Medications Medication Sig Dispensed Refills Start Date End Date Status OneTouch Verio w/Device Kit Use 4 times a day E11.9 1 Kit 0 01/22/2021 Active OneTouch Verio In Vitro Strip (Glucose Blood) Use 4 times a day E11.9 100 Strip 11 01/22/2021 Active OneTouch Delica Lancets 30G Route: Use as directed 4 times a day. E11.9 400 Each 3 01/24/2021 Active OneTouch Delica Lancets 30GIndications:Type 2 diabetes mellitus with hemoglobin A1c goal of less than 7.0% (HCC) Use as directed 4 times a day 200 Each 5 01/25/2021 Active Benzonatate 200 MG Oral CapsuleIndications: Cough Take 1 Cap by mouth 3 times a day as needed for Cough. 50 Cap 1 03/12/2021 Active Additional Information Patient not taking.Reported on 06/24/2023 metFORMIN HCl 1000 MG Oral Tablet (Glucophage)Indicat ions:Type 2 diabetes mellitus with hemoglobin A1c goal of less than 7.0% (HCC) Take 1 Tab by mouth 2 times a day with morning and evening meals. 180 Tab 3 04/12/2021 Active Omeprazole 20 MG Oral Capsule Delayed Release (PriLOSEC)Indicatio ns:Gastric hyperacidity Take 1 Cap by mouth daily. 90 Cap 3 04/12/2021 Active Atorvastatin Calcium 20 MG Oral Tablet (Lipitor)Indication s:Dyslipidemia, goal LDL below 100 TAKE 1 TABLET BY MOUTH EVERY DAY 90 Tablet 1 07/16/2021 Active Lisinopril 10 MG Oral Tablet (Prinivil)Indicatio ns:HTN, goal below 130/80 One pill by mouth once a day 90 Tablet 1 01/23/2022 Active Albuterol Sulfate 2.5 MG/0.5ML Inhalation Nebulization Solution (Proventil) Inhale 0.5 mL via nebulizer. 0 Active CPAP every night at bedtime. Unknown dose 0 Active oxyCODONE-Acetamino phen 5-325 MG Oral Tablet (Percocet) Take 1 Tablet by mouth every 4 hours as needed for Pain, Severe for up to 3 days. 6 Tablet 0 07/21/2023 07/24/2023 Active documented as of this encounter (statuses as of 07/22/2023) Active Problems Problem Noted Date Diagnosed Date Hematuria, gross 06/24/2023 Acute right flank pain 06/24/2023 Body mass index (BMI) of 40.0 to 44.9 in adult 0 02/19/2021 Overview: Per Obesity protocol Type 2 diabetes mellitus wit h hemoglobin A1c goal of less than 7.0% 01/25/2021 HTN, goal below 130/80 01/25/2021 Morbid obesity due to excess calories 01/18/2021 Daytime somnolence 01/01/2016 HTN, goal below 140/90 08/23/2014 JONAS (obstructive sleep apnea) 09/20/2013 Overview: 09/14/13 -- AHI 4.5, RDI 7.0 DME: HSE MANAGER Dyslipidemia, goal LDL below 100 07/09/2013 Obesity, Class II, BMI 35-39.9, isolated (see ac tual BMI) 07/12/2011 Overview: BMI= 37.20 07/12/11 Tobacco use disorder 07/12/2011 documented as of this encounter (statuses as of 07/22/2023) Resolved Problems Problem Noted Date Diagnosed Date Resolved Date Chest pain 02/02/2014 05/25/2019 Dyslipidemia, goal to be determined 02/02/2014 05/25/2019 Hyperlipidemia 07/09/2013 07/09/2013 HTN, goal below 130/80 07/09/201308/23 Cough 07/12/2011 05/25/2019 Acute sinusitis 07/12/2011 05/25/2019 Acute bronchitis, complicated 07/12/2011 05/25/2019 Tobacco use disorder 11/02/2010 012 Chronic bronchitis, simple 11/02/2010 1 07/26/2018 documented as of this encounter (statuses as of 07/22/2023) Immunizations Name Administration Dates Next Due COVID-19 mRNA, LNP-s, No Pre serve, 2-Dose Series ([employer]) 10/25/2020,09/28/2020 Seasonal Influenza, PF, 6 M & above, IM , (FluLaval or Fluzone) 04/12/2021 documented as of this encounter Social History Tobacco Use Types Packs/Day Years Used Date Smoking Tobacco: Every Day Cigarettes 2 13 Smokeless Tobacco: Never Tobacco Cessation:Ready to Q uit: Not Asked; Counseling Given: Not Answered Comments:pt wants to talk to the Dr [...] occasion? Never 03/12/2021 PHQ-2 Answer Date Recorded PHQ-2 Score 2 04/12/2018 Hunger Vital Sign Answer Date Recorded Within the past 12 months, y ou worried that your food would run out before you got the money to buy more. Never true 12/21/19 21 Within the past 12 months, t he food you bought just didn't last and you didn't have money to get more. Never true 12/20/2020 Sex and Gender Information Value Date Recorded Sex Assigned at Male 01/18/2021 9:24 AM EDT Gender Identity Male 01/18/2021 9:24 AM EDT Sexual Orientation Straight 01/18/2021 9: 24 AM EDT Job Start Date Occupation Industry Not on file Not on file Not on file documented as of this encounter Last Filed Vital Signs Vital Sign Reading Time Taken Comments Blood Pressure 194/121 07/21/2023 11:45 AM EST reinforced following up with PCP and taking medications daily Pulse 82 07/21/2023 11:45 AM EST Temperature 36.4 C (97.5 F) 07/21/2023 1 1:45 AM EST Respiratory Rate 21 07/21/2023 11:4 5 AM EST Oxygen Saturation 95% 07/21/2023 11: 45 AM EST Inhaled Oxygen Concentration - - Weight 104.3 kg (230 lb) 06/25/2023 10: 37 AM EST Height 162.6 cm (5' 4") 06/25/2023 10:3 7 AM EST Body Mass Index 39.48 06/25/2023 10:37 AM EST documented in this encounter Discharge Instructions * Discharge Instr - AVS* Verenice Rivera, Bud Macias MD - 07/21/2023 10:57 AM EST Discharge Date: 07/21/2023 Check your Patient Education Brochure for further information. If you have any further questions call your physician at [phone]. The information below provides you with the instructions and the list of medications you need to betaking following discharge from the hospital. If you have any questions, please ask before leaving.Please carry this letter with you when you see your doctor in the clinic. If you have questions, you can reach us at the numbers above. Diet: Start with clear liquids (jello, tea, apple juice), avoid dairy products (milk, cheese, pudding, ice cream) and fried, greasy foods. Progress to prescribed diet as tolerated. If nausea should occur, have clear liquids only until soft foods can be tolerated. Activity: A responsible adult must be with the patient for 24 hours after surgery. Rest today and tomorrow, and then increase activity as tolerated. DO NOT drive, operate any appliances and/or machinery or sign legal documents for 24 hours. Control of Pain: Prescription: percocet Warnings: Call your surgeon promptly in case of: A. Excessive bleeding B. Fever greater than 101 degrees F (38.3 degrees centigrade) C. Persistent nausea and vomiting D. Redness, swelling or pus-like drainage E. Pain that is not relieved by the medicine you were told to take F. Other Special Instructions: A. Dressing change: Date you may return to work or school: N/A Follow-up with your urologist in 1 month(s). documented in this encounter Progress Notes * Bud Caldera Jr., MD - 07/21/2023 10:56 AM EST [address] [address] OUTPATIENT SURGERY DISCHARGE SUMMARY NOTE Name: Bennie Cohen Location: [facility] Date: 07/21/2023 Time: 10:56 AM Surgery Date: 07/21/2023 Procedure: Procedure(s): UROGRAHY, RETROGRADE, WITH OR WITHOUT KUB Bilateral Surgeon: Surgeon(s): Bud Caldera Jr., MD Discharge Diagnosis: hematuria After examination of this patient, I have determined he is ready for discharge to home when the patient meets criteria. Discharge instructions were given to the patient. documented in this encounter H&P Notes * Bud Caldera Jr., MD - 07/21/2023 10:06 AM EST H&P 07/21/23 [id number] PCP: ZACH CA [address] [place] [address] [phone] Bennie Cohen is a 37 year old male, who presents in referral for evaluation of gross hematuriawith flank pain. He is a known smoker. I have a copy of a ER visit note from [facility] without the ability to review imaging directly. He had right flank pain and pain that lasted for a day with gross blood still continuing. He had a urine test confirmed blood in the urine and he has no anemia and slightly elevated WBC count from the ER 06/21/23. He does report a history of blood in the urine and possible kidney stones but never saw one. He does report having a larger stone in the past that was dissolved with medication. I have no records of this history other than his re[porting. Contrast CT reports identify a small non obstructing stone on the left but no right stones where his pain was. The bladder appears normal. He denies any trauma. He was discharged and referred to us for further evaluation. The presence of blood in the urine can be a sign of disease in the urinary tract. We will recommendthe evaluation of the upper and lower tract with appropriate studies which can include imaging suchas CT, MRI or ultrasounds, urine studies and possible cystoscopy. Most of the causes are not significant and often nothing is found. Leading causes include infection, stones, and tumors. We have the reports of the CT imaging without identifying any clear cause of the blood or right flank pain. I will recommend a cystoscopy with bilateral retrograde pyelograms for further evaluation. We also will get a urine culture and PSA testing. Current Medications Current Outpatient Medications Medication Sig Dispense Refill Fiz Verio w/Device Kit Use 4 times a day E11.9 1 Kit 0 OneTouch Verio In Vitro Strip (Glucose Blood) Use 4 times a day E11.9 100 Strip 11 OneTouch Delica Lancets 30G Route: Use as directed 4 times a day. E11.9 400 Each 3 OneTouch Delica Lancets 30G Use as directed 4 times a day 200 Each 5 Benzonatate 200 MG Oral Capsule Take 1 Cap by mouth 3 times a day as needed for Cough. 50 Cap 1 metFORMIN HCl 1000 MG Oral Tablet (Glucophage) Take 1 Tab by mouth 2 times a day with morning and evening meals. 180 Tab 3 Omeprazole 20 MG Oral Capsule Delayed Release (PriLOSEC) Take 1 Cap by mouth daily. 90 Cap 3 Atorvastatin Calcium 20 MG Oral Tablet (Lipitor) TAKE 1 TABLET BY MOUTH EVERY DAY 90 Tablet 1 Lisinopril 10 MG Oral Tablet (Prinivil) One pill by mouth once a day 90 Tablet 1 No current facility-administered medications for this visit. Allergies Review of patient's allergies indicates: No Known Allergies Social History: Social History - Alcohol and Tobacco Use Social History Tobacco Use Smoking status: Every Day Packs/day: 1.50 Years: 13.00 Additional pack years: 0.00 Total pack years: 19.50 Types: Cigarettes Smokeless tobacco: Never Tobacco comments: pt wants to talk to the Dr about lambert Substance Use Topics Alcohol use: Never Comment: occasionally Vaping History Vaping/E-Cigarette Use Vaping/E-Cigarette Use Never User Vaping History Vaping/E-Cigarette Substances Vaping History Vaping/E-Cigarette Devices Past Surgical History Past Surgical History: Procedure Laterality Date HAND/FINGER SURGERY NEC 2002 cut on saw, L thumb Problem List Patient Active Problem List Diagnosis Code Obesity, Class II, BMI 35-39.9, isolated (see actual BMI) E66.9 Tobacco use disorder F17.200 Dyslipidemia, goal LDL below 100 E78.5 JONAS (obstructive sleep apnea) G47.33 HTN, goal below 140/90 I10 Daytime somnolence R40.0 Morbid obesity due to excess calories ([facility]) E66.01 Type 2 diabetes mellitus with hemoglobin A1c goal of less than 7.0% (HCC) E11.9 HTN, goal below 130/80 I10 Body mass index (BMI) of 40.0 to 44.9 in adult ([facility]) Z68.41 Past Surgical History: no changes Past Medical History: no changes Patient's Family History: no changes GENERAL EXAM: Alert and oriented x3 and no acute distress ABDOMEN: negative, Abdomen soft, non-tender. BS normal, No masses, organomegaly, hernia RECTAL EXAM: normal seminal vesicles, no rectal masses, prostate 35 gm benign. GENITAL EXAM: MALE Testes Descended , Testes W/O Lesions, Penis W/O Lesions, Penis Circumcised, andScrotum Normal Impression/Plan: He has right flank pain and gross hematuria without clear cause. He is a smoker and he does have a small non obstructing stone on the left. I will recommend getting a urine culture and PSA test and other labs for pre operative testing before we do a cystoscopy with bilateral retrograde pyelogram. The general information alternatives and risks of this procedure were explained and understood in detail. Bud Caldera Jr, MD 7:51 AM 06/24/2023In And Out Surgery Nothing to eat or drink after midnight the night prior to surgery Urine culture negative U/A 3-5 RBC/HPF documented in this encounter Nursing Notes * Umu Padilla RN - 07/21/2023 11:[address] Cespedes with anesthesia notified of Patients BP prior to discharge. Patient re-educated about need to follow up with PCP and take prescribed medications daily. Home dose of lisinopril ordered and to be given. * Umu Padilla RN - 07/21/2023 11:48 AM EST [address] [address] SameDay Surgery Discharge Note Name: Bennie Cohen Date: 07/21/2023 Time: 11:48 AM Discharge Disposition: Home Responsible adult as escort home: Mary Transport Mode: Ambulatory Accompanied by: Yehuda Padilla RN To: Car Belongings with patient: Yes Patient meets criteria to be transferred or discharged. * Lis Salazar RN - 06/25/2023 10:48 AM EST Patient identified by: name/birthdate Person taught: Patient Optime case procedure confirmed with patient/parent/guardian - no consent signed. Laterality confirmed as Bilateral Surgery date at time of Pre-Surgery Center Encounter: 07/21/2023. What procedure is patient having? UROGRAHY, RETROGRADE, WITH OR WITHOUT KUB ([id number]) In an emergency, is patient willing to accept blood products or blood transfusion? Unknown. Do you need to place a blood bank order? No Anesthesia consent pool notified? N/A Anesthesia evaluation requested per case documentation? No Preop Evaluation Requested? No PATIENT EDUCATION SCREENING Person taught: Patient Motivation Level: Asks Questions and Eager to Learn Language Barrier: No Physical Barrier: N/A METHOD: Lecture-telephone interview Patient Preferred Learning Methods: Lecture-Telephone interview Health History interview completed, questions answered, and the following patient instructions provided via telephone interview: Preoperative bathing instructions General preoperative instructions Medication instructions NPO instructions - If your normal morning routine take Atorvastatin and Prilosec the morning of surgery. If you takemetformin, hold it the evening before surgery as well. No tobacco products after midnight. OUTCOME: State / Describe / Explain and Needs Reinforcement documented in this encounter OR Notes * OR Surgeon - Bud Caldera Jr., MD - 07/21/2023 10:56 AM EST [facility]-[address] [address] OPERATIVE REPORT Name: Bennie Cohen Date: 07/21/2023 Time: 10:54 AM Location: [facility] Service: Urology Date of Operation: 07/21/2023 Pre-op Diagnosis: hematuria Post-op Diagnosis: same Operation: cystoscopy with bilateral retrograde pyelogram Surgeon: Bud Caldera Jr., MD Assistants: None Anesthesia: Monitored Local Anesthesia with Sedation Drains: none Estimated Blood Loss: 0 ml. IV Fluids: 300 ml. Urine Output: N/A Specimens/Disposition: None Apparent Intraoperative Complications: NONE Patient Condition: good Disposition: Post Anesthesia Care Unit Attestation: I performed the procedure Findings: He had normal urethra prostate and bladder with a clear efflux from each ureteral orificeand no evidence of filling defects within either ureter or collecting system bilaterally. Indications: This is a gentleman with a history of gross hematuria and microscopic hematuria with smoking history poorly controlled diabetes and hypertension and coming in for a hematuria evaluation with cystoscopy and bilateral retrograde pyelogram. The general information alternatives and risks of this procedure were explained and understood in detail. His initial CT scan did indicate a small nonobstructing stone on the left side and he had pain on the right side but no abnormalities were noted on that side. Procedure: The patient was taken to the operating room and identified and a surgical time-out was taken he would received IV Ancef he had SCDs and all the appropriate personnel and equipment were available. He was put under IV sedation and put in lithotomy position prepped and draped secured in a standard sterile fashion with pressure points well padded we began with cystoscopy in the urethra he had a normal-appearing urethra minimal BPH and no evidence of any filling defects within the bladderor any erythema or other suspicious lesions. Both ureteral orifices were identified and had clear efflux we cannulated the right ureteral orifice and used a small amount of dilute dye identifying a normal caliber ureter throughout and no evidence of filling defect in the upper collecting system. Werepeated the process on the left side again finding no evidence of any ureteral defects or filling defects within the upper portion of the collecting system. The bladder was drained the patient tolerated it well and be sent home p.r.n. pain medications with no significant findings and was instructed to discuss his poor hypertension and diabetes management with his PSA PCP as soon as possible. * Operative Report Brief - Bud Caldera Jr., MD - 07/21/2023 10:54 AM EST [facility]-[address] [address] OPERATIVE REPORT - BRIEF Name: Bennie Cohen Date: 07/21/2023 Time: 10:54 AM Location: [facility] Service: Urology Date of Operation: 07/21/2023 Pre-op Diagnosis: hematuria Post-op Diagnosis: same Operation: cystoscopy with bilateral retrograde pyelogram Surgeon: Bud Caldera Jr., MD Assistants: None Anesthesia: Monitored Local Anesthesia with Sedation Drains: none Estimated Blood Loss: 0 ml. IV Fluids: 300 ml. Urine Output: N/A Specimens/Disposition: None Apparent Intraoperative Complications: NONE Patient Condition: good Disposition: Post Anesthesia Care Unit Attestation: I performed the procedure documented in this encounter Plan of Treatment Health Maintenance Due Date Last Done Comments DISCUSS TOBACCO CESSATION (REFER TO SMARTSET #7818) 1983 Hepatitis B (1 of 3 - 3-dose series) 1983 Pneumococcal Vaccine: Pediatrics (0 to 5 Years) and At-Risk Patients (6 to 64 Years) (1 - PCV) 08/18/1989 Diabetic Eye Exam 08/18/2001 DTaP,Tdap,and Td Vaccines (1 - Tdap) 08/18/2002 Depression Screening 07/31/2018 07/31/2017 HbA1c 12/25/2021 06/27/2021, 01/18/2021 Albumin/Creatinine Ratio 06/27/2022 06/27/2021 Diabetic Foot Exam 06/27/2022 06/27/2021 COVID-19 Vaccine (3 - season) 2023 10/25/2020, 09/28/2020 Influenza Vaccine (FLU shot) (#1) 2023 04/12/2021 GFR 07/16/2024 07/16/2023, 06/09, 01/18/2021, Additional history exists GARDASIL-HPV IMMUNIZATION SERIES Aged Out No longer eligible based on patient's age to complete this topic MENINGOCOCCAL (MENACTRA/MENVEO) Aged Out No longer eligible based on patient's age to complete this topic documented as of this encounter Medical Devices Not on filedocumented as of this encounter Procedures Procedure Name Priority Date/Time Associated Diagnosis Comments XR RETROGRADE URETHROGRAM IN OR - TECH CHARGE Routine 07/21/2023 10:55 AM EST GLUCOSE METER, POINT OF CARE TOVA 07/21/2023 9:37 AM EST documented in this encounter Results * XR RETROGRADE URETHROGRAM IN OR - TECH CHARGE (07/21/2023 10:55 AM EST) Narrative Scheduling, Silent - 07/21/2023 10:55 AM EST This procedure will not be read by a Radiologist. Please see operative note. Bud Caldera Jr., MD RADIOLOGY ([facility]) * (ABNORMAL) GLUCOSE METER, POINT OF CARE (07/21/2023 9:37 AM EST) Glucose Meter 158(H) 70 - 120 mg/dL 07/21/2023 9:40 AM EST [facility] Blood Whole blood specimen / Unknown 07/21/2023 9:37 AM EST 07/21/2023 9:40 AM EST Bud Caldera Jr., MD LAB POINT OF C ARE TEST DOCKED DEVICE UNSOLICITED RESULTS [facility] [address] [place] [address] documented in this encounter Visit Diagnoses Diagnosis Hematuria, gross Gross hematuria Acute right flank pain Abdominal pain, unspecified site documented in this encounter Administered Medications Inactive Administered Medications - up to 3 most recent administrations Medication Order MAR Action Action Date Dose Rate Site isolyte-S pH 7.4 infusion Intravenous, at 10 mL/hr, Plasma-LYTE 148, isolyte-S, and isolyte-S pH 7.4 are considered equivalent - including for MAR barcode scanning., CONTINUOUS, Starting on Fri07/21/23 at 1015, Until Fri07/21/23 at 1707, Pre-Op Restarted 07/21/2023 10:45 AM EST Continue from Pre-Op 07/21/2023 10:27 AM EST 10 mL/hr New Bag 07/21/2023 9:41 AM EST 10 mL/hr Lisinopril (Prinivil) tab 10 mg 10 mg, Oral, ONCE, On Fri07/21/23 at 1230, For 1 dose Given 07/21/2023 12:06 PM EST 10 mg documented in this encounter Active and Recently Administered Medications Times are shown in EST. Scheduled Medication Order 07/19/2023 07/20/2023 07/21/2023 ceFAZolin in dextrose (Ancef) ivpb 2 g (COMPLETED) 2 g, IV Piggyback, ONCE, 1 dose, On Fri07/21/23 at 1045 1031 (Given - Provid er: Linda Nelson CRNA) Lisinopril (Prinivil) tab 10 mg (COMPLETED) 10 mg, Oral, ONCE, On Fri07/21/23 at 1230, For 1 dose 1206 (Given - Provid er: Umu Padilla RN) Continuous Medication Order 07/19/2023 07/20/2023 07/21/2023 isolyte-S pH 7.4 infusion Intravenous, at 10 mL/hr, Plasma-LYTE 148, isolyte-S, and isolyte-S pH 7.4 are considered equivalent - including for MAR barcode scanning., CONTINUOUS, Starting on Fri07/21/23 at 1015, Until Fri07/21/23 at 1707, Pre-Op 0941 (New Bag - Prov ider: Umu Padilla, VINICIO)1027 (Continue from Pre-Op - Provider: Linda Nelson CRNA)1044 (Paused - Provider: Linda Nelson CRNA - Comment: Switch to gravity)1045 (Restarted - Provider: Linda Nelson CRNA) PRN Medication Order 07/19/2023 07/20/2023 07/21/2023 Ioversol (Optiray 320) inj (CANCELED) ONCE PRN INTRA PROCEDURE, Starting on Fri07/21/23 at 1050, Until Fri07/21/23 at 1057, Intra-Op 1050 (Given - Provid er: Bud Caldera Jr., MD) sodium chloride IR 0.9 % irrigation (CANCELED) ONCE PRN INTRA PROCEDURE, Starting on Fri07/21/23 at 1050, Until Fri07/21/23 at 1057, Intra-Op 1050 (Given - Provid er: Bud Caldera Jr., MD - Comment: bladder) documented in this encounter Advance Directives Latest Code Status on File Code Status Date Activated Date Inactivated Comments Full Code 07/21/2023 10:59 AM 07/21/2023 5:07 PM This order reflects the patients wishes and were consensually agreed upon. Question Answer Comments Discussion of Advance Directives occurred with: Not Discussed due to patient's condition Care Teams Rigger Third Relationship Specialty Start Date End Date Zach Ca DO [address] [facility] [place] [place] [address] PCP - General Family Medicine 10/26/10 documented as of this encounter
--- OUTSIDE RECORDS SUMMARY | 2023-10-08 18:00 | External Medical Summary ---
Author Name Unknown Address Unknown Organization : Laboratory Report Ordering Provider Test Date Status TIANA PEREZ JR 07/21/2023 09:37:53 Final Observation Date Value Abnormality Reference (Units ) Status Glucose Point of Care 07/21/2023 09:37:53 158 Above high normal 70-120 (mg/dL) Final Performing Location
--- OUTSIDE RECORDS SUMMARY | 2023-10-08 18:00 | External Medical Summary | Summary of Care ---
Author Name Unknown Organization [facility] [address] [place] [address] Phone [phone] Care Team Providers Care Wrapping Machine Operator Name Role Phone PhilipErika may Primary Care Provider Encounter Details Date Type Department Care Team (Late st Contact Info) Description 09/17/2023 2:00 PM EDT Office Visit Audiology [facility] [address] [place] [address] Kalie Kaye [place]Christy [address] [place] [address] Conductive hearing loss of both ears* Allergies No known active allergiesdocumented as of this encounter (statuses as of 09/17/2023) Medications Medication Sig Dispensed Refills Start Date [...] 5 01/25/2021 Active Benzonatate 200 MG Oral CapsuleIndications:C ough Take 1 Cap by mouth 3 times a day as needed for Cough. 50 Cap 1 03/12/2021 Active Additional Information Patient not taking.Reported on 06/24/2023 metFORMIN HCl 1000 MG Oral Tablet (Glucophage)Indicati ons:Type 2 diabetes mellitus with hemoglobin A1c goal of less than 7.0% (HCC) Take 1 Tab by mouth 2 times a day with morning and evening meals. 180 Tab 3 04/12/2021 Active Omeprazole 20 MG Oral Capsule Delayed Release (PriLOSEC)Indication s:Gastric hyperacidity Take 1 Cap by mouth daily. 90 Cap 3 04/12/2021 Active Atorvastatin Calcium 20 MG Oral Tablet (Lipitor)Indications :Dyslipidemia, goal LDL below 100 TAKE 1 TABLET BY MOUTH EVERY DAY 90 Tablet 1 07/16/2021 Active Lisinopril 10 MG Oral Tablet (Prinivil)Indication s:HTN, goal below 130/80 One pill by mouth once a day 90 Tablet 1 01/23/2022 Active Albuterol Sulfate 2.5 MG/0.5ML Inhalation Nebulization Solution (Proventil) Inhale 0.5 mL via nebulizer. 0 Active CPAP every night at bedtime. 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 Dyslipidemia, goal LDL below 100 07/09/2013 Obesity, Class II, BMI 35-39.9, isolated (see ac tual BMI) 07/12/2011 Overview: BMI= 37.20 07/12/11 Tobacco use disorder 07/12/2011 documented as of this encounter (statuses as of 09/17/2023) Resolved Problems Problem Noted Date Diagnosed Date Resolved Date Chest pain 02/02/2014 05/25/2019 Dyslipidemia, goal to be determined 02/02/2014 05/25/2019 Hyperlipidemia 07/09/2013 07/09/2013 HTN, goal below 130/80 07/09/201308/23 Cough 07/12/2011 05/25/2019 Acute sinusitis 07/12/2011 05/25/2019 Acute bronchitis, complicated 07/12/2011 05/25/2019 Tobacco use disorder 11/02/2010 012 Chronic bronchitis, simple 11/02/2010 1 07/26/2018 documented as of this encounter (statuses as of 09/17/2023) Immunizations Name Administration Dates Next Due COVID-19 mRNA, LNP-s, No Pre serve, 2-Dose Series (Sysorex) 10/25/2020,09/28/2020 Seasonal Influenza, PF, 6 M & above, IM , (FluLaval or Fluzone) 04/12/2021 documented as of this encounter Social History Tobacco Use Types Packs/Day Years Used Date Smoking Tobacco: Every Day Cigarettes 2 13 Smokeless Tobacco: Never Comments:pt wants to talk [...] on file documented as of this encounter Progress Notes * Kalie Kaye Au.D. - 09/17/2023 2:03 PM EDT Images from the original note were not included. Bennie Cohen, 38 year old was seen for an audiologic evaluation with a primary complaint of decreased hearing sensitivity. 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 Referred by: Erika Sebastian DO Audiologic/Otologic History: Case historian: Patient Hearing loss: gradual onset, feels slowly getting worse- missing soft spoken sounds and words. 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 TMs are intact. Tympanometry 84233 See scanned results Right: WNL for static admittance, tympanometric peak pressure, equivalent volume, and tympanic width("Type A") Left: WNL for static admittance, tympanometric peak pressure, equivalent volume, and tympanic width("Type A") Standard Audiometric Testing 28099 ABSD, supra-aural earphones earphones, Good reliability Right: Low to mid frequency conductive hearing loss Left: Low to mid frequency conductive hearing loss Speech recognition thresholds were consistent with hearing thresholds. Word recognition scores, obtained via monitored live voice were: right 100%, left 96% Impression: Bilateral conductive hearing loss Recommendations: Audiology services as needed., Audiologic monitoring of this identified hearing loss, and Evaluation by an Ear, Nose, and Throat physican Vivi Barber, CCC-A Scan: audiogram, tympanograms cc: Erika Sebastian DO documented in this encounter Plan of Treatment Upcoming Encounters Date Type Department Care Team (Late st Contact Info) Description 09/18/2023 6:40 PM EDT Office Visit [facility] [address] [place] [address] Roland Reed MD [address] [place] [address] Health Maintenance Due Date Last Done Comments DISCUSS TOBACCO CESSATION (REFER TO SMARTSET #[id number]) 1983 Pneumococcal Vaccine: Pediatrics (0 to 5 Years) and At-Risk Patients (6 to 64 Years) (1 of 2 - PCV) 08/18/1989 Diabetic Eye Exam 08/18/2001 DTaP,Tdap,and Td Vaccines (1 - Tdap) 08/18/2002 Hepatitis B (1 of 3 - 19+ 3-dose series) 08/18/2002 Depression Screening 07/31/2018 07/31/2017 HbA1c 12/25/2021 06/27/2021, 01/18/2021 Albumin/Creatinine Ratio 06/27/2022 06/27/2021 Diabetic Foot Exam 06/27/2022 06/27/2021 COVID-19 Vaccine (3 - season) 2023 10/25/2020, 09/28/2020 Influenza Vaccine (FLU shot) (Season Ended) 2024 04/12/2021 GFR 07/16/2024 07/16/2023, 06/09, 01/18/2021, Additional history exists Lipid Panel 06/27/2026 06/27/2021, 07/11, 07/31/2017, Additional history exists GARDASIL-HPV IMMUNIZATION SERIES Aged Out No longer eligible based on patient's age to complete this topic MENINGOCOCCAL (MENACTRA/MENVEO) Aged Out No longer eligible based on patient's age to complete this topic documented as of this encounter Medical Devices Not on filedocumented as of this encounter Procedures Procedure Name Priority Date/Time Associated Diagnosis Comments AUDIOMETRIC RESULT 09/17/2023 AUDIOMETRIC RESULT 09/17/2023 documented in this encounter Results * AUDIOMETRIC RESULT (09/17/2023) 09/17/2023 [facility] * AUDIOMETRIC RESULT (09/17/2023) 09/17/2023 [facility] documented in this encounter Visit Diagnoses Diagnosis Conductive hearing loss of both ears- Primary Conductive hearing loss, bilateral documented in this encounter Advance Directives Latest Code Status on File Code Status Date Activated Date Inactivated Comments Full Code 07/21/2023 10:59 AM 07/21/2023 5:07 PM This order reflects the patients wishes and were consensually agreed upon. Question Answer Comments Discussion of Advance Directives occurred with: Not Discussed due to patient's condition Care Teams Wrapping Machine Operator Relationship Specialty Start Date End Date Erika Sebastian DO [address] [place] [address] PCP - General Family Medicine 10/26/10 documented as of this encounter
--- OUTSIDE RECORDS SUMMARY | 2023-10-08 18:00 | External Medical Summary ---
Author Name Unknown Address Unknown Organization [id number]:[facility] [place] - [address] [place] [address] Laboratory Report Ordering Provider Test Date Status ANGELA KENNEDY 09/18/2023 19:26:02 Final Normal: <30 mg/g creatinine< br/>High: 30-300 mg/g creatinine
Very High: >300 mg/g creatinine
Nephrotic: >2200 mg/g creatinine Observation Date Value Abnormality Reference (Units ) Status Albumin, Urine 09/18/2023 19:26:02 28.64 (mg/dL) Final Creatinine, Urine 09/18/2023 19:26:02 266 (mg/dL) Final Albumin/Creatinine [Mass Ratio] in Urine 09/18/2023 19:26:02 108 Above high normal <30 (mg/g Creat) Final Performing Location [facility] [place] - [address] [place] [address]
--- OUTSIDE RECORDS SUMMARY | 2023-10-08 18:00 | External Medical Summary | Summary of Care ---
Author Name Unknown Organization [facility] Address [address] [place] [address] Phone [phone] Care Team Providers Care Car Runner Name Role Phone Erika Sebastian Primary Care Provider + [phone] Reason for Visit * Reason Comments Status Check Pt here today for a "random" check up per pt. Need a referral for ear doctor and renew med. Encounter Details Date Type Department Care Team (Late st Contact Info) Description 09/18/2023 6:40 PM EDT Office Visit [facility] [address] [place] [address] Roland Reed MD [address] [place] [address] Type 2 diabetes mellitus with hemoglobin A1c goal of less than 7.0% ([facility])*; HTN, goal below 130/80; Dyslipidemia, goal LDL below 100; Gastric hyperacidity; Tobacco use disorder; JONAS (obstructive sleep apnea); Body mass index (BMI) of 40.0 to 44.9 in adult ([facility]); Morbid obesity due to excess calories ([facility]) Allergies No known active allergiesdocumented as of this encounter (statuses as of 09/19/2023) Medications Medication Sig Dispensed Refills Start Date End Date Status Michelle Montes De Oca Lancets 30GIndications:Ty pe 2 diabetes mellitus with hemoglobin A1c goal of less than 7.0% (HCC) Use as directed 4 times a day 200 Each 5 01/25/2021 Active Albuterol Sulfate 2.5 MG/0.5ML Inhalation Nebulization Solution (Proventil) Inhale 0.5 mL via nebulizer. 0 Active CPAP every night at bedtime. Unknown dose 0 Active Atorvastatin Calcium 20 MG Oral Tablet (Lipitor)Indicati ons:Dyslipidemia, goal LDL below 100 Take 1 Tablet by mouth in the morning. 90 Tablet 3 09/18/2023 Active metFORMIN HCl 1000 MG Oral Tablet (Glucophage)Indic ations:Type 2 diabetes mellitus with hemoglobin A1c goal of less than 7.0% ([facility]) Take 1 Tablet by mouth 2 times a day with morning and evening meals. 180 Tablet 3 09/18/2023 Active Omeprazole 20 MG Oral Capsule Delayed Release (PriLOSEC)Indicat ions:Gastric hyperacidity Take 1 Capsule by mouth in [...] day E11.9 1 Kit 0 09/18/2023 Active Lisinopril-hydroC HLOROthiazide 10-12.5 MG Oral Tablet Take 1 Tablet by mouth in the morning. 90 Tablet 3 09/18/2023 Active Varenicline Tartrate 0.5 MG Oral Tablet (Chantix) Take 1 Tablet by mouth daily for 7 days, THEN 1 Tablet 2 times a day for 21 days. 49 Tablet 0 09/18/2023 10/16/19 24 Active OneTouch Verio w/Device Kit Use 4 times a day E11.9 1 Kit 0 01/22/2021 09/18/19 24 Discontinued(Ref ill) OneTouch Verio In Vitro Strip (Glucose Blood) Use 4 times a day E11.9 100 Strip 11 01/22/2021 09/18/19 24 Discontinued(Ref ill) OneTouch Delica Lancets 30G Route: Use as directed 4 times a day. E11.9 400 Each 3 01/24/2021 09/18/19 24 Discontinued(Ref ill) Benzonatate 200 MG Oral CapsuleIndication s:Cough Take 1 Cap by mouth 3 times a day as needed for Cough. 50 Cap 1 03/12/2021 09/18/19 24 Discontinued(Pat ient preference/disco ntinuation) metFORMIN HCl 1000 MG Oral Tablet (Glucophage)Indic ations:Type 2 diabetes mellitus with hemoglobin A1c goal of less than 7.0% (HCC) Take 1 Tab by mouth 2 times a day with morning and evening meals. 180 Tab 3 04/12/2021 09/18/19 24 Discontinued(Ref ill) Omeprazole 20 MG Oral Capsule Delayed Release (PriLOSEC)Indicat ions:Gastric hyperacidity Take 1 Cap by mouth daily. 90 Cap 3 04/12/2021 09/18/19 24 Discontinued(Ref ill) Atorvastatin Calcium 20 MG Oral Tablet (Lipitor)Indicati ons:Dyslipidemia, goal LDL below 100 TAKE 1 TABLET BY MOUTH EVERY DAY 90 Tablet 1 07/16/2021 09/18/19 24 Discontinued(Ref ill) Lisinopril 10 MG Oral Tablet (Prinivil)Indicat ions:HTN, goal below 130/80 One pill by mouth once a day 90 Tablet 1 01/23/2022 09/18/19 24 Discontinued documented as of this encounter (statuses as of 09/19/2023) Active Problems Problem Noted Date Diagnosed Date [...] 09/14/13 -- AHI 4.5, RDI 7.0 DME: DEMI CHEF Dyslipidemia, goal LDL below 100 07/09/2013 Tobacco use disorder 07/12/2011 documented as of this encounter (statuses as of 09/19/2023) Resolved Problems Problem Noted Date Diagnosed Date [...] as of this encounter (statuses as of 09/19/2023) Immunizations Name Administration Dates Next Due COVID-19 mRNA, LNP-s, No Pre serve, 2-Dose Series ([employer]) 10/25/2020,09/28/2020 Seasonal Influenza, PF, 6 M & above, IM , (FluLaval or Fluzone) 04/12/2021 documented as of this encounter Social History Tobacco Use Types Packs/Day Years Used Date Smoking Tobacco: Every Day Cigarettes 2 13 Passive Smoke Exposure: Current Smokeless Tobacco: Never Tobacco Cessation:Ready to Q [...] Sign Reading Time Taken Comments Blood Pressure 142/90 09/18/2023 6:59 PM EDT Pulse 94 09/18/2023 6:59 PM EDT Temperature 37.3 C (99.1 F) 09/18/2023 6:59 PM ED T Respiratory Rate 18 09/18/2023 6:59 PM EDT Oxygen Saturation 94% 09/18/2023 6:59 PM EDT Inhaled Oxygen Concentration - - Weight 114.6 kg (252 lb 9.6 oz) 09/18/2023 6:59 PM EDT Height - - Body Mass Index 43.36 06/25/2023 10:37 AM EST documented in this encounter Patient Instructions * Patient Instructions* Carolyn Ledesma LPN - 09/18/2023 7:05 PM EDT Diabetes: Keeping Feet Healthy Inspect your feet every day for signs of a problem. Diabetes can damage nerves in your feet and cause neuropathy. This condition makes it hard for you to feel injuries or sore spots. Diabetes can also change blood flow, making it harder for small problems, like a blister, to heal properly. In fact, minor injuries can quickly become serious infections that send you to the hospital. Practice self-care to protect your feet and keep them healthy. Take Special Care Inspect your feet daily for problems such as redness, blisters, cracks, dry skin, or numbness. Use a mirror to see the bottoms of your feet. Or, ask for help. Manage your diabetes. Monitor and control your blood sugar. Take all your medications as prescribed. Avoid walking barefoot, even indoors. Wash your feet with warm water and mild soap. Dry well, especially between toes. Dont treat corns or calluses yourself. Talk to your doctor or electric truck driver (a doctor who specializes in foot care) if you need assistance trimming your toenails. Use moisturizing cream or lotion if you have dry skin, but dont use it between toes. Dont use heating pads on your feet. If you have neuropathy, you could get a burn and not feel it. Stop smoking. Smoking restricts blood flow and can make it harder for wounds to heal. Have Regular Checkups Foot problems can develop quickly. So be sure to follow your healthcare teams schedule for regular checkups. During office visits, take off your shoes and socks as soon as you get in the exam room. Ask your healthcare provider to examine your feet for problems. This will make it easier to find and treat small skin irritations before they get worse. Regular checkups can also help keep track of the blood flow and feeling in your feet. If you have neuropathy, you may need to have checkups more often. Wear Proper Footwear Wearing proper footwear is very important. If areas of your feet have been damaged by too much pressure, your healthcare provider may recommend changing your footwear. In some cases, avoiding high heels or tight work boots may be all thats needed. Or, your healthcare provider may recommend special shoes or custom inserts. These help protect your feet and keep existing irritations from getting worse. If you need special footwear, ask your healthcare provider if you qualify for [employer] diabetic shoe program. Make Sure Shoes and Socks Fit Any pair of shoes--new or old--should feel comfortable as soon as you put them on. There shouldnt be any rubbing when you walk. Wear the right shoe for any activity. For instance, a running shoe is designed to keep your feet injury-free while jogging. Buy shoes at the end of the day, when your feet are larger. Make sure they provide support without feeling too loose. Make sure your socks fit, t oo. Wear soft, seamless, well-padded socks for activity. Cotton or microfiber socks are best to help to absorb sweat. To protect your feet, avoid shoes that are open-toed or open-heeled. If you have questions about what kinds of shoes and socks are best, talk to your healthcare team. Get Regular Exercise Regular exercise improves blood flow in your feet. It also increases foot strength and flexibility.Gentle exercises, like walking or riding a stationary bicycle, are best. You can also do special foot exercises. Just be sure to talk with your healthcare provider before starting any exercise program. Also mention if any exercise causes pain, redness, or other signs of foot problems. Note: If you have any kind of break in the skin of your foot or ankle, keep the area clean. Then call your doctor--especially if the area doesnt appear to be healing. [id number] [employer], [address] [place] [address], [place] [address]. All rights reserved. This information is not intended as a substitute for professional medical care. Always follow your healthcare professional's instructions. documented in this encounter Progress Notes * Roland Reed MD - 09/18/2023 7:19 PM EDT Subjective Bennie Cohen is a 38 year old male. Chief Complaint Patient presents with Status Check Pt here today for a "random" check up per pt. Need a referral for ear doctor and renew med. HPI: Patient is new here for PCP establishment and for medical management of known PMH as below. Known HTN, obesity , JONAS , type 2 DM , HL Couldn't take med last a few months But will resume Took lisinopril 10 mg ( from family's Poor diet, soda, energy drinks , Weight gain, BMI 43 Known JONAS on CPAP but not daily use Type 2 DM, resuming metformin Smoking, would like to stop Will try chantix PMH: Patient Active Problem List Diagnosis Code Tobacco use disorder F17.200 Dyslipidemia, goal LDL below 100 E78.5 JONAS (obstructive sleep apnea) G47.33 Daytime somnolence R40.0 Morbid obesity due to excess calories ([facility]) E66.01 Type 2 diabetes mellitus with hemoglobin A1c goal of less than 7.0% ([facility]) E11.9 HTN, goal below 130/80 I10 Body mass index (BMI) of 40.0 to 44.9 in adult ([facility]) Z68.41 Hematuria, gross R31.0 Current Outpatient Medications Medication Sig Dispense Refill OneTouch Delica Lancets 30G Use as directed 4 times a day 200 Each 5 CPAP every night at bedtime. Unknown dose Atorvastatin Calcium 20 MG Oral Tablet (Lipitor) Take 1 Tablet by mouth in the morning. 90 Tablet 3 metFORMIN HCl 1000 MG Oral Tablet (Glucophage) Take 1 Tablet by mouth 2 times a day with morning and evening meals. 180 Tablet 3 Omeprazole 20 MG Oral Capsule Delayed Release (PriLOSEC) Take 1 Capsule by mouth in the morning. 90Capsule 3 OneTouch Delica Lancets 30G Route: Use as directed 4 times a day. E11.9 400 Each 3 OneTouch Verio In Vitro Strip (Glucose Blood) Use 4 times a day E11.9 100 Strip 11 OneTouch Verio w/Device Kit Use 4 times a day E11.9 1 Kit 0 Lisinopril-hydroCHLOROthiazide 10-12.5 MG Oral Tablet Take 1 Tablet by mouth in the morning. 90 Tablet 3 Varenicline Tartrate 0.5 MG Oral Tablet (Chantix) Take 1 Tablet by mouth daily for 7 days, THEN 1 Tablet 2 times a day for 21 days. 49 Tablet 0 Albuterol Sulfate 2.5 MG/0.5ML Inhalation Nebulization Solution (Proventil) Inhale 0.5 mL via nebulizer. (Patient not taking: Reported on 09/18/2023) No current facility-administered medications for this visit. Past Medical History: Diagnosis Date Chronic bronchitis, simple (HCC) DM2 (diabetes mellitus, type 2) (HCC) GERD (gastroesophageal reflux disease) HLD (hyperlipidemia) HTN (hypertension) JONAS (obstructive sleep apnea) Past Surgical History: Procedure Laterality Date DENTAL SURGERY PROCEDURE NEC FLUORO PYELOGRAM RETROGRADE Bilateral 07/21/2023 UROGRAHY, RETROGRADE, WITH OR WITHOUT KUB performed by Bud Caldera Jr., MD at [facility] HAND/FINGER SURGERY NEC 06/09/2002 cut on saw, L thumb Review of patient's allergies indicates: No Known Allergies Family History Problem Relation Age of Onset Hypertension Father Arthritis Father No Past Hx Mother Cancer Grandmother (Maternal) Lung Cancer, smoker Heart Disorder Grandmother (Paternal) of [place] Cancer Aunt (Unspecified) Lung Cancer Family Status Relation Status Fa (Not Specified) Mo (Not Specified) MGMA (Not Specified) PGMA (Not Specified) AUNT (Not Specified) Social History Socioeconomic History Marital status: Spouse name: Not on file Number of children: Not on file Years of education: Not on file Highest education level: Not on file Occupational History Not on file Tobacco Use Smoking status: Every Day Current packs/day: 2.00 Average packs/day: 2.0 packs/day for 13.0 years (26.0 ttl pk-yrs) Types: Cigarettes Passive exposure: Current Smokeless tobacco: Never Tobacco comments: pt wants to talk to the Dr about chantix Vaping Use Vaping Use: Never used Substance and Sexual Activity Alcohol use: Yes Comment: occasionally Drug use: No Sexual activity: Not on file Other Topics Concern Not on file Social History Narrative Lives alone in [place] Has girlfriend Works at [employer] Social Determinants of Health Financial Resource Strain: Not on file Food Insecurity: Patient Declined (09/18/2023) Hunger Vital Sign Worried About Running Out of Food in the Last Year: Patient declined Ran Out of Food in the Last Year: Patient declined Transportation Needs: Not on file Physical Activity: Not on file Stress: Not on file Social Connections: Not on file Intimate Partner Violence: Not on file Housing Stability: Not on file Review of Systems Constitutional: Negative for activity change, appetite change, chills, diaphoresis, fatigue, fever and unexpected weight change (weight gain). HENT: Negative for hearing loss. Eyes: Negative for visual disturbance. Respiratory: Negative for cough, chest tightness, shortness of breath and wheezing. Cardiovascular: Positive for leg swelling (mild). Negative for chest pain and palpitations. Gastrointestinal: Negative for abdominal distention, abdominal pain, nausea and vomiting. Endocrine: Negative. Genitourinary: Negative for hematuria. Musculoskeletal: Negative for gait problem. Neurological: Negative for dizziness, weakness, light-headedness, numbness and headaches. Psychiatric/Behavioral: Positive for sleep disturbance. Negative for agitation and behavioral problems. Objective BP 142/90 | Pulse 94 | Temp 37.3 C (99.1 F) (Infrared ) | Resp 18 | Wt 114.6 kg (252 lb 9.6 oz)| SpO2 94% | BMI 43.36 kg/m | BSA 2.28 m Physical Exam Constitutional: General: He is not in acute distress. Appearance: Normal appearance. He is obese. He is not ill-appearing, toxic- appearing or diaphoretic. HENT: Head: Normocephalic and atraumatic. Nose: Nose normal. Eyes: Extraocular Movements: Extraocular movements intact. Cardiovascular: Rate and Rhythm: Normal rate and regular rhythm. Pulses: Normal pulses. Heart sounds: Normal heart sounds. No murmur heard. Pulmonary: Effort: Pulmonary effort is normal. No respiratory distress. Breath sounds: Normal breath sounds. No stridor. No wheezing, rhonchi or rales. Chest: Chest wall: No tenderness. Musculoskeletal: General: No tenderness. Right lower leg: No edema. Left lower leg: No edema. Neurological: General: No focal deficit present. Mental Status: He is alert and oriented to person, place, and time. Cranial Nerves: No cranial nerve deficit. Psychiatric: Mood and Affect: Mood normal. Behavior: Behavior normal. ASSESSMENT/PLAN: Type 2 diabetes mellitus with hemoglobin A1c goal of less than 7.0% ([facility]) (Primary) - TELEMEDICINE DIABETIC EYE - HEMOGLOBIN A1C; Future; Expected date: 09/18/2023 - ALBUMIN / CREATININE RATIO, URINE; Future; Expected date: 09/18/2023 - DIABETES FOOT EXAM - metFORMIN HCl 1000 MG Oral Tablet (Glucophage); Take 1 Tablet by mouth 2 times a day with morningand evening meals. - ALBUMIN / CREATININE RATIO, URINE HTN, goal below 130/80 - LIPID PANEL WITH DIRECT LDL IF TG IS HIGH; Future; Expected date: 09/18/2023 - COMPREHENSIVE METABOLIC PANEL; Future; Expected date: 09/18/2023 Dyslipidemia, goal LDL below 100 - Atorvastatin Calcium 20 MG Oral Tablet (Lipitor); Take 1 Tablet by mouth in the morning. - LIPID PANEL WITH DIRECT LDL IF TG IS HIGH; Future; Expected date: 09/18/2023 - COMPREHENSIVE METABOLIC PANEL; Future; Expected date: 09/18/2023 Gastric hyperacidity - Omeprazole 20 MG Oral Capsule Delayed Release (PriLOSEC); Take 1 Capsule by mouth in the morning. Tobacco use disorder JONAS (obstructive sleep apnea) Body mass index (BMI) of 40.0 to 44.9 in adult ([facility]) Morbid obesity due to excess calories ([facility]) Other orders - OneTouch Delica Lancets 30G; Route: Use as directed 4 times a day. E11.9 - OneTouch Verio In Vitro Strip (Glucose Blood); Use 4 times a day E11.9 - OneTouch Verio w/Device Kit; Use 4 times a day E11.9 - Lisinopril-hydroCHLOROthiazide 10-12.5 MG Oral Tablet; Take 1 Tablet by mouth in the morning. - Varenicline Tartrate 0.5 MG Oral Tablet (Chantix); Take 1 Tablet by mouth daily for 7 days, THEN 1 Tablet 2 times a day for 21 days. - URINALYSIS, REFLEX TO MICROSCOPIC; Future; Expected date: 09/18/2023 Follow Up: Return in about 2 weeks (around 10/02/2023) for Clinic Visit. | For: Clinic Visit F/u blood tests Diet change Stop smoking Resuming meds 2 wks fu Eye exam in 2 wks , BP check Roland Reed MD * Carolyn Ledesma LPN - 09/18/2023 6:58 PM EDT Images from the original note were not included. Socks and Shoes Removed for Annual Diabetic Foot Screening RIGHT FOOT: No Reddened, Cracking, Or Open Areas Noted. RIGHT Dorsalis Pedis Pulse: Palpable RIGHT Posterior Tibial Pulse: Palpable RIGHT Monofilament:Patient reports feeling monofilament pressure on plantar surface of foot LEFT FOOT: No Reddened, Cracking or Open Areas Noted. LEFT Dorsalis Pedis Pulse: Palpable LEFT Posterior Tibial Pulse: Palpable LEFT Monofilament:Patient reports feeling monofilament pressure on plantar surface of foot Do you need diabetic shoes: No DM Foot Exam completed today. Provider aware. Carolyn Ledesma LPN The importance of having a yearly diabetic eye exam has been discussed with patient. Order and/or Referral placed along with patient instructions. Provider made aware. Carolyn Ledesma LPN Diabetic Retinopathy: Evaluating Your Eyes Diabetic retinopathy is a condition that happens when diabetes damages blood vessels in the rear ofthe eye. It can lead to vision loss. To help catch it early, have a complete dilated eye exam at least once a year. During the exam, the eye healthcare provider will review your medical history, examine your eyes, and check your vision. Women who are and have pre-existing type 1 or type 2 diabetes have an increased risk of retinopathy. Women with diabetes should have an eye exam before or in the first trimester. They should continue to be monitored every trimester and for 1 year after delivery, depending on the severity of the retinopathy. The retina is the light-sensitive part of the eye that allows you to see. High blood sugar can damage blood vessels of the retina and cause them to leak or bleed. This damage can lead to abnormal blood vessel growth. This condition is called diabetic retinopathy. You may not have symptoms early in the disease. Later, there may be floaters, blurred vision, or poor night vision. There may also be partial or complete vision loss. Early cases of diabetic retinopathy can be treated by carefully controlling blood sugar, blood pressure, and cholesterol. Surgery or laser treatments may help restore lost vision. Laser surgery can shrink abnormal blood vessels or close ones that are leaking. Medicines injected in the eye can help decrease swelling of the retina. Home care Take all medicines, including insulin or oral diabetic medicine, exactly as prescribed. Follow the diet advised by your healthcare provider. If you have high cholesterol, follow a low-fat, low-cholesterol diet. Monitor blood sugars as advised. Try to achieve your ideal weight. If you smoke, quit smoking. Tobacco use worsens the effect of diabetes on your blood vessels. If you have high blood pressure, consider buying an automatic blood pressure machine. These are available at most pharmacies. Use this to monitor your blood pressure. Report your blood pressure readings to your healthcare provider. Exercise regularly. Follow-up care Follow up with your healthcare provider, or as advised. You must have a complete eye exam at least once a year, more often if needed. Untreated diabetic retinopathy can lead to complete loss of vision. Occupational therapists can help you adapt to any vision loss you have, including learning techniques to safely administer insulin. When to seek medical advice Call your healthcare provider right away if any of these occur. Increasing blurriness or any sudden changes in your vision Sudden flashes of light inside your eye New floaters (small dots or strings that seem to be moving across your field of vision) Eye pain, redness, or discharge from your eyelid New dark spots appearing in your field of vision Halos around lights Dimness of vision Partial or complete loss of vision Women with diabetes should have a complete eye exam before becoming , or as soon as possible when they find out they are . Retinopathy sometimes worsens during . Your eye exam Your eye healthcare provider uses an eye chart and other tools to check your vision. Then he or sheexamines your eyes for signs of disease. You are given eye drops to widen (dilate) your pupils. Youmay have one or more of the following tests: Tonometry to measure fluid pressure inside the eye. Slit lamp exam to allow the healthcare provider to view the structures of your eye. Ultrasound to create an image of the eye using sound waves. Ultrasound may be used if blood is found in the clear gel that fills the eye (vitreous). Ocular coherence tomography (OCT) to create an image of the retina using light waves. This shows ifthere is fluid leaking into certain parts of the eye. It can also measure the thickness of the retina. Fluorescein angiography This test may be done to check the health of the inside lining of the eye (retina). It also checks the tiny blood vessels (capillaries) that carry blood to the retina. During the test: Photographs are taken of the retina. A dye is then injected into the bloodstream through the arm or hand. The dye travels to the capillaries in the eye. More photographs are taken of the retina. The dye causes the capillaries to stand out on the photographs. You may feel brief nausea during the procedure. For a few hours after the test, your skin, eyes, and urine may appear yellow. Talk with your healthcare provider for more information about this test. Date Last Reviewed: 11/08/[id number] [employer]. [address] [place] [address], [place] [address]. All rights reserved. This information is not intended as a substitute for professional medical care. Always follow your healthcare professional's instructions. Hemoglobin a1c ordered today. Provider aware. Carolyn Ledesma LPN Urine albumin/creatinine ratio ordered today. Provider aware. documented in this encounter Nursing Notes * Carolyn Ledesma LPN - 09/18/2023 6:54 PM EDT Chief Complaint Patient presents with Status Check Pt here today for a "random" check up per pt. Need a referral for ear doctor and renew med. documented in this encounter Plan of Treatment Upcoming Encounters Date Type Department Care Team (Late st Contact Info) Description 10/02/2023 6:40 PM EDT Office Visit [facility] [address] [place] [address] Roland Reed MD [address] [place] [address] Pending Results Name Type Priority Associated Diagnoses Date /Time ALBUMIN / CREATININE RATIO, URINE Lab Routine Type 2 diabetes mellitus with hemoglobin A1c goal of less than 7.0% (HCC) 09/18/2023 7:26 PM EDT Scheduled Orders Name Type Priority Associated Diagnoses Orde r Schedule HEMOGLOBIN A1C Lab Routine Type 2 diabetes mellitus with hemoglobin A1c goal of less than 7.0% (HCC) Expected: 09/18/2023 (Approximate), Expires: 10/17/2024 ALBUMIN / CREATININE RATIO, URINE Lab Routine Type 2 diabetes mellitus with hemoglobin A1c goal of less than 7.0% (HCC) Expected: 09/18/2023, Expires: 09/17/2024 LIPID PANEL WITH DIRECT LDL IF TG IS HIGH Lab Routine HTN, goal below 130/80 Dyslipidemia, goal LDL below 100 Expected: 09/18/2023, Expires: 09/17/2024 COMPREHENSIVE METABOLIC PANEL Lab Routine HTN, goal below 130/80 Dyslipidemia, goal LDL below 100 Expected: 09/18/2023 (Approximate), Expires: 09/17/2024 URINALYSIS, REFLEX TO MICROSCOPIC Lab Routine Expected: 2023, Expires: 09/17/2024 Health Maintenance Due Date Last Done Comments DISCUSS TOBACCO CESSATION (REFER TO SMARTSET #8685) 1983 Pneumococcal Vaccine: Pediatrics (0 to 5 Years) and At-Risk Patients (6 to 64 Years) (1 of 2 - PCV) 08/18/1989 Diabetic Eye Exam 08/18/2001 DTaP,Tdap,and Td Vaccines (1 - Tdap) 08/18/2002 HbA1c 12/25/2021 06/27/2021, 01/18/2021 Albumin/Creatinine Ratio 06/27/2022 06/27/2021 COVID-19 Vaccine (3 - season) 2023 10/25/2020, 09/28/2020 Influenza Vaccine (FLU shot) (Season Ended) 2024 04/12/2021 GFR 07/16/2024 07/16/2023, 06/09, 01/18/2021, Additional history exists Depression Screening 09/17/2024 09/18/2023 Diabetic Foot Exam [...] Not on filedocumented as of this encounter Visit Diagnoses Diagnosis Type 2 diabetes mellitus with hemoglobin A1c goal of less than 7.0% (HCC)- Primary HTN, goal below 130/80 Unspecified essential hypertension Dyslipidemia, goal LDL below 100 Other and unspecified hyperlipidemia Gastric hyperacidity Dyspepsia and other specified disorders of function of stomach Tobacco use disorder JONAS (obstructive sleep apnea) Obstructive sleep apnea (adult) (pediatric) Body mass index (BMI) of 40.0 to 44.9 in adult (HCC) Morbid obesity due to excess calories (HCC) documented in this encounter Advance Directives Latest Code Status on File Code Status Date Activated Date Inactivated Comments Full Code 07/21/2023 10:59 AM 07/21/2023 5:07 PM This order reflects the patients wishes and were consensually agreed upon. Question Answer Comments Discussion of Advance Directives occurred with: Not Discussed due to patient's condition Care Teams Car Runner Relationship Specialty Start Date End Date Erika Sebastian DO [address] [address] PCP - General Family Medicine 10/26/10 documented as of this encounter
--- OUTSIDE RECORDS SUMMARY | 2023-10-08 18:00 | External Medical Summary | Summary of Care ---
Author Name Unknown Organization [facility] Address [address] [place] [address] Phone [phone] Care Team Providers Care Bus Cleaner Name Role Phone PhilipErika may Primary Care Provider + [phone] Reason for Visit * Reason Comments Status Check Pt here today for a "random" check up per pt. Need a referral for ear doctor and renew med. Encounter Details Date Type Department Care Team (Late st Contact Info) Description 09/18/2023 6:40 PM EDT Office Visit [facility] [address] [place] [address] Roland Reed MD [address] [place] [address] Type 2 diabetes mellitus with hemoglobin A1c goal of less than 7.0% ([facility]; HTN, goal below 130/80; Dyslipidemia, goal LDL below 100; Gastric hyperacidity; Tobacco use disorder; JONAS (obstructive sleep apnea); Body mass index (BMI) of 40.0 to 44.9 in adult ([facility]); Morbid obesity due to excess calories ([facility]) Allergies No known active allergiesdocumented as of this encounter (statuses as of 09/25/2023) Medications Medication Sig Dispensed Refills Start Date End Date Status Michelle Montes De Oca Lancets 30GIndications:Ty pe 2 diabetes mellitus with hemoglobin A1c goal of less than 7.0% ([facility]) Use as directed 4 times a day [...] hemoglobin A1c goal of less than 7.0% ([facility]) Take 1 Tablet by mouth 2 times [...] as of this encounter (statuses as of 09/25/2023) Active Problems Problem Noted Date Diagnosed Date [...] 09/14/13 -- AHI 4.5, RDI 7.0 DME: [employer] Dyslipidemia, goal LDL below 100 07/09/2013 Tobacco use disorder 07/12/2011 documented as of this encounter (statuses as of 09/25/2023) Resolved Problems Problem Noted Date Diagnosed Date [...] as of this encounter (statuses as of 09/25/2023) Immunizations Name Administration Dates Next Due COVID-19 mRNA, LNP-s, No Pre serve, 2-Dose Series ([employer]) 10/25/2020,09/28/2020 Seasonal Influenza, PF, 6 M & [...] calluses yourself. Talk to your doctor or lockstitch binder (a doctor who specializes in foot care) [...] the area doesnt appear to be healing. [id number] [employer], [address] [place] [address], [place] [address]. All rights reserved. This information is not [...] R40.0 Morbid obesity due to excess calories ([facility]) E66.01 Type 2 diabetes mellitus with hemoglobin A1c goal of less than 7.0% ([facility]) E11.9 HTN, goal below 130/80 I10 Body mass index (BMI) of 40.0 to 44.9 in adult ([facility]) Z68.41 Hematuria, gross R31.0 Current Outpatient Medications [...] times a day. 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 Date Last Reviewed: 11/08/201519995557-7556 [employer]. [address] [place] [address]. All rights reserved. This information is not [...] and renew med. documented in this encounter Miscellaneous Notes * Addendum Note - Maia Cochran OSA - 09/25/2023 1:44 PM EDTAddended by: MAIA COCHRAN on: 09/25/2023 01:44 PM Modules accepted: Orders documented in this encounter Plan of Treatment Upcoming Encounters Date Type Department Care Team (Late st Contact Info) Description 10/02/2023 6:40 PM EDT Office Visit [facility] [address] [place] [address] Roland Reed MD [address] [place] [address] 12/01/2023 10:30 AM EDT Office Visit Otol[facility] [address] [address] Alex Hernandez DO [address] [place] [address] Scheduled Orders Name Type Priority Associated Diagnoses Orde r Schedule HEMOGLOBIN A1C Lab Routine Type 2 diabetes mellitus with hemoglobin A1c goal of less than 7.0% (HCC) Expected: 09/18/2023 (Approximate), Expires: 10/17/2024 LIPID PANEL WITH DIRECT LDL IF TG [...] Comments DISCUSS TOBACCO CESSATION (REFER TO SMARTSET #6943) 1985 Pneumococcal Vaccine: Pediatrics (0 to 5 [...] Procedure Name Priority Date/Time Associated Diagnosis Comments ALBUMIN / CREATININE RATIO, URINE Routine 09/18/2023 7:26 PM EDT Type 2 diabetes mellitus with hemoglobin A1c goal of less than 7.0% (HCC) documented in this encounter Results * (ABNORMAL) ALBUMIN / CREATININE RATIO, URINE (09/18/2023 7:26 PM EDT) Albumin, Random Urine 28.64 mg/dL 09/19/2023 2:18 PM EDT [facility] Creatinine, Random Urine 266 mg/dL 09/19/2023 2:18 PM EDT [facility] Albumin / Creatinine Ratio, Urine 108(H) <30 mg/g Creat 09/19/2023 2:18 PM EDT [facility] Urine Urine specimen / Unknown Non-blood Collection / Unknown 09/18/2023 7:26 PM EDT 09/19/2023 7:07 AM EDT Narrative [facility] - 09/19/2023 2:18 PM EDT Normal: <30 mg/g creatinine High: 30-300 mg/g creatinine Very High: >300 mg/g creatinine Nephrotic: >2200 mg/g creatinine Roland Reed MD LAB URINE ORDERABLES [facility] [address] [place] [address] documented in this encounter Visit Diagnoses Diagnosis Type 2 [...] Discussed due to patient's condition Care Teams Bus Cleaner Relationship Specialty Start Date End Date Erika Sebastian DO [address] [place] [address] PCP - General Family Medicine 10/26/10 documented as of this encounter
--- OUTSIDE RECORDS SUMMARY | 2023-10-08 18:01 | External Medical Summary | Summary of Care ---
Author Name Unknown Organization [facility] Address [address] [place] [address] Phone [phone] Care Team Providers Care Benefits Administrator Name Role Phone Erika Sebastian DO Primary Care Provider [phone] Encounter Details Date Type Department Care Team (Late st Contact Info) Description 06/25/2023 Orders Only PATIENT PORTAL DO NOT DELETE THIS DEPT USED BY [place], [place] [id number] Allergies No known active allergiesdocumented as of this encounter (statuses as of 06/25/2023) Medications Medication Sig Dispensed Refills Start Date [...] hemoglobin A1c goal of less than 7.0% ([facility]) Use as directed 4 times a day [...] Inhale 0.5 mL via nebulizer. 0 Active documented as of this encounter (statuses as of 06/25/2023) Active Problems Problem Noted Date Diagnosed Date [...] 09/14/13 -- AHI 4.5, RDI 7.0 DME: [employer] Dyslipidemia, goal LDL below 100 07/09/2013 Obesity, Class II, BMI 35-39.9, isolated (see ac tual BMI) 07/12/2011 Overview: BMI= 37.20 07/12/11 Tobacco use disorder 07/12/2011 documented as of this encounter (statuses as of 06/25/2023) Resolved Problems Problem Noted Date Diagnosed Date Resolved Date Chest pain 02/02/2014 05/25/2019 Dyslipidemia, goal to be determined 02/02/2014 05/25/2019 Hyperlipidemia 07/09/2013 07/09/2013 HTN, goal below 130/80 07/09/201308/23 Cough 07/12/2011 05/25/2019 Acute sinusitis 07/12/2011 05/25/2019 Acute bronchitis, complicated 07/12/2011 05/25/2019 Tobacco use disorder 11/02/2010 012 Chronic bronchitis, simple 11/02/2010 1 07/26/2018 documented as of this encounter (statuses as of 06/25/2023) Immunizations Name Administration Dates Next Due COVID-19 mRNA, LNP-s, No Pre serve, 2-Dose Series ([employer]) 10/25/2020,09/28/2020 Seasonal Influenza, PF, 6 M & above, IM , (FluLaval or Fluzone) 04/12/2021 documented as of this encounter Social History Tobacco Use Types Packs/Day Years Used Date Smoking Tobacco: Every Day Cigarettes 1.5 13 Smokeless Tobacco: Never Comments:pt wants to talk to the Dr about chantix Alcohol Use Standard Drinks/Week Comments Never 0 (1 standard drink = 0.6 oz [...] Upcoming Encounters Date Type Department Care Team (Latest Contact Info) Description 07/21/2023 9:07 AM EST Hospital Encounter OR [facility], Operating Room, [facility] - 4th Floor [address] [address] Bud Caldera Jr., MD [address] [address] 07/21/2023 9:07 AM EST - 07/21/2023 10:40 AM EST Surgery OR [facility], Operating Room, [facility] - 4th Floor [address] [address] Bud Caldera Jr., MD [address] [address] UROGRAHY, RETROGRADE, WITH OR WITHOUT KUB Scheduled Procedures Name Priority Associated Diagnoses Date/Ti me UROGRAHY, RETROGRADE, WITH OR WITHOUT KUB Hematuria, gross Acute right flank pain 07/21/2023 9:07 AM EST Health Maintenance Due Date Last Done Comments DISCUSS TOBACCO CESSATION (REFER TO SMARTSET #4702) 1985 Hepatitis B (1 of 3 - 3-dose series) 1985 Pneumococcal Vaccine: Pediatrics (0 to 5 Years) and At-Risk Patients (6 to 64 Years) (1 - PCV) 08/18/1989 Diabetic Eye Exam 08/18/2001 DTaP,Tdap,and Td Vaccines (1 - Tdap) 08/18/2002 Depression Screening 07/31/2018 07/31/2017 HbA1c 12/25/2021 06/27/2021, 01/18/2021 Albumin/Creatinine Ratio 06/27/2022 06/27/2021 Diabetic Foot Exam 06/27/2022 06/27/2021 GFR 06/27/2022 06/27/2021, 01/07, 08/13/2020, Additional history exists COVID-19 Vaccine ( season) 2023 10/25/2020, 09/28/2020 Influenza Vaccine (FLU shot) (#1) 2023 04/12/2021 GARDASIL-HPV IMMUNIZATION SERIES Aged Out No longer eligible based on patient's age to complete this topic MENINGOCOCCAL (MENACTRA/MENVEO) Aged Out No longer eligible based on patient's age to complete this topic documented as of this encounter Medical Devices Not on filedocumented as of this encounter Care Teams Benefits Administrator Relationship Specialty Start Date End Date Erika Sebastian DO [address] [place] [address] PCP - General Family Medicine 10/26/10 documented as of this encounter
--- OUTSIDE RECORDS SUMMARY | 2023-10-08 18:01 | External Medical Summary ---
Author Name Unknown Address Unknown Organization K01:[facility] - [address] [place] [address] Laboratory Report Ordering Provider Test Date Status TIANA PEREZ JR 07/16/2023 11:27:05 Final Observation Date Value Abnormality Reference (Units ) Status PSA 07/16/2023 11:27:05 0.80 <1.40 (ng/ mL) Final Performing Location [facility] - [address] [place] [address]
--- OUTSIDE RECORDS SUMMARY | 2023-10-08 18:01 | External Medical Summary ---
Author Name Unknown Address Unknown Organization K0G:[facility] [address] - [address] [place] [address] Laboratory Report Ordering Provider Test Date Status CHRISTIANA JR 07/16/2023 11:27:05 Final Observation Date Value Abnormality Reference (Units ) Status Color of Urine by Auto 07/16/2023 11:27:05 Yellow Light Yellow, Yellow, Dark Yellow Final Clarity, Urine 07/16/2023 11:27:05 Clear Clear Final Glucose [Mass/volume] in Urine by Automated test strip 07/16/2023 11:27:05 100 Abnormal Negative (mg/dL) Final Bilirubin.total [Presence] in Urine by Automated test strip 07/16/2023 11:27:05 Negative Negative Final Ketones [Mass/volume] in Urine by Automated test strip 07/16/2023 11:27:05 Negative Negative (mg/dL) Final Specific gravity, Urine 07/16/2023 11:27:05 >=1.030 1.003-1.030 Final Hemoglobin [Presence] in Urine by Automated test strip 07/16/2023 11:27:05 Small Abnormal Negative Final pH, Urine 07/16/2023 11:27:05 7.0 5.0-7.5 (Units) Final Protein [Mass/volume] in Urine by Automated test strip 07/16/2023 11:27:05 100 Abnormal Negative (mg/dL) Final Urobilinogen [Mass/volume] in Urine by Automated test strip 07/16/2023 11:27:05 0.2 0.2, 1.0 (mg/dL) Final Nitrite [Presence] in Urine by Automated test strip 07/16/2023 11:27:05 Negative Negative Final Leukocyte esterase [Presence] in Urine by Automated test strip 07/16/2023 11:27:05 Negative Negative Final Performing Location [facility] - [address] [place] [address]
--- OUTSIDE RECORDS SUMMARY | 2023-10-08 18:01 | External Medical Summary ---
Author Name Unknown Address Unknown Organization [facility] [address] [place] [address] Laboratory Report Ordering Provider Test Date Status TIANA PEREZ JR 07/16/2023 11:27:05 Final Observation Date Value Abnormality Reference (Units ) Status WBC, Total 07/16/2023 11:27:05 9.85 4.00-10.8 0 (K/uL) Final RBC 07/16/2023 11:27:05 5.29 4.50-5.25 (M/uL) Final Hemoglobin 07/16/2023 11:27:05 16.8 14.0-16.8 (g/dL) Final HCT 07/16/2023 11:27:05 46.9 40.0-48.4 (%) Final MCV 07/16/2023 11:27:05 88.7 82.0-99.5 (fL) Final MCH 07/16/2023 11:27:05 31.8 27.0-34.0 (pg) Final MCHC 07/16/2023 11:27:05 35.8 32.0-36.0 (g/dL) Final RDW 07/16/2023 11:27:05 12.7 11.5-15.5 (%) Final Platelets 07/16/2023 11:27:05 230 140-400 (K /uL) Final MPV 07/16/2023 11:27:05 10.6 6.6-11.1 ( fL) Final Performing Location [facility]ORY [facility] - [address] [place] [address]
--- OUTSIDE RECORDS SUMMARY | 2023-10-08 18:01 | External Medical Summary ---
Author Name Unknown Address Unknown Organization K0G:[facility] - [address] [place] [address] Laboratory Report Ordering Provider Test Date Status TIANA PEREZ JR 07/16/2023 11:27:05 Final Observation Date Value Abnormality Reference (Units ) Status RBC, Urine 07/16/2023 11:27:05 3-5 Abnormal 0-2 (/HPF) Final WBC, Urine 07/16/2023 11:27:05 0-2 0-2 (/HPF) Final Bacteria [#/area] in Urine sediment by Microscopy high power field 07/16/2023 11:27:05 0-25 0-25 (/HPF) Final Spermatozoa [#/area] in Urine sediment by Microscopy high power field 07/16/2023 11:27:05 Present Abnormal None (/HPF) Final Performing Location [facility] - [address] [place] [address]
--- OUTSIDE RECORDS SUMMARY | 2023-10-08 18:01 | External Medical Summary ---
Author Name Unknown Address Unknown Organization K01:[facility] - [address] [place] [id number] Laboratory Report Ordering Provider Test Date Status TIANA PEREZ JR 07/16/2023 11:27:05 Final Observation Date Value Abnormality Reference (Units) Status Bacteria identified in Specimen by Culture 07/16/2023 11:27:05 No significant growth Final Test: Culture, Urine, Quanti tative
Specimen Source: Urine, Clean Catch
Specimen Type: Urine
Specimen Date: 07/16/2023 11:27 AM
Result Date: 07/17/2023 12:10 PM
Result Status: Final result
Resulting Lab: [facility]
[address]
[place] [address]

CULTURE

No significant growth

null Performing Location [facility] - [address] [facility] [address]
--- OUTSIDE RECORDS SUMMARY | 2023-10-08 18:01 | External Medical Summary | Summary of Care ---
Author Name Unknown Organization [facility] Address [address] [place] [address] Phone [phone] Care Team Providers Care Compliance Tester Name Role Phone Zach Ca Primary Care Provider Reason for Visit * Reason Comments NEW PATIENT Encounter Details Date Type Department Care Team (Latest Contact Info) Description 06/24/2023 7:30 AM EST Office Visit Urology Luis Richter [address] [place] [address] [place] [address] Bud Caldera Jr., MD [address] [place] [address] [place] [address] Hematuria, gross*; Acute right flank pain; Kidney stone; Preoperative cardiovascular examination Allergies No known active allergiesdocumented as of this encounter (statuses as of 06/24/2023) Medications Medication Sig Dispensed Refills Start Date [...] as of this encounter (statuses as of 06/24/2023) Active Problems Problem Noted Date Diagnosed Date [...] 09/14/13 -- AHI 4.5, RDI 7.0 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 Dyslipidemia, goal LDL below 100 07/09/2013 Obesity, Class II, BMI 35-39.9, isolated (see ac tual BMI) 07/12/2011 Overview: BMI= 37.20 07/12/11 Tobacco use disorder 07/12/2011 documented as of this encounter (statuses as of 06/24/2023) Resolved Problems Problem Noted Date Diagnosed Date Resolved Date Chest pain 02/02/2014 05/25/2019 Dyslipidemia, goal to be determined 02/02/2014 05/25/2019 Hyperlipidemia 07/09/2013 07/09/2013 HTN, goal below 130/80 07/09/201308/23 Cough 07/12/2011 05/25/2019 Acute sinusitis 07/12/2011 05/25/2019 Acute bronchitis, complicated 07/12/2011 05/25/2019 Tobacco use disorder 11/02/2010 012 Chronic bronchitis, simple 11/02/2010 1 07/26/2018 documented as of this encounter (statuses as of 06/24/2023) Immunizations Name Administration Dates Next Due COVID-19 mRNA, LNP-s, No Pre serve, 2-Dose Series ([employer]) 10/25/2020,09/28/2020 Seasonal Influenza, PF, 6 M & [...] as of this encounter Progress Notes * Bud Caldera Jr., MD - 06/24/2023 7:51 AM EST [id number] PCP: ZACH CA [facility] [place] [address] Bennie Cohen is a 37 year old male, who presents in referral for evaluation of gross hematuriawith flank pain. He is a known smoker. I have a copy of a ER visit note from [facility] without the ability to review imaging directly. [...] a urine culture and PSA testing. Current Outpatient Medications Medication Sig Dispense Refill OneTouch Verio w/Device Kit Use 4 times [...] No current facility-administered medications for this visit. Review of patient's allergies indicates: No Known Allergies Social History: Social History Tobacco Use Smoking status: Every Day Packs/day: 1.50 Years: 13.00 Additional pack years: 0.00 Total pack years: 19.50 Types: Cigarettes Smokeless tobacco: Never Tobacco comments: pt wants to talk to the Dr about lambert Substance Use Topics Alcohol use: Never Comment: occasionally Vaping/E-Cigarette Use Vaping/E-Cigarette Use Never User Vaping/E-Cigarette Substances Vaping/E-Cigarette Devices Past Surgical History: Procedure Laterality Date HAND/FINGER SURGERY NEC 2002 cut on saw, L thumb Patient Active Problem List Diagnosis Code Obesity, Class II, BMI 35-39.9, isolated (see actual BMI) E66.9 Tobacco use disorder F17.200 Dyslipidemia, goal LDL below 100 E78.5 JONAS (obstructive sleep apnea) G47.33 HTN, goal below 140/90 I10 Daytime somnolence R40.0 Morbid obesity due to excess calories (HCC) E66.01 Type 2 diabetes mellitus with hemoglobin A1c goal of less than 7.0% (HCC) E11.9 HTN, goal below 130/80 I10 Body mass index (BMI) of 40.0 to 44.9 in adult (HCC) Z68.41 Past Surgical History: no changes Past [...] after midnight the night prior to surgery documented in this encounter Nursing Notes * Lu Angel LPN - 06/24/2023 7:52 AM EST New patient presents for evaluation of gross hematuria. Was in [facility] ER 06/21/23 for large amounts of gross hematuria. States it has not cleared up, passing blood clots. CT scan completed, showing stone in left kidney be he states he's been having intermitted pain in right kidney. Smoker. Denies dysuria. documented in this encounter Miscellaneous Notes * Addendum Note - Gabi Camarena OSA - 06/24/2023 2:48 PM ESTAddended by: GABI CAMARENA on: 06/24/2023 02:48 PM Modules accepted: Orders * Addendum Note - Trinidad Nelson TECH - 06/24/2023 9:27 AM ESTAddended by: TRINIDAD NELSON on: 06/24/2023 09:27 AM Modules accepted: Orders documented in this encounter Plan of Treatment Pending Results Name Type Priority Associated Diagnoses Date /Time CULTURE, URINE, QUANTITATIVE Lab Routine Hematuria, gross Acute right flank pain Kidney stone 06/24/2023 8:35 AM EST Scheduled Orders Name Type Priority Associated Diagnoses Orde r Schedule PSA Lab Routine Hematuria, gross Acute right flank pain Kidney stone Expected: 07/01/2023, Expires: 06/24/2024 CULTURE, URINE, QUANTITATIVE Lab Routine Hematuria, gross Acute right flank pain Kidney stone Expected: 06/24/2023, Expires: 06/24/2024 BASIC METABOLIC PANEL Lab Pre-operative Hematuria, gross Acute right flank pain Preoperative cardiovascular examination Expected: 07/01/2023, Expires: 06/24/2024 CBC Lab Pre-operative Hematuria, gross Acute right flank pain Preoperative cardiovascular examination Expected: 07/01/2023, Expires: 06/24/2024 Scheduled Procedures Name Priority Associated Diagnoses Date/Ti me UROGRAHY, RETROGRADE, WITH O R WITHOUT KUB Hematuria, gross Acute right flank pain Health Maintenance Due Date Last Done Comments DISCUSS TOBACCO CESSATION (REFER TO SMARTSET #3297) 1983 Hepatitis B (1 of 3 - [...] 01/07, 08/13/2020, Additional history exists COVID-19 Vaccine (3 - 2022- season) 2023 10/25/2020, 09/28/2020 Influenza Vaccine (FLU [...] Procedure Name Priority Date/Time Associated Diagnosis Comments EXTRA URINE Routine 06/24/2023 8:35 AM EST EXTRA TUBES Routine 06/24/2023 8:35 AM EST documented in this encounter Results * EXTRA URINE (06/24/2023 8:35 AM EST) Urine Urine specimen / Unknown 06/24/2023 8:35 AM EST 06/24/2023 9:27 AM EST Bud Caldera Jr., MD [facility] Organization Address City/State/[facility] Co de Phone Number LABORATORY [address] [address] documented in this encounter Visit Diagnoses Diagnosis Hematuria, gross- Primary Gross hematuria Acute right flank pain Abdominal pain, unspecified site Kidney stone Calculus of kidney Preoperative cardiovascular examination Pre-operative cardiovascular examination documented in this encounter Care Teams Compliance Tester Relationship Specialty Start Date End Date Zach Ca DO [address] [place] [address] PCP - General Family Medicine 10/26/10 documented as of this encounter
--- OUTSIDE RECORDS SUMMARY | 2023-10-08 18:01 | External Medical Summary | Summary of Care ---
Author Name Unknown Organization [facility] Address [address] [place] [address] Phone [phone] Care Team Providers Care Slimer Name Role Phone RomuloErika Primary Care Provider [phone] Reason for Visit * Reason Comments Outpatient Testing Encounter Details Date Type Department Care Team (Late st Contact Info) Description 07/16/2023 11:40 AM EST Laboratory Laboratory, [facility] [address] [facility] [place] [id number] [facility] [address] [facility] [place] [address] Hematuria, gross; Acute right flank pain; Kidney stone; Preoperative cardiovascular examination; Pre-op testing Allergies No known active allergiesdocumented as of this encounter (statuses as of 07/16/2023) Medications Medication Sig Dispensed Refills Start Date [...] as of this encounter (statuses as of 07/16/2023) Active Problems Problem Noted Date Diagnosed Date [...] 09/14/13 -- AHI 4.5, RDI 7.0 DME: CLIENT SUPPORT CONSULTANT Dyslipidemia, goal LDL below 100 07/09/2013 Obesity, Class II, BMI 35-39.9, isolated (see ac tual BMI) 07/12/2011 Overview: BMI= 37.20 07/12/11 Tobacco use disorder 07/12/2011 documented as of this encounter (statuses as of 07/16/2023) Resolved Problems Problem Noted Date Diagnosed Date Resolved Date Chest pain 02/02/2014 05/25/2019 Dyslipidemia, goal to be determined 02/02/2014 05/25/2019 Hyperlipidemia 07/09/2013 07/09/2013 HTN, goal below 130/80 07/09/201308/23 Cough 07/12/2011 05/25/2019 Acute sinusitis 07/12/2011 05/25/2019 Acute bronchitis, complicated 07/12/2011 05/25/2019 Tobacco use disorder 11/02/2010 012 Chronic bronchitis, simple 11/02/2010 1 07/26/2018 documented as of this encounter (statuses as of 07/16/2023) Immunizations Name Administration Dates Next Due COVID-19 mRNA, LNP-s, No Pre serve, 2-Dose Series ([employer]) 10/25/2020,09/28/2020 Seasonal Influenza, PF, 6 M & [...] Department Care Team (Latest Contact Info) Description 07/16/2023 11:50 AM EST Imaging Radiology [facility] [address] [facility] [place] [address] 07/21/2023 10:34 AM EST Hospital Encounter OR [facility], Operating Room, [facility] - [address] [place] [address] [address] [place] [address] [place] [address] Bud Caldera Jr., MD [address] [place] [place] [place] [address] 07/21/2023 10:34 AM EST - 07/21/2023 12:07 PM EST Surgery OR [facility], Operating Room, [facility] - [address] [place] [address] [address] [place] [address] Bud Caldera Jr., MD [address] [place] [place] [address] UROGRAHY, RETROGRADE, WITH OR WITHOUT KUB Pending Results Name Type Priority Associated Diagnoses Date /Time PSA Lab Routine Hematuria, gross Acute right flank pain Kidney stone 07/16/2023 11:27 AM EST BASIC METABOLIC PANEL Lab Pre-operative Hematuria, gross Acute right flank pain Preoperative cardiovascular examination 07/16/2023 11:27 AM EST CBC Lab Pre-operative Hematuria, gross Acute right flank pain Preoperative cardiovascular examination 07/16/2023 11:27 AM EST CULTURE, URINE, QUANTITATIVE Lab Routine Hematuria, gross Acute right flank pain Kidney stone Pre-op testing 07/16/2023 11:27 AM EST URINALYSIS, REFLEX TO MICROSCOPIC Lab Routine Hematuria, gross Acute right flank pain Kidney stone Pre-op testing 07/16/2023 11:27 AM EST MICROSCOPIC EXAM, URINE Lab Routine Hematuria, gross Acute right flank pain Kidney stone Pre-op testing 07/16/2023 11:27 AM EST Scheduled Procedures Name Priority Associated Diagnoses Date/Ti me UROGRAHY, RETROGRADE, WITH OR WITHOUT KUB Hematuria, gross Acute right flank pain 07/21/2023 10:34 AM EST Health Maintenance Due Date Last Done Comments DISCUSS TOBACCO CESSATION (REFER TO SMARTSET #3293) 1985 Hepatitis B (1 of 3 - 3-dose series) 1985 Pneumococcal Vaccine: Pediatrics (0 to 5 Years) and At-Risk Patients (6 to 64 Years) (1 - PCV) 08/18/1989 Diabetic Eye Exam 08/18/2001 DTaP,Tdap,and Td Vaccines (1 - Tdap) 08/18/2002 Depression Screening 07/31/2018 07/31/2017 HbA1c 12/25/2021 06/27/2021, 01/18/2021 Albumin/Creatinine Ratio 06/27/2022 06/27/2021 Diabetic Foot Exam 06/27/2022 06/27/2021 GFR 06/27/2022 06/27/2021, 0807/2020, 08/13/2020, Additional history exists COVID-19 Vaccine ( [...] as of this encounter Visit Diagnoses Diagnosis Hematuria, gross Gross hematuria Acute right flank pain Abdominal pain, unspecified site Hematuria, gross Gross hematuria Acute right flank pain Abdominal pain, unspecified site Kidney stone Calculus of kidney Preoperative cardiovascular examination Pre-operative cardiovascular examination Pre-op testing Preoperative examination, unspecified Hematuria, gross Gross hematuria Acute right flank pain Abdominal pain, unspecified site documented in this encounter Care Teams Slimer Relationship Specialty Start Date End Date Erika Sebastian DO [address] [address] PCP - General Family Medicine 10/26/10 documented as of this encounter
--- OUTSIDE RECORDS SUMMARY | 2023-10-08 18:01 | External Medical Summary | Summary of Care ---
Author Name Unknown Organization [facility] Address [address] [place] [address] Phone [phone] Care Team Providers Care Electron Beam Welding Machine Operator Name Role Phone Zach aC Primary Care Provider [phone] Reason for Visit * Reason Comments NEW PATIENT Encounter Details Date Type Department Care Team (Latest Contact Info) Description 06/24/2023 7:30 AM EST Office Visit Urology Luis Richter [address] [place] [address] [place] [address] Bud Caldera Jr., MD [address] [place] [place] [address] Hematuria, gross*; Acute right flank pain; Kidney [...] 09/14/13 -- AHI 4.5, RDI 7.0 DME: PRINTED CIRCUIT BOARDS PLASMA ETCHER Dyslipidemia, goal LDL below 100 07/09/2013 Obesity, [...] mRNA, LNP-s, No Pre serve, 2-Dose Series ([employer]) 10/25/2020,09/28/2020 Seasonal Influenza, PF, 6 M & [...] Jr., MD - 06/24/2023 7:51 AM EST [id number] PCP: ZACH CA [facility] [place] [address] Bennie Cohen is a 37 year old male, who presents in referral for evaluation of gross hematuriawith flank pain. He is a known smoker. I have a copy of a ER visit note from [facility] without the ability to review imaging directly. [...] for evaluation of gross hematuria. Was in [facility] ER 06/21/23 for large amounts of gross hematuria. States it has not cleared up, passing blood clots. CT scan completed, showing stone in left kidney be he states he's been having intermitted pain in right kidney. Smoker. Denies dysuria. documented in this encounter Miscellaneous Notes * Addendum Note - Gabi Camarena OSA - 06/24/2023 2:53 PM ESTAddended by: GABI CAMARENA on: 06/24/2023 02:53 PM Modules accepted: Orders * Addendum Note - Gabi Camarena OSA [...] Preoperative cardiovascular examination Expected: 07/01/2023, Expires: 06/24/2024 XR CHEST 2 VIEWS Medical Imaging Routine Hematuria, gross Acute right flank pain Kidney stone Preoperative cardiovascular examination Ordered: 06/24/2023 Scheduled Procedures Name Priority Associated Diagnoses Date/Ti me UROGRAHY, RETROGRADE, WITH O R WITHOUT KUB Hematuria, gross Acute right flank pain Health Maintenance Due Date Last Done Comments DISCUSS TOBACCO CESSATION (REFER TO SMARTSET #5512) 1983 Hepatitis B (1 of 3 - [...] EST Bud Caldera Jr., MD LAB URINE ORDE MALLY Performing Organization Address City/State/[facility] Co de Phone Number [address] [address] documented in this encounter Visit Diagnoses Diagnosis Hematuria, gross- Primary Gross hematuria Acute right flank pain Abdominal pain, unspecified site Kidney stone Calculus of kidney Preoperative cardiovascular examination Pre-operative cardiovascular examination documented in this encounter Care Teams Electron Beam Welding Machine Operator Relationship Specialty Start Date End Date Zach Ca DO [address] [place] [id number] PCP - General Family Medicine 10/26/10 documented as of this encounter
--- OUTSIDE RECORDS SUMMARY | 2023-10-08 18:01 | External Medical Summary | Summary of Care ---
Author Name Unknown Organization [facility] Address [address] [place] [address] Phone [phone] Care Team Providers Care Hangersmith Name Role Phone Zach Ca Primary Care Provider Reason for Visit * Reason Comments NEW PATIENT Encounter Details Date Type Department Care Team (Latest Contact Info) Description 06/24/2023 7:30 AM EST Office Visit Urology Luis Richter [address] [place] [place] [address] Bud Caldera Jr., MD [address] [facility] [address] [place] [address] Hematuria, gross*; Acute right flank pain; Kidney stone; Preoperative cardiovascular examination; Pre-op testing Allergies No known active allergiesdocumented as of this encounter (statuses as of 06/30/2023) Medications Medication Sig Dispensed Refills Start Date [...] as of this encounter (statuses as of 06/30/2023) Active Problems Problem Noted Date Diagnosed Date [...] 09/14/13 -- AHI 4.5, RDI 7.0 DME: PHARMACY TECHNOLOGIST Dyslipidemia, goal LDL below 100 07/09/2013 Obesity, Class II, BMI 35-39.9, isolated (see ac tual BMI) 07/12/2011 Overview: BMI= 37.20 07/12/11 Tobacco use disorder 07/12/2011 documented as of this encounter (statuses as of 06/30/2023) Resolved Problems Problem Noted Date Diagnosed Date Resolved Date Chest pain 02/02/2014 05/25/2019 Dyslipidemia, goal to be determined 02/02/2014 05/25/2019 Hyperlipidemia 07/09/2013 07/09/2013 HTN, goal below 130/80 07/09/201308/23 Cough 07/12/2011 05/25/2019 Acute sinusitis 07/12/2011 05/25/2019 Acute bronchitis, complicated 07/12/2011 05/25/2019 Tobacco use disorder 11/02/2010 012 Chronic bronchitis, simple 11/02/2010 1 07/26/2018 documented as of this encounter (statuses as of 06/30/2023) Immunizations Name Administration Dates Next Due COVID-19 mRNA, LNP-s, No Pre serve, 2-Dose Series ([employer]) 10/25/2020,09/28/2020 Seasonal Influenza, PF, 6 M & [...] Jr., MD - 06/24/2023 7:51 AM EST [id number] PCP: ZACH CA [address] [place] [address] Bennie Cohen is a 37 year old male, who presents in referral for evaluation of gross hematuriawith flank pain. He is a known smoker. I have a copy of a ER visit note from [facility] without the ability to review imaging [...] of 40.0 to 44.9 in adult ([facility]) Z68.41 Past Surgical History: no changes Past [...] for evaluation of gross hematuria. Was in [facility] ER 06/21/23 for large amounts of gross hematuria. States it has not cleared up, passing blood clots. CT scan completed, showing stone in left kidney be he states he's been having intermitted pain in right kidney. Smoker. Denies dysuria. documented in this encounter Miscellaneous Notes * Addendum Note - Gabi Camarena OSA - 06/30/2023 10:09 AM ESTAddended by: GABI CAMARENA on: 06/30/2023 10:09 AM Modules accepted: Orders * Addendum Note - [...] 07/21/2023 9:07 AM EST Hospital Encounter OR [facility], Operating Room, [facility] Floor [address] [place] [address] [place] [address] Bud Caldera Jr., MD [facility] [address] [place] [address] 07/21/2023 9:07 AM EST - 07/21/2023 10:40 AM EST Surgery OR [facility], Operating Room, [facility] Floor [address] [place] [address] Bud Caldera Jr., MD [address] [facility] [address] [place] [address] UROGRAHY, RETROGRADE, WITH OR WITHOUT KUB Scheduled Orders Name Type Priority Associated Diagnoses Orde r Schedule PSA Lab Routine Hematuria, gross Acute right flank pain Kidney stone Expected: 07/01/2023, Expires: 06/24/2024 BASIC METABOLIC PANEL Lab Pre-operative Hematuria, gross Acute right flank pain Preoperative cardiovascular examination Expected: 07/01/2023, Expires: 06/24/2024 CBC Lab Pre-operative Hematuria, gross Acute right flank pain Preoperative cardiovascular examination Expected: 07/01/2023, Expires: 06/24/2024 XR CHEST 2 VIEWS Medical Imaging Routine Hematuria, gross Acute right flank pain Kidney stone Preoperative cardiovascular examination Ordered: 06/24/2023 EKG EKG Routine Hematuria, gross Acute right flank pain Kidney stone Pre-op testing Expected: 06/30/2023 (Approximate), Expires: 07/31/2024 CULTURE, URINE, QUANTITATIVE Lab Routine Hematuria, gross Acute right flank pain Kidney stone Pre-op testing Expected: 06/30/2023, Expires: 06/30/2024 URINALYSIS, REFLEX TO MICROSCOPIC Lab Routine Hematuria, gross Acute right flank pain Kidney stone Pre-op testing Expected: 06/30/2023, Expires: 06/30/2024 Scheduled Procedures Name Priority Associated Diagnoses Date/Ti me UROGRAHY, RETROGRADE, WITH OR WITHOUT KUB Hematuria, gross Acute right flank pain 07/21/2023 9:07 AM EST Health Maintenance Due Date Last Done Comments DISCUSS TOBACCO CESSATION (REFER TO SMARTSET #3294) 1983 Hepatitis B (1 of 3 - [...] EXTRA TUBES Routine 06/24/2023 8:35 AM EST CULTURE, URINE, QUANTITATIVE Routine 06/24/2023 8:35 AM EST Hematuria, gross Acute right flank pain Kidney stone documented in this encounter Results * EXTRA URINE (06/24/2023 8:35 AM EST) Urine Urine specimen / Unknown 06/24/2023 8:35 AM EST 06/24/2023 9:27 AM EST Bud Caldera Jr., MD LAB URINE ORDE RABLES Performing Organization Address City/[facility]/ZIP Co de Phone Number LABORATORY [address] [address] * CULTURE, URINE, QUANTITATIVE (06/24/2023 8:35 AM EST) Culture Growth No significant growth 06/25/2023 10:46 AM EST LABORATORY [facility] Urine Urine specimen obtained by clean catch procedure / Unknown Non-blood Collection / Unknown 06/24/2023 8:35 AM EST 06/24/2023 8:35 AM EST Bud Caldera Jr., MD LAB MICRO - GE NERAL ORDERABLES LABORATORY [facility] [address] [place] [address] documented in this encounter Visit [...] site documented in this encounter Care Teams Hangersmith Relationship Specialty Start Date End Date Zach Ca DO [address], [place] [id number] PCP - General Family Medicine 10/26/10 documented as of this encounter
--- OUTSIDE RECORDS SUMMARY | 2023-10-08 18:01 | External Medical Summary ---
Author Name Unknown Address Unknown Organization K0G:LABORATORY [place] [address] [place] [id number] Laboratory Report Ordering Provider Test Date Status TIANA PEREZ JR 07/16/2023 11:27:05 Final Observation Date Value Abnormality Reference (Units ) Status BUN 07/16/2023 11:27:05 9 6-20 (mg/dL) Final Creatinine 07/16/2023 11:27:05 0.8 0.6-1.2 (mg/dL) Final Glomerular filtration rate/1.73 sq M.predicted [Volume Rate/Area] in Serum, Plasma or Blood by Creatinine-based formula (CKD-EPI) 07/16/2023 11:27:05 >90 >=60 (mL/min) Final eGFR is calculated based on the CKD-EPI 2020 equation SODIUM 07/16/2023 11:27:05 137 135-146 (m mol/L) Final Potassium 07/16/2023 11:27:05 4.4 3.5-5.1 (m mol/L) Final Cl 07/16/2023 11:27:05 103 98-107 (mm ol/L) Final CO2 07/16/2023 11:27:05 24 22-32 (mmo l/L) Final Anion gap 07/16/2023 11:27:05 10 7-15 (mmol /L) Final Glucose 07/16/2023 11:27:05 149 Above high normal 70 -120 (mg/dL) Final Calcium 07/16/2023 11:27:05 10.0 8.4-10.2 ( mg/dL) Final Performing Location [facility] [place] [id number]
--- OUTSIDE RECORDS SUMMARY | 2023-10-08 18:02 | External Medical Summary | Summary of Care ---
Author Name Unknown Organization [facility] Address [address] [place] [address] Phone [phone] Care Team Providers Care Political Science Instructor Name Role Phone Zach Ca Primary Care Provider Reason for Visit * Reason Comments NEW PATIENT Encounter Details Date Type Department Care Team (Latest Contact Info) Description 06/24/2023 7:30 AM EST Office Visit Urology Luis Richter [address] [place] [place] [phone] Bud Caldera Jr., MD [address] [place] [place] [address] Hematuria, gross*; Acute right flank pain; Kidney [...] 09/14/13 -- AHI 4.5, RDI 7.0 DME: RADIO DIRECTOR Dyslipidemia, goal LDL below 100 07/09/2013 Obesity, [...] mRNA, LNP-s, No Pre serve, 2-Dose Series (eoSemi) 10/25/2020,09/28/2020 Seasonal Influenza, PF, 6 M & [...] Jr., MD - 06/24/2023 7:51 AM EST [id number] PCP: ZACH [place] [facility] [place] [address] Bennie Cohen is a 37 year old male, who presents in referral for evaluation of gross hematuriawith flank pain. He is a known smoker. I have a copy of a ER visit note from [facility] without the ability to review [...] wants to talk to the Dr about lmabert Substance Use Topics Alcohol use: Never Comment: [...] for evaluation of gross hematuria. Was in [facility] ER 06/21/23 for large amounts of gross hematuria. States it has not cleared up, passing blood clots. CT scan completed, showing stone in left kidney be he states he's been having intermitted pain in right kidney. Smoker. Denies dysuria. documented in this encounter Miscellaneous Notes * Addendum Note - Trinidad Nelson TECH - 06/24/2023 9:27 AM ESTAddended by: TRINIDAD NELSON on: 06/24/2023 09:27 AM Modules accepted: Orders documented in this encounter Plan of Treatment Pending Results Name Type Priority Associated Diagnoses Date /Time CULTURE, URINE, QUANTITATIVE Lab Routine Hematuria, gross Acute right flank pain Kidney stone 06/24/2023 8:35 AM EST EXTRA TUBES Lab Routine 06/24/2023 8: 35 AM EST EXTRA URINE Lab Routine 06/24/2023 8: 35 AM EST Scheduled Orders Name Type Priority Associated Diagnoses Orde r Schedule PSA Lab Routine Hematuria, gross Acute right flank pain Kidney stone Expected: 07/01/2023, Expires: 06/24/2024 CULTURE, URINE, QUANTITATIVE Lab Routine Hematuria, gross Acute right flank pain Kidney stone Expected: 06/24/2023, Expires: 06/24/2024 EKG EKG Pre-operative Hematuria, gross Acute right flank pain Preoperative cardiovascular examination Expected: 07/01/2023, Expires: 07/25/2024 BASIC METABOLIC PANEL Lab Pre-operative Hematuria, gross [...] Comments DISCUSS TOBACCO CESSATION (REFER TO SMARTSET #3296) 1983 Hepatitis B (1 of 3 - [...] of this encounter Visit Diagnoses Diagnosis Hematuria, gross- Primary Gross hematuria Acute right flank pain Abdominal pain, unspecified site Kidney stone Calculus of kidney Preoperative cardiovascular examination Pre-operative cardiovascular examination documented in this encounter Care Teams Political Science Instructor Relationship Specialty Start Date End Date Zach Ca DO [address] [place] [address] PCP - General Family Medicine 10/26/10 documented as of this encounter
--- OUTSIDE RECORDS SUMMARY | 2023-10-08 18:02 | External Medical Summary | Summary of Care ---
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 He is a known smoker. I have a copy of a ER visit note from [facility] without the ability to review imaging directly. [...] for evaluation of gross hematuria. Was in [facility] ER 06/21/23 for large amounts of gross hematuria. States it has not cleared up, passing blood clots. CT scan completed, showing stone in left kidney be he states he's been having intermitted pain in right kidney. Smoker. Denies dysuria. documented in this encounter Plan of Treatment [...] Comments DISCUSS TOBACCO CESSATION (REFER TO SMARTSET #2614) 1983 Hepatitis B (1 of 3 - [...] examination documented in this encounter Care Teams Director Fraud Relationship Specialty Start Date End Date Zach Ca DO [address] [place] [address] PCP - General Family Medicine 10/26/10 documented as of this encounter
--- OUTSIDE RECORDS SUMMARY | 2023-10-08 18:02 | External Medical Summary ---
Author Name Unknown Address Unknown Organization K01:[facility] [place] [address] [place] [id number] Laboratory Report Ordering Provider Test Date Status TIANA PEREZ JR 06/24/2023 08:35:09 Final Observation Date Value Abnormality Reference (Units) Status Bacteria identified in Specimen by Culture 06/24/2023 08:35:09 No significant growth Final Test: Culture, Urine, Quanti tative
Specimen Source: Urine, Clean Catch
Specimen Type: Urine
Specimen Date: 06/24/2023 8:35 AM
Result Date: 06/25/2023 10:46 AM
Result Status: Final result
Resulting Lab: [facility]
[address]
[facility] [address]

CULTURE

No significant growth

null Performing Location [facility] [place] [address] [place] [id number]
--- OUTSIDE RECORDS SUMMARY | 2023-10-08 18:02 | External Medical Summary | Summary of Care ---
Author Name Unknown Organization [facility] Address [address] [place] [address] Phone [phone] Care Team Providers Care Support Assistant Name Role Phone Zach Ca Primary Care Provider Reason for Visit * Reason Comments NEW PATIENT Encounter Details Date Type Department Care Team (Latest Contact Info) Description 06/24/2023 7:30 AM EST Office Visit Urology Luis Richter [address] [place] [place] [address] Bud Caldera Jr., MD [address] [place] [place] [address] Hematuria, gross*; Acute right flank pain; Kidney [...] 09/14/13 -- AHI 4.5, RDI 7.0 DME: THORACIC SURGEON Dyslipidemia, goal LDL below 100 07/09/2013 Obesity, [...] mRNA, LNP-s, No Pre serve, 2-Dose Series (Signal Patterns) 10/25/2020,09/28/2020 Seasonal Influenza, PF, 6 M & [...] Jr., MD - 06/24/2023 7:51 AM EST [id number] PCP: ZACH CA [facility] [place] [address] Bennie Cohen is a 37 year old male, who presents in referral for evaluation of gross hematuriawith flank pain. He is a known smoker. I have a copy of a ER visit note from [facility] without the ability to [...] for evaluation of gross hematuria. Was in [facility] ER 06/21/23 for large amounts of gross hematuria. States it has not cleared up, passing blood clots. CT scan completed, showing stone in left kidney be he states he's been having intermitted pain in right kidney. Smoker. Denies dysuria. documented in this encounter Plan of Treatment Scheduled Orders Name Type Priority Associated Diagnoses [...] Comments DISCUSS TOBACCO CESSATION (REFER TO SMARTSET #3291) 1983 Hepatitis B (1 of 3 - [...] 01/07, 08/13/2020, Additional history exists COVID-19 Vaccine (2022- season) 2023 10/25/2020, 09/28/2020 Influenza Vaccine (FLU [...] examination documented in this encounter Care Teams Support Assistant Relationship Specialty Start Date End Date Zach Ca DO [address] [place], [place] [id number] PCP - General Family Medicine 10/26/10 documented as of this encounter
[2023-10-08 23:09] LABS: ANTI-Xa, UFH(UnfractionatedHep 0.22 IU/ml (0.3-0.7)
[2023-10-09 03:11] LABS: BUN Creatinine Ratio 12.8 (10-20); Calcium 8.5 mg/dl (8.6-10.3); Creatinine Clr Calc Pharmacy 130.4 ml/min; Est GFR (African American) 125.7 ml/min; Est GFR (Non-African American) 108.5 ml/min; Magnesium 2.2 mg/dl (1.7-2.4); Potassium 3.9 mmol/L (3.5-5.1)
[2023-10-09 03:47] LABS: Troponin I High Sensitivity 46738.5 pg/ml (0-20)
[2023-10-09] MEDS: POTASSIUM CHLORIDE CRTAB 20 MEQ TABCR PO STA (05:26)
[2023-10-09] MEDS: CLOPIDOGREL BISULFATE 75 MG TAB PO SCH (09:25)
--- NOTE | 2023-10-09 10:01 | XCELERA ---
[id number]_[id number].pdf
--- NOTE | 2023-10-09 12:23 | Hospitalist Progress Note ---
Date of Service October 09, 2023 Assessment & Plan (1) Acute RI, inferior wall: Plan: Bennie Cohen is a 38y/o male with PMH of HTN, DM type II, hypercholesteremia, acid reflux, obesity, JONAS and tobacco use disorder [2.5 pack/day] who presented to the ED via EMS for evaluation of chest pain and was found to have an acute inferior ST elevation RI. STEMI --S/P left heart catheterization on 10/07/2023--unsuccessful at ballooning/stenting of culprit RCA lesion due to difficult anatomy --CXR:There is prominence of the pulmonary vasculature. Correlate clinically for evidence of fluid overload.. No airspace consolidation or pleural effusion is identified. --ECHO: Mild concentric LVH. EF 55 to 60% basal to mid inferior wall severely hypokinetic to akinetic. Basal septal and inferolateral wall mildly hypokinetic. Normal RV size and function. Mild mitral regurgitation. Normal estimated PA pressure. -- HbA1c 7.9 --Lipid panel within normal limits --Elevated troponin --Continue aspirin, Lipitor, IV heparin, Plavix Consider resuming metoprolol as able Appreciate critical care, cardiology input Continue to monitor in ICU Plan for repeat cardiac catheterization today (2) Acute RI, true posterior wall: (3) Obstructive sleep apnea, adult: Plan: -Hx of noncompliance with CPAP (4) Tobacco abuse: Plan: Counseled to quit smoking . (5) Diabetes: Plan: HbA1c 7.9 Continue insulin per protocol Monitor BGs (6) Hypertension: Plan: On Lisinopril-HCTZ at home Currently not on meds Monitor and adjust medications as needed (7) Hypercholesteremia: Plan: Continue statin DVT Px: IV Heparin Code Status: Full Code Admission and Anticipated Discharge Date Admission Date: October 08, 2023 Subjective Patient is seen and examined at bedside Patient states feeling better today Denies any chest pain this morning Plan for repeat cardiac catheterization today Offers no other complaints Nausea, dyspnea, dizziness resolved Review of Systems Review of Systems: All systems reviewed & are unremarkable except as noted in Subjective Physical Exam 2 Physical Exam: Physical Exam: Vitals signs as noted above General Appearance:Obese, no apparent distress Head: normocephalic, Atraumatic Eyes: normal inspection, EOMI Neck: supple, Trachea midline Respiratory/Chest: Decreased breath sounds, CTA, No accessory muscle use Cardiovascular: S1, S2, No murmur Abdomen/GI:Soft, Non tender, Bowel sounds present Extremities/Musculoskeletal:normal inspection, no edema Neurologic/Psych:AAOX3, grossly no focal neurological deficits Skin: normal color, warm Results & Data Results & Data Vital Signs (Past 12 Hours) Vital Signs Temp Pulse Pulse Resp BP BP Pulse Ox 10/09/23 11:34 76 22 97 10/09/23 10:01 76 13 98 10/09/23 10:00 116/82 10/09/23 09:59 72 12 98 10/09/23 09:00 75 17 97 10/09/23 08:02 78 24 96 10/09/23 08:02 119/82 10/09/23 08:00 84 14 96 10/09/23 08:00 78 10/09/23 08:00 10/09/23 07:24 110/80 10/09/23 07:24 83 25 H 96 10/09/23 07:12 96 10/09/23 06:33 36.8 C 80 17 122/82 98 10/09/23 04:00 76 10/09/23 04:00 36.8 C 76 17 125/94 98 10/09/23 03:00 117/80 10/09/23 03:00 78 34 H 92 10/09/23 02:00 76 27 H 90 10/09/23 01:02 79 36 H 95 10/09/23 01:02 78/45 L 10/09/23 01:00 79 39 H 93 O2 Del Method O2 Flow Rate 10/09/23 11:34 10/09/23 10:01 10/09/23 10:00 10/09/23 09:59 10/09/23 09:00 10/09/23 08:02 10/09/23 08:02 10/09/23 08:00 10/09/23 08:00 10/09/23 08:00 Nasal Cannula 3 10/09/23 07:24 10/09/23 07:24 10/09/23 07:12 10/09/23 06:33 Nasal Cannula 2 10/09/23 04:00 10/09/23 04:00 Nasal Cannula 4 10/09/23 03:00 10/09/23 03:00 10/09/23 02:00 10/09/23 01:02 10/09/23 01:02 10/09/23 01:00 Laboratory Results Short CBC 10/09/23 Range/Units 15:25 WBC 14.15 H (4.8-10.8) K/ul Hgb 13.6 L (14.0-18.0) g/dl Hct 38.0 L (42.0-52.0) % Plt Count 186 (130-400) K/uL BMP 10/09/23 02:33 Sodium 133 L Potassium 3.9 Chloride 105 Carbon Dioxide 24 BUN 11 Creatinine 0.86 Glucose 155 H Calcium 8.5 L (5) Diabetes Diabetes mellitus type: type 2 (6) Hypertension Hypertension type: unspecified Qualified Code(s): I10 - Essential (primary) hypertension
[2023-10-09 13:35] LABS: ANTI-Xa, UFH(UnfractionatedHep 0.22 IU/ml (0.3-0.7)
[2023-10-09 16:01] LABS: Basophils # (auto) 0.08 K/uL (0.00-0.20); Basophils % (auto) 0.6 %; Eosinophils # (auto) 0.05 K/uL (0.00-0.50); Eosinophils % (auto) 0.4 %; Hemoglobin 13.6 g/dl (14.0-18.0); Immature Granulocytes # (auto) 0.13 K/uL (0.01-0.20); Immature Granulocytes % (auto) 0.9 %; Lymphocytes % (auto) 14.8 %; Mean Corpuscular Hemoglobin 31.1 pg (25.0-34.0); Mean Corpuscular Hgb Conc 35.8 g/dL (32.0-36.0); Mean Corpuscular Volume 86.8 fL (80.0-100.0); Mean Platelet Volume 10.6 fL (9.4-12.4); Monocytes # (auto) 2.48 K/uL (0.11-0.59); Monocytes % (auto) 17.5 %; Neutrophils # (auto) 9.31 K/uL (1.40-6.50); Neutrophils % (auto) 65.8 %; Platelet Count 186 K/uL (130-400); RDW Coefficient of Variation 12.5 % (11.5-14.5); RDW Standard Deviation 39.6 fL (36.4-46.3); Red Blood Count 4.38 M/uL (4.70-6.10); White Blood Count 14.15 K/ul (4.8-10.8)
[2023-10-09] MEDS: NITROGLYCERIN/D5W 100MCG/ML 20ML SYR ONE (17:14)
[2023-10-09] MEDS: niCARdipine HCL INJ 2.5 MG/ML 10 ML AMP ONE (17:15)
[2023-10-09] MEDS: MIDAZOLAM HCL 1 MG/ML 2ML VIAL ONE (17:19)
[2023-10-09] MEDS: fentaNYL citrate PF 100 MCG/2 ML VIAL ONE (17:20)
[2023-10-09] MEDS: OPTIRAY 350 ONE (17:21)
[2023-10-09] MEDS: HEPARIN (PORCINE) 1000 UNIT/ML 10 ML (CATH LAB USE ONLY) ONE (17:21)
--- NOTE | 2023-10-09 17:24 | Pre Anesthesia Assessment ---
Date of Service October 09, 2023 Pre Sedation Assessment Vital Signs Temp Pulse Pulse Resp BP BP Pulse Ox 10/09/23 16:11 90 18 110/74 100 10/09/23 13:01 127/85 10/09/23 13:01 69 26 H 98 10/09/23 12:00 98 H 21 95 10/09/23 12:00 76 10/09/23 11:34 76 22 97 10/09/23 10:01 76 13 98 10/09/23 10:00 116/82 10/09/23 09:59 72 12 98 10/09/23 09:00 75 17 97 10/09/23 08:02 78 24 96 10/09/23 08:02 119/82 10/09/23 08:00 84 14 96 10/09/23 08:00 78 10/09/23 08:00 10/09/23 07:24 110/80 10/09/23 07:24 83 25 H 96 10/09/23 07:12 96 10/09/23 06:33 98.2 F 80 17 122/82 98 10/09/23 04:00 76 10/09/23 04:00 98.2 F 76 17 125/94 98 10/09/23 03:00 117/80 10/09/23 03:00 78 34 H 92 10/09/23 02:00 76 27 H 90 10/09/23 01:02 79 36 H 95 10/09/23 01:02 78/45 L 10/09/23 01:00 79 39 H 93 10/09/23 00:00 105/74 10/09/23 00:00 87 16 94 10/09/23 00:00 98.2 F 79 10/09/23 00:00 79 10/08/23 23:01 79 33 H 98 10/08/23 23:00 83/57 L 10/08/23 22:59 82 26 H 99 10/08/23 22:02 86 24 85 L 10/08/23 22:02 107/25 L 10/08/23 21:30 98.1 F 10/08/23 21:01 120/78 10/08/23 21:01 81 34 H 95 10/08/23 21:00 81 37 H 94 10/08/23 21:00 10/08/23 20:09 97/69 L 10/08/23 20:09 81 24 100 10/08/23 20:00 84 21 96 10/08/23 19:50 81 19 100 10/08/23 19:40 84 18 100 10/08/23 19:30 86 18 98 10/08/23 19:20 77 38 H 100 10/08/23 19:10 87 19 92 10/08/23 19:00 78 15 96 10/08/23 18:58 76 20 100 10/08/23 18:40 85 14 99 10/08/23 18:30 83 38 H 96 10/08/23 18:20 84 17 10/08/23 18:10 78 20 92 10/08/23 18:00 86 26 H 81 L 10/08/23 17:50 79 15 78 L 10/08/23 17:40 77 15 100 10/08/23 17:30 80 19 79 L O2 Del Method O2 Flow Rate 10/09/23 16:11 Nasal Cannula 2 10/09/23 13:01 10/09/23 13:01 10/09/23 12:00 10/09/23 12:00 10/09/23 11:34 10/09/23 10:01 10/09/23 10:00 10/09/23 09:59 10/09/23 09:00 10/09/23 08:02 10/09/23 08:02 10/09/23 08:00 10/09/23 08:00 10/09/23 08:00 Nasal Cannula 3 10/09/23 07:24 10/09/23 07:24 10/09/23 07:12 10/09/23 06:33 Nasal Cannula 2 10/09/23 04:00 10/09/23 04:00 Nasal Cannula 4 10/09/23 03:00 10/09/23 03:00 10/09/23 02:00 10/09/23 01:02 10/09/23 01:02 10/09/23 01:00 10/09/23 00:00 10/09/23 00:00 10/09/23 00:00 10/09/23 00:00 10/08/23 23:01 10/08/23 23:00 10/08/23 22:59 10/08/23 22:02 10/08/23 22:02 10/08/23 21:30 10/08/23 21:01 10/08/23 21:01 10/08/23 21:00 10/08/23 21:00 Nasal Cannula 2 10/08/23 20:09 10/08/23 20:09 10/08/23 20:00 10/08/23 19:50 10/08/23 19:40 10/08/23 19:30 10/08/23 19:20 10/08/23 19:10 10/08/23 19:00 10/08/23 18:58 10/08/23 18:40 10/08/23 18:30 10/08/23 18:20 10/08/23 18:10 10/08/23 18:00 10/08/23 17:50 10/08/23 17:40 10/08/23 17:30 Cardiovascular + regular rate Respiratory + respiratory effort normal Pre-Sedation Airway Assessment Smoking Status: Current every day smoker Hx Sleep Apnea: No Hx Difficult Intubation: No Short, Thick Neck: Yes Thyromental Distance: < 3.5 Finger Breadths Oral Cavity: + Dental Abnormalities Mallampati Class: III ASA: ASA3 NPO Status Date of Last Intake of Fluids: 10/08/23 Time of Last Intake of Fluids: 18:00 Date of Last Intake of Solid Food: 10/08/23 Time of Last Intake of Solid Foods: 18:00 Procedure Planning Contraindications for Sedation: none Current Medications Reviewed: Yes Notes The planned sedation has been discussed with the patient. Informed Consent was obtained. I have identified the patient, determined the appropriateness of sedation and have assessed the patient immediately prior to the procedure. All medicine(s) and interventions are by my order.
--- NOTE | 2023-10-09 17:38 | Cardiac Catheterization ---
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 Ongoing dyspnea with chest tightness. Access: 5 Fr left DOFFER under ultrasound guidance Catheters: [email or web address] Findings: For full details of patient's coronary angiography including LMCA, LAD, circumf norberto please see cath report from Dr. Felipe on 10/07/2023. Left system with only mild disease except for 50% stenosis in small distal LAD as approaches apex. RCA -dominant, large caliber, ectatic tortuous vessel. 30% proximal to mid disease. Mid/distal vessel with luminal regularities. RPDA with 40-50% ostial stenosis. Right posterior AV branch after takeoff of PDA 100% occluded with dye staining potentially consistent with dissection. LVEDP -33 Arterial Closure: Angio-Seal Summary: 1. 100% occluded right posterior AV branch after PDA 2. Elevated left-sided filling pressures. LVEDP 33 Recommendations: Patient now more than 48 hours from his initial MT. Troponin has peaked and presenting chest pain resolved. Minimal potential benefit from repeat attempted intervention to occlusion this far out from MT. Recommend continued medical management. Can discontinue IV heparin Continue DAPT with aspirin, clopidogrel Given additional 40 mg of IV Lasix for elevated filling pressures Hemodynamics Rest Ao:: 113/70/92 Final Ao: 105/76/90 LV: 112/33 Recommendations Recommendations: Medical Therapy and/or Counseling Specimens Specimens: None Radiation Exposure (mGy) 514 Contrast (mls) 30 Anesthesia Moderate [id number] Procedural Complication(s) None Disposition ICU I attest to the content of the Intraoperative Record and any orders documented therein. Any exceptions are noted below. [facility] Card Cath Procedure Codes Cardiac Catheterization Procedure 1: Cardiovascular Cath Procedures: 41111 Left Heart Cath (+/-LV) Therapeutic Services & Ancillary Procedure 1: Cardiovascular Tx and Anc Procedures: 01981 Ultrasonic Guidance Vascular Access Moderate Sedation Procedure 1: Sedation/Anesthesia: 32813 Mod Sedation by the same physician;Init15 Min Child Age 5 & Up PG Care Time/CCT Total # of Minutes Spent Total Time Spent with Patient: Total time spent is greater than 50% in coordination of care (as documented) at patient's floor/unit and/or counseling patient:
--- NOTE | 2023-10-09 17:47 | Cardiology Progress Note ---
Date of Service October 09, 2023 Assessment & Plan (1) CAD (coronary artery disease): Plan: Occluded right posterior AV branch 40 to 50% ostial RPDA Mild to moderate LAD disease 2. Acute heart failure--preserved LV function. 3. Type 2 diabetes 4. Hypertension 5. Dyslipidemia 6. Mild mitral regurgitation 7. JONAS 8. Tobacco abuse Cardiac cath today reviewed occluded right posterior AV branch. Patient now 48 hours from GA, his troponins peaked and no recurrent anginal symptoms. GA is in the past and at this point there is minimal potential benefit from attempted revascularization of occluded PAV (particularly with questionable adherence to DAPT going forward). Recommend medical management of his CAD. Feel majority of residual symptoms secondary to acute heart failure with significantly elevated LVEDP on cath. Will need additional diuresis. Plan: Given 40 of IV Lasix in Bead Cutter Additional Lasix tomorrow and on discharge Can discontinue heparin infusion Continue DAPT with aspirin, clopidogrel Continue current metoprolol Add back lisinopril 5 mg daily Continue current statin Continue PPI From a cardiac standpoint okay to transfer to telemetry. Possibly home tomorrow if dyspnea/hypoxia improved Admission and Anticipated Discharge Date Admission Date: October 08, 2023 Subjective This morning patient still with intermittent dyspnea, particularly O2 turned down. With dyspnea had some chest tightness but different than presenting chest pain. Telemetry reviewedsinus, no events Review of Systems Review of Systems: All systems reviewed & are unremarkable except as noted in HPI & below Physical Exam Physical Exam: General: Comfortable HEENT: Sclerae anicteric Lungs: Clear to auscultation bilaterall Cardiac: Regular rate and rhythm, no murmurs. Vascular: 2+ radial. 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 Abdomen: Soft, nontender Extremities: Well perfused, no peripheral edema Neuro: Nonfocal Psych: Alert orient x3, normal affect and mood Results & Data Vital Signs (Past 12 Hours) Vital Signs Temp Pulse Pulse Resp BP BP Pulse Ox 10/09/23 16:11 90 18 110/74 100 10/09/23 13:01 127/85 10/09/23 13:01 69 26 H 98 10/09/23 12:00 98 H 21 95 10/09/23 12:00 76 10/09/23 11:34 76 22 97 10/09/23 10:01 76 13 98 10/09/23 10:00 116/82 10/09/23 09:59 72 12 98 10/09/23 09:00 75 17 97 10/09/23 08:02 78 24 96 10/09/23 08:02 119/82 10/09/23 08:00 84 14 96 10/09/23 08:00 78 10/09/23 08:00 10/09/23 07:24 110/80 10/09/23 07:24 83 25 H 96 10/09/23 07:12 96 10/09/23 06:33 98.2 F 80 17 122/82 98 O2 Del Method O2 Flow Rate 10/09/23 16:11 Nasal Cannula 2 10/09/23 13:01 10/09/23 13:01 10/09/23 12:00 10/09/23 12:00 10/09/23 11:34 10/09/23 10:01 10/09/23 10:00 10/09/23 09:59 10/09/23 09:00 10/09/23 08:02 10/09/23 08:02 10/09/23 08:00 10/09/23 08:00 10/09/23 08:00 Nasal Cannula 3 10/09/23 07:24 10/09/23 07:24 10/09/23 07:12 10/09/23 06:33 Nasal Cannula 2 PG Care Time/CCT Total # of Minutes Spent Total Time Spent with Patient: Total time spent is greater than 50% in coordination of care (as documented) at patient's floor/unit and/or counseling patient: Coding Level of Care Code 21245 SUB INP/OBS CARE 3/50MIN Diagnoses CAD (coronary artery disease) I25.10
[2023-10-09] MEDS: FUROSEMIDE 40 MG/4 ML VIAL IV ONE (18:00)
[2023-10-10 04:54] LABS: BUN Creatinine Ratio 16.1 (10-20); Calcium 8.6 mg/dl (8.6-10.3); Creatinine Clr Calc Pharmacy 120.5 ml/min; Est GFR (African American) 118.6 ml/min; Est GFR (Non-African American) 102.3 ml/min; Potassium 3.7 mmol/L (3.5-5.1)
[2023-10-10] MEDS: lisinopril 5 MG TAB PO SCH (07:48)
--- NOTE | 2023-10-10 10:43 | Cardiology Progress Note ---
Date of Service October 10, 2023 Assessment & Plan (1) CAD (coronary artery disease): Plan: Occluded right posterior AV branch 40 to 50% ostial RPDA Mild to moderate LAD disease 2. Acute heart failure--preserved LV function. 3. Type 2 diabetes 4. Hypertension 5. Dyslipidemia 6. Mild mitral regurgitation 7. JONAS 8. Tobacco abuse 9. Hyponatremia Feeling well this morning and wants to go home. No recurrent angina. Hemodynamically and electrically stable. Hypoxia resolved. No signs of heart failure on exam. No new access site complications. From a cardiac standpoint okay with discharge today. Continue DAPT with aspirin, clopidogrel Continue current metoprolol, lisinopril 5 mg daily Continue current statin Continue PPI Stop home hydrochlorothiazide. Replace with Lasix 20 mg daily. Follow-up with cardiology 1 to 2 weeks. Wishes to follow-up with [facility] cardiology. Admission and Anticipated Discharge Date Admission Date: October 08, 2023 Subjective Feeling better this morning. No additional chest pain. Shortness of breath improved. Some tenderness at bilateral groin access sites. No other new chloe rns. Telemetry reviewedsinus, no events Review of Systems Review of Systems: All systems reviewed & are unremarkable except as noted in HPI & below Physical Exam Physical Exam: General: Comfortable HEENT: Sclerae anicteric Lungs: Clear to auscultation bilaterally Cardiac: Regular rate and rhythm, no murmurs. Vascular: 2+ radial. 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 Left FAN BLADE ALIGNER access site tender, no ecchymosis/hematoma. Abdomen: Soft, nontender Extremities: Well perfused, no peripheral edema Neuro: Nonfocal Psych: Alert orient x3, normal affect and mood Results & Data Vital Signs (Past 12 Hours) Vital Signs Temp Pulse Pulse Resp BP BP Pulse Ox 10/10/23 07:44 99.0 F 10/10/23 06:38 92 H 19 97 10/10/23 04:00 76 18 99/78 L 95 10/10/23 03:01 88 22 95 10/10/23 02:00 78 16 94 10/10/23 01:00 85 15 92 10/10/23 00:23 122/71 10/10/23 00:20 105 H 20 96 10/10/23 00:00 92 H 14 96 10/10/23 00:00 87 18 93 05/03/24 00:00 88 10/09/23 23:33 18 93 10/09/23 23:00 123/85 10/09/23 23:00 90 20 93 O2 Del Method 10/10/23 07:44 10/10/23 06:38 Room Air 10/10/23 04:00 Room Air 10/10/23 03:01 10/10/23 02:00 10/10/23 01:00 Room Air 10/10/23 00:23 10/10/23 00:20 10/10/23 00:00 10/10/23 00:00 Room Air 10/10/23 00:00 10/09/23 23:33 Room Air 10/09/23 23:00 10/09/23 23:00 Room Air PG Care Time/CCT Total # of Minutes Spent Total Time Spent with Patient: Total time spent is greater than 50% in coordination of care (as documented) at patient's floor/unit and/or counseling patient: Coding Level of Care Code 23234 SUB INP/OBS CARE 3/50MIN Diagnoses CAD (coronary artery disease) I25.10
--- NOTE | 2023-10-10 12:32 | Electrocardiogram Report ---
Test Reason : Blood Pressure : / mmHG Vent. Rate : 070 BPM Atrial Rate : 070 BPM P-R Int : 138 ms QRS Dur : 080 ms QT Int : 390 ms P-R-T Axes : 018 021 -06 degrees QTc Int : 421 ms Sinus rhythm with Premature atrial complexes Serial changes of evolving Inferior infarct Abnormal ECG When compared with ECG of 07-OCT-2023 13:20, Premature atrial complexes are now Present ST no longer elevated in Inferior leads ST no longer depressed in Lateral leads T wave inversion now evident in Inferior leads T wave inversion no longer evident in Anterolateral leads Confirmed by Bud Knight ([id number]) on 10/10/2023 12:31:36 PM Referred By: REFERRED SELF Confirmed By:Bud Knight
--- NOTE | 2023-10-10 12:33 | Electrocardiogram Report ---
Test Reason : Blood Pressure : / mmHG Vent. Rate : 066 BPM Atrial Rate : 066 BPM P-R Int : 136 ms QRS Dur : 086 ms QT Int : 410 ms P-R-T Axes : 042 003 018 degrees QTc Int : 429 ms Normal sinus rhythm Inferior infarct (cited on or before 08-OCT-2023) Abnormal ECG When compared with ECG of 08-OCT-2023 02:20, (unconfirmed) Premature atrial complexes are no longer Present Serial changes of Inferior infarct Present Confirmed by Bud Knight ([id number]) on 10/10/2023 12:33:13 PM Referred By: REFERRED SELF Confirmed By:Bud Knight
--- NOTE | 2023-10-10 12:36 | Electrocardiogram Report ---
Test Reason : Blood Pressure : / mmHG Vent. Rate : 072 BPM Atrial Rate : 072 BPM P-R Int : 136 ms QRS Dur : 084 ms QT Int : 384 ms P-R-T Axes : 055 006 042 degrees QTc Int : 420 ms Normal sinus rhythm Inferior infarct (cited on or before 08-OCT-2023) Abnormal ECG When compared with ECG of 08-OCT-2023 08:21, (unconfirmed) No significant change was found Confirmed by Bud Knight ([id number]) on 10/10/2023 12:35:43 PM Referred By: REFERRED SELF Confirmed By:Bud Knight
--- NOTE | 2023-10-10 12:40 | Electrocardiogram Report ---
Test Reason : Blood Pressure : / mmHG Vent. Rate : 088 BPM Atrial Rate : 088 BPM P-R Int : 138 ms QRS Dur : 082 ms QT Int : 338 ms P-R-T Axes : 016 004 -08 degrees QTc Int : 408 ms Normal sinus rhythm Inferior infarct (cited on or before 08-OCT-2023) Abnormal ECG When compared with ECG of 08-OCT-2023 11:57, (unconfirmed) ST now depressed in Lateral leads Inverted T waves have replaced nonspecific T wave abnormality in Inferior leads Confirmed by Bud Knight ([id number]) on 10/10/2023 12:39:50 PM Referred By: REFERRED SELF Confirmed By:Bud Knight
--- NOTE | 2023-10-10 13:17 | Hospitalist Progress Note ---
Date of Service October 10, 2023 Assessment & Plan (1) Acute OK, inferior wall: Plan: Bennie Cohen is a 38y/o male with PMH of HTN, DM type II, hypercholesteremia, acid reflux, obesity, JONAS and tobacco use disorder [2.5 pack/day] who presented to the ED via EMS for evaluation of chest pain and was found to have an acute inferior ST elevation OK. STEMI Acute heart failure with preserved LV function--POA --S/P left heart catheterization on 10/07/2023--unsuccessful at ballooning/stenting of culprit RCA lesion due to difficult anatomy --CXR:There is prominence of the pulmonary vasculature. Correlate clinically for evidence of fluid overload.. No airspace consolidation or pleural effusion is identified. --ECHO: Mild concentric LVH. EF 55 to 60% basal to mid inferior wall severely hypokinetic to akinetic. Basal septal and inferolateral wall mildly hypokinetic. Normal RV size and function. Mild mitral regurgitation. Normal estimated PA pressure. -- HbA1c 7.9 --Lipid panel within normal limits --Elevated troponin --IV heparin discontinued --Continue aspirin, Lipitor, Plavix, lisinopril, metoprolol --Continue PPI --HCTZ will be replaced with Lasix 20 mg daily per cardiology Appreciate critical care, cardiology input Plan to be discharged home today Needs follow-up with cardiology in 1-2 week (2) Acute OK, true posterior wall: (3) Obstructive sleep apnea, adult: Plan: -Hx of noncompliance with CPAP (4) Tobacco abuse: Plan: Counseled to quit smoking . (5) Diabetes: Plan: HbA1c 7.9 Continue insulin per protocol Monitor BGs (6) Hypertension: Plan: On Lisinopril-HCTZ at home Continue lisinopril, HCTZ transition to Lasix Monitor and adjust medications as needed (7) Hypercholesteremia: Plan: Continue statin DVT Px: IV heparin discontinued Code Status: Full Code Admission and Anticipated Discharge Date Admission Date: October 08, 2023 Subjective Patient is seen and examined at bedside States feeling well today Angina resolved Saturating well on room air Reports chronic cough which she attributes to smoking Denies any nausea, dizziness, dyspnea Eager to get discharged Discussed with cardiology today Review of Systems Review of Systems: All systems reviewed & are unremarkable except as noted in Subjective Physical Exam Physical Exam: Physical Exam: Vitals signs as noted above General Appearance:Obese, no apparent distress Head: normocephalic, Atraumatic Eyes: normal inspection, EOMI Neck: supple, Trachea midline Respiratory/Chest: Decreased breath sounds, CTA, No accessory muscle use Cardiovascular: S1, S2, No murmur Abdomen/GI:Soft, Non tender, Bowel sounds present Extremities/Musculoskeletal:normal inspection, no edema Neurologic/Psych:AAOX3, grossly no focal neurological deficits Skin: normal color, warm Results & Data Results & Data Vital Signs (Past 12 Hours) Vital Signs Temp Pulse Pulse Resp BP BP Pulse Ox 10/10/23 12:50 101/65 10/10/23 11:00 62 19 95 10/10/23 11:00 98/56 L 10/10/23 10:00 84/69 L 10/10/23 09:01 74 19 94 10/10/23 09:00 91/62 L 10/10/23 08:58 73 23 90 10/10/23 08:01 94 H 13 94 10/10/23 08:00 131/81 10/10/23 08:00 37.2 C 10/10/23 08:00 92 H 10/10/23 07:57 97 H 21 95 10/10/23 07:44 37.2 C 10/10/23 07:00 90 18 94 10/10/23 06:38 92 H 19 97 10/10/23 04:00 76 18 99/78 L 95 10/10/23 03:01 88 22 95 10/10/23 02:00 78 16 94 O2 Del Method 10/10/23 12:50 10/10/23 11:00 10/10/23 11:00 10/10/23 10:00 10/10/23 09:01 10/10/23 09:00 10/10/23 08:58 10/10/23 08:01 10/10/23 08:00 10/10/23 08:00 10/10/23 08:00 10/10/23 07:57 10/10/23 07:44 10/10/23 07:00 10/10/23 06:38 Room Air 10/10/23 04:00 Room Air 10/10/23 03:01 10/10/23 02:00 Laboratory Results Short CBC 10/09/23 Range/Units 15:25 WBC 14.15 H (4.8-10.8) K/ul Hgb 13.6 L (14.0-18.0) g/dl Hct 38.0 L (42.0-52.0) % Plt Count 186 (130-400) K/uL BMP 10/10/23 04:21 Sodium 130 L Potassium 3.7 Chloride 101 Carbon Dioxide 22 BUN 15 Creatinine 0.93 Glucose 153 H Calcium 8.6 (5) Diabetes Diabetes mellitus type: type 2 (6) Hypertension Hypertension type: unspecified Qualified Code(s): I10 - Essential (primary) h ypertension
--- NOTE | 2023-10-10 13:37 | Discharge Summary ---
Date of Service October 10, 2023 Admission HPI Per Admitting Provider Bennie Cohen is a 38y/o male with PMH of HTN, DM type II, hypercholesteremia, acid reflux, obesity, JONAS and tobacco use disorder [2.5 pack/day] who presented to the ED via EMS for evaluation of chest pain. History obtained from the patient, PCP records and prior documentation from current visit. Patient reported SOB and substernal chest pain beginning around noon. Patient's spouse called 911. Patient was found to have an abnormal EKG by EMS. Heart alert was activated at that time. He was then evaluated in the ED, where he was loaded with aspirin and Brilinta. EKG was confirmed to be an acute inferior ST elevatio n DE by Dr. Felipe in the ED. Patient was seen in the ICU s/p cardiac catheterization. Patient was accompanied by his , Trista. Patient reiterated the events leading up to his arrival in the ED via EMS, which are described above. Patient states that he did not take any of his prescribed home medications this morning before going to work. Patient reports that he left work around 10am this morning [patient works day shift] d/t feeling sweaty and generally uncomfortable. He continued to not feel well at home. Then, as mentioned above, the substernal chest pain and SOB started around noon. He called his , who had recently left their house to take her mother to an appointment, and instructed her to return back home. His then called 911 from their house when she returned home, as previously outlined, and that led to his arrival at the ED for further evaluation. Patient does report that he consumes approximately 3-4 Monster energy drinks per day, in addition to smoking [as described above]. Patient's states that he was provided with a nicotine patch to help ease the symptoms of nicotine withdrawal. At this time, patient reports no chest pain or SOB. He also denies any GI dysfunction or urinary issues. Patient mentions that he is feeling much better now since being transferred from the cardiac catheterization suite to the ICU. Patient reports that he did consume dinner w/o any complications, such as dysphagia. Admission Exam Per Admitting Provider General Appearance: WD/WN, vitals as above, NAD, sitting up in bed, pleasant, conversing. Head: Normocephalic, atraumatic Eyes: Normal inspection, PERRL, conjunctivae normal, anicteric sclerae ENT: External ear and nose normal, oropharynx normal Neck: Normal visual inspection, trachea midline. Nontender and supple. Respiratory: Normal respiratory effort, lungs clear to auscultation, no wheeze, rales, rhonchi. No accessory muscle use. Cardiovascular: Regular rate, rhythm, no murmur, normal peripheral pulses, no BLE edema. Vessels: No JVD Chest: Normal inspection of chest Abdomen/GI: Normal bowel sounds, soft, nontender, no hepatosplenomegaly Extremities/Musculoskeletal: Right wrist guard in place, no evidence of bleeding at this radial artery access site. Neurologic: PERRL, EOMI, accommodation nl, no face palsy, no dysarthria, CN's II-XI intact bilaterally and moves all extremities Psychiatric: A+Ox3, euthymic affect Skin: No rashes, normal color, warm/dry Principal Diagnosis Acute myocardial infarction Acute heart failure with preserved LV function Tobacco use disorder Discharge Data Allergies Allergy/AdvReac Type Severity Reaction Status Date / Time No Known Allergies Allergy Verified 10/07/23 19:01 Consultations 10/07/23 13:20 Consult Cardiac Catheterization Stat 10/07/23 13:23 ED Decision to Admit Stat 10/08/23 07:59 Consult Cardiology Routine 10/08/23 08:01 Consult Bridge Worker Routine Procedures Performed Operation Date: 10/09/23 16:00 Actual Procedures s Cineradiography w/Routine Exam - Ramsey Han MD p Cath, Left with Cors and Vent - Ramsey Han MD s Placement Art Occlusive Device - Ramsey Han MD s Ultrasound Vascular Access - Ramsey Han MD Ordered Studies Laboratory Results WBC 14.15 K/ul (4.8-10.8) H 10/09/23 15:25 RBC 4.38 M/uL (4.70-6.10) L 10/09/23 15:25 Hgb 13.6 g/dl (14.0-18.0) L 10/09/23 15:25 Hct 38.0 % (42.0-52.0) L 10/09/23 15:25 MCV 86.8 fL (80.0-100.0) 10/09/23 15:25 MCH 31.1 pg (25.0-34.0) 10/09/23 15:25 MCHC 35.8 g/dL (32.0-36.0) 10/09/23 15:25 RDW Std Deviation 39.6 fL (36.4-46.3) 10/09/23 15:25 RDW Coeff of Kylee 12.5 % (11.5-14.5) 10/09/23 15:25 Plt Count 186 K/uL (130-400) 10/09/23 15:25 MPV 10.6 fL (9.4-12.4) 10/09/23 15:25 Immature Gran % (Auto) 0.9 % 10/09/23 15:25 Neut % (Auto) 65.8 % 10/09/23 15:25 Lymph % (Auto) 14.8 % 10/09/23 15:25 Chaffee % (Auto) 17.5 % 10/09/23 15:25 Eos % (Auto) 0.4 % 10/09/23 15:25 Baso % (Auto) 0.6 % 10/09/23 15:25 Neut # (Auto) 9.31 K/uL (1.40-6.50) H 10/09/23 15:25 Lymph # (Auto) 2.10 K/uL (1.20-3.40) 10/09/23 15:25 Chaffee # (Auto) 2.48 K/uL (0.11-0.59) H 10/09/23 15:25 Eos # (Auto) 0.05 K/uL (0.00-0.50) 10/09/23 15:25 Baso # (Auto) 0.08 K/uL (0.00-0.20) 10/09/23 15:25 Immature Gran # (Auto) 0.13 K/uL (0.01-0.20) 10/09/23 15:25 PT 11.2 Seconds (9.0-12.0) 10/07/23 13:48 INR 1.0 (0.9-1.1) 10/07/23 13:48 APTT 75 Seconds (21-31) H 10/07/23 13:48 PTT Ratio 2.7 10/07/23 13:48 Activ Coag Time Kaolin 158 SECONDS (94-140) H 10/07/23 14:24 Heparin Anti-Xa, Unfract 0.22 IU/ml (0.3-0.7) L 10/09/23 12:34 Sodium 130 mmol/L (136-145) L 10/10/23 04:21 Potassium 3.7 mmol/L (3.5-5.1) 10/10/23 04:21 Chloride 101 mmol/L (98-107) 10/10/23 04:21 Carbon Dioxide 22 mmol/L (21-32) 10/10/23 04:21 Anion Gap 7 (3-11) 10/10/23 04:21 BUN 15 mg/dl (6-23) 10/10/23 04:21 Creatinine 0.93 mg/dl (0.6-1.4) 10/10/23 04:21 Est Cr Clr Drug Dosing 120.5 ml/min 10/10/23 04:21 Est GFR ( Amer) 118.6 ml/min 10/10/23 04:21 Est GFR (Non-Af Amer) 102.3 ml/min 10/10/23 04:21 BUN/Creatinine Ratio 16.1 (10-20) 10/10/23 04:21 Glucose 153 mg/dl (70-99(Fasting)) H 10/10/23 04:21 POC Glucose 119 mg/dl (70-99) H 10/10/23 11:32 Estimat Average Glucose 157 mg/dl 10/08/23 07:33 Hemoglobin A1c 7.1 % (4.5-5.6) H 10/08/23 07:33 Lactate 1.0 mmol/L (0.4-2.0) 10/08/23 08:48 Calcium 8.6 mg/dl (8.6-10.3) 10/10/23 04:21 Magnesium 2.2 mg/dl (1.7-2.4) 10/09/23 02:33 Total Bilirubin 0.5 mg/dl (0.2-1.0) 10/07/23 13:48 AST 35 U/L (13-39) 10/07/23 13:48 ALT 59 U/L (7-52) H 10/07/23 13:48 Alkaline Phosphatase 54 U/L (34-104) 10/07/23 13:48 Troponin I High Sens 94482.5 pg/ml (0-20) H* 10/09/23 02:33 Total Protein 6.9 gm/dl (6.0-8.3) 10/07/23 13:48 Albumin 4.1 gm/dl (3.4-5.0) 10/07/23 13:48 Globulin 2.8 gm/dl (2.5-4.0) 10/07/23 13:48 Albumin/Globulin Ratio 1.5 (0.9-2) 10/07/23 13:48 Triglycerides 143 mg/dl (0-150) 10/08/23 07:33 Cholesterol 133 mg/dl (0-200) 10/08/23 07:33 LDL Cholesterol, Calc 72 mg/dl 10/08/23 07:33 VLDL Cholesterol, Calc 29 mg/dl (0-30) 10/08/23 07:33 HDL Cholesterol 32 mg/dl 10/08/23 07:33 Cholesterol/HDL Ratio 4.2 (0-5) 10/08/23 07:33 Lipase 140 U/L (11-82) H 10/07/23 13:48 Nasal Screen MRSA (PCR) Negative (Negative) 10/07/23 15:35 Impressions Chest X-Ray 10/08/23 08:18 SINGLE VIEW CHEST CLINICAL HISTORY: Hypoxia FINDINGS: An AP, portable, upright chest radiograph is compared to study dated 05/24/2022. The cardiomediastinal silhouette is unremarkable. There is prominence of the pulmonary vasculature. There is mild bibasilar atelectasis. The lungs and pleural spaces are otherwise clear. No pneumothorax is seen. The bony thorax is grossly intact. IMPRESSION: 1. There is prominence of the pulmonary vasculature. Correlate clinically for evidence of fluid overload. 2. No airspace consolidation or pleural effusion is identified. ACT 112: Negative or not required by law. Electronically signed by: Carlos Alegria M.D. 10/08/2023 8:33 AM Hospital Course (1) Acute DE, inferior wall: Bennie Cohen is a 38y/o male with PMH of HTN, DM type II, hypercholesteremia, acid reflux, obesity, JONAS and tobacco use disorder [2.5 pack/day] who presented to the ED via EMS for evaluation of chest pain and was found to have an acute inferior ST elevation DE. STEMI Acute heart failure with preserved LV function--POA --S/P left heart catheterization on 10/07/2023--unsuccessful at ballooni ng/stenting of culprit RCA lesion due to difficult anatomy --CXR:There is prominence of the pulmonary vasculature. Correlate clinically for evidence of fluid overload.. No airspace consolidation or pleural effusion is identified. --ECHO: Mild concentric LVH. EF 55 to 60% basal to mid inferior wall severely hypokinetic to akinetic. Basal septal and inferolateral wall mildly hypokinetic. Normal RV size and function. Mild mitral regurgitation. Normal estimated PA pressure. -- HbA1c 7.9 --Lipid panel within normal limits --Elevated troponin --IV heparin discontinued --Continue aspirin, Lipitor, Plavix, lisinopril, metoprolol --Continue PPI --HCTZ will be replaced with Lasix 20 mg daily per cardiology Appreciate critical care, cardiology input Plan to be discharged home today Needs follow-up with cardiology in 1-2 week (2) Acute DE, true posterior wall: (3) Obstructive sleep apnea, adult: -Hx of noncompliance with CPAP (4) Tobacco abuse: Counseled to quit smoking . (5) Diabetes: HbA1c 7.9 Continue insulin per protocol Monitor BGs (6) Hypertension: On Lisinopril-HCTZ at home Continue lisinopril, HCTZ transition to Lasix Monitor and adjust medications as needed (7) Hypercholesteremia: Continue statin DVT Px: IV heparin discontinued Code Status: Full Code Total Time Total Time Spent Total Time Spent (In Minutes): 58 minutes Discharge Plan Discharge Items Patient Disposition: Home - Self-Care Reason For Visit: HEART ALERT Discharge Diagnosis: Acute myocardial infarction Acute heart failure with preserved LV function Tobacco use disorder Activity: Per Instructions section Exercise/Sports: Wait until after follow-up appointment Non-emergency contact: Primary Care Provider and Curator Of Manuscripts Call non-emergency contact if: you have any medication questions, your symptoms worsen and your pain is concerning for you Follow-up/Referrals: Erika Sebastian DO [Primary Care Provider] - (Date & Time 10/17/2023 11:10 AM Provider Erika Sebastian DO [facility] ) Diet: Carb Consistent or DM2 and Heart Healthy Addtl Attending Provider Instructions: Follow-up with your primary care physician Dr. Sebastian on 10/17/2023 11:10 AM Follow-up with your specifications writer in 1 to 2 weeks as recommended by your specifications writer --Quit smoking tobacco and recommend no smoking while on nicotine patch. -- Your Varenicline is discontinued as it has risks to precipitate heart attacks --Your omeprazole is changed to pantoprazole as it can cause interactions with Plavix --Further medication changes as below. Seek immediate medical attention if your symptoms reoccur or worsen Please take all medications as instructed on discharge list below. Please call if you have any questions or problems. You can reach a [facility] hospitalist on duty at [facility] 24 hours a day by calling [phone] Home Care: * Take your medications exactly as directed. Don't skip doses. * Remember that recovery after a heart attack takes time. Plan to rest for at lease 4-8 weeks while you recover. Then return to normal activity when your doctor says it's okay. * Ask your doctor about joining a heart rehabilitation program. * Tell your doctor if you are feeling depressed. Feelings of sadness are common after a heart attack, but it is important that you speak to someone if you are feeling overwhelmed by these feelings. * If you are having chest pain, call 911 for an ambulance. Do NOT drive yourself to the hospital. * Ask your family members to learn CPR. * Learn to take your own blood pressure and pulse. Keep a record of your results. Ask your doctor when you should seek emergency medical attention. He or she will tell you which blood pressure reading is dangerous. Lifestyle Changes: * Maintain a healthy weight. Get help to lose any extra pounds. * Cut back on salt. * Limit canned, dried, packaged, and fast foods. * Don't add salt to your food. * Season foods with herbs instead of salt when you cook. * Break the smoking habit. Enroll in a stop-smoking program to improve your chances of success. * Limit fatty foods. * Ask your doctor about having your lipid levels checked regularly. * Build up your activity according to your doctor's recommendation. * Ask your doctor when it's okay to resume sexual activity. * Tell your doctor about any erectile dysfunction (ED) medication you are taking. Some ED medications are not safe if you take certain heart medications. * Try to manage stress. Follow Up: It is important for you to keep your follow up appointments with your medical provider. Pending Studies at Discharge: No Stand-Alone Forms: My [facility], Smoking Cessation Medications and DC Order Prescriptions: New atorvastatin 40 mg Tablet 40 mg PO QAM Qty: 30 1RF clopidogrel 75 mg Tablet 75 mg PO QAM Qty: 30 1RF aspirin 81 mg Tablet,Delayed Release (Dr/Ec) 81 mg PO QAM Qty: 30 1RF pantoprazole 40 mg Tablet,Delayed Release (Dr/Ec) 40 mg PO DAILY Qty: 30 1RF nicotine [Nicoderm CQ] 21 mg/24 hr Patch 24 Hour 1 patch transdermal QAM Qty: 30 0RF lisinopril [Zestril] 5 mg Tablet 5 mg PO QAM Qty: 30 1RF metoprolol tartrate 25 mg Tablet 25 mg PO BID Qty: 60 1RF Continued metformin 1,000 mg tablet 1,000 mg PO BIDM albuterol sulfate 2.5 mg NEB DIRECTED Discontinued atorvastatin 20 mg tablet 20 mg PO DAILY lisinopril-hydrochlorothiazide 10-12.5 mg tablet 12.5 tab PO DAILY omeprazole 20 mg capsule,delayed release(DR/EC) 20 mg PO DAILY varenicline 0.5 mg tablet 0.5 mg PO BID Discharge Orders: Discharge Order (Routine); Ordered 10/10/23 Ordered By: George Moreno/Other Patient Handouts: Managing Type 2 Diabetes, Diabetes: Meal Planning Admission Data Admit Date/Time: 10/08/23 09:26 Attending Provider: George Moon Admit Provider: Valeria Frias Primary Care Provider: Erika Sebastian Other Providers: Stanley Felipe; Valeria Frias; Baldomero Steele
== END 2023-10-10 14:05 | disposition home or self-care (01) | DRG 280 ==
LOC: ED 13:15 → 1E 13:32 → CC 13:32 → 1E 13:33 → SUATTDRO 13:35
PROC: CLB.CCO (2023-10-07 13:30)